=== PATIENT | male | born 1940 | race Caucasian/White ===

== ENCOUNTER 2017-12-18 08:06 | Inpatient (IN) | payer MEDICARE ==
[2017-12-18] VITALS (12 sets, daily range): BP systolic 114–156; BP diastolic 77–108
[~2017-12-18] VITALS: Ht 175.3 cm; Wt 80.1 kg
[~2017-12-18 08:06] MED LIST: ALBU17AE23 IH; ASPI-586 PO; CLOP75TA28 PO; HYDR-2890 PO; KETO75CA PO; LISI20TA PO; METH-53 PO; TR1C15 TD
--- OUTSIDE RECORDS SUMMARY | 2017-12-18 08:11 | XMS REPORT | Continuity of Care Document ---
Author Author [facility] Organization [facility] Address Unknown Phone Unavailable Allergies Active Description Code Type Severity Reaction Onset Reported/Identified Relationship to Patient Clinical Status Yes No Known Drug Allergies [id number] Drug Allergy Unknown N/A 08/20/2014 Medications There is no data. 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 Results There is no data. Encounters ACCT No. Visit Date/Time Discharge Status Pt. Type Provider Facility Loc./Unit Complaint [id number] 02/09/2016 21:30:00 02/10/2016 01:48:00 DIS Emergency ESDRAS RATLIFF DO [facility] ER [id number] 08/20/2014 22:34:00 08/21/2014 03:58:00 DIS Emergency ESDRAS RATLIFF DO [facility] ER
[2017-12-18] MEDS ORDERED: NITROGLYCERIN 0.4 MG SL TABS BTL 25'S SL ONE (08:18)
[2017-12-18] MEDS: NS IV 1000 ML 1,000 ML IV SCH ×4 (08:24→20:05)
[2017-12-18] MEDS ORDERED: NITROGLYCERIN 0.4 MG SL TABS BTL 25'S SL PRN ×2 (08:30→13:45)
[2017-12-18 08:33] LABS: BASOPHILS # (AUTO) 0.1 10^3/uL (0.0-0.1); BASOPHILS % (AUTO) 1 % (0-10); EOSINOPHILS # (AUTO) 0.6 10^3/uL (0.0-0.3); EOSINOPHILS % (AUTO) 3 % (0-10); HEMATOCRIT 42 % (40-54); HEMOGLOBIN 14.5 G/DL (13.3-17.7); LYMPHOCYTES # (AUTO) 3.6 X 10^3 (1.0-4.0); LYMPHOCYTES % (AUTO) 19 % (12-44); MEAN CORPUSCULAR HEMOGLOBIN 31 PG (25-34); MEAN CORPUSCULAR HGB CONC 34 G/DL (32-36); MEAN CORPUSCULAR VOLUME 89 FL (80-99); MEAN PLATELET VOLUME 9.7 FL (7.4-10.4); MONOCYTES # (AUTO) 1.1 X 10^3 (0.0-1.0); MONOCYTES % (AUTO) 6 % (0-12); NEUTROPHILS # (AUTO) 13.3 X 10^3 (1.8-7.8); NEUTROPHILS % (AUTO) 72 % (42-75); PLATELET COUNT 310 10^3/uL (130-400); RED BLOOD COUNT 4.75 10^6/uL (4.35-5.85); RED CELL DISTRIBUTION WIDTH 13.2 % (10.0-14.5); WHITE BLOOD COUNT 18.6 10^3/uL (4.3-11.0)
--- NOTE | 2017-12-18 08:35 | ED Chest Pain ---
General Chief Complaint: Chest Pain Stated Complaint: CHEST PAIN Source: patient, EMS Exam Limitations: no limitations History of Present Illness Date Seen by Provider: Dec 18, 2017 Time Seen by Provider: 08:27 Initial Comments This 77-year-old white male presents with a history of sudden chest pain and shortness of breath at 4 a.m. (4-1/2 hours prior to presentation to the emergency department). 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 The patient has had previous stents by his brim shaper in [place]. The patient has had thrombophlebitis but no pulmonary emboli. The patient describes his chest pain is somewhat diffuse throughout his chest and 8-9/10 in terms of severity at onset. On arrival the emergency department patient relate his chest pain was a 4 to a 5 /10. The patient has had diaphoresis. He denies vomiting. Allergies and Home Medications Allergies Coded Allergies: codeine (Verified Allergy, Unknown, 12/18/17) Home Medications Aspirin 81 Mg Tablet.dr, 81 MG PO DAILY, (Reported) Clopidogrel Bisulfate 75 Mg Tablet, 1 TAB PO DAILY, (Reported) Hydrocodone Bit/Acetaminophen 1 Each Tablet, 1 EACH PO PRN PRN for PAIN, ( Reported) Lisinopril 20 Mg Tablet, 20 MG PO DAILY, (Reported) Triamcinolone Acet 15 Gm Cr, 1 TD UD, (Reported) Patient Home Medication List Home Medication List Reviewed: Yes Review of Systems Constitutional: No chills, diaphoresis, No fever, weakness EENTM: No Double Vision Respiratory: Denies Cough, SOA at Rest Cardiovascular: See HPI, Chest Pain, Denies Irregular Heart Rate, Denies Palpitations Gastrointestinal: Denies Abdominal Pain, Denies Diarrhea, Denies Vomiting Genitourinary: Denies Burning, Denies Frequency Musculoskeletal: No back pain, No joint pain Skin: No rash Psychiatric/Neurological: No Symptoms Reported Endocrine: No Symptoms Reported Hematologic/Lymphatic: No Symptoms Reported Past Honxwcl-Tcirmy-Utcpjn Hx Immunizations Up To Date Date of Pneumonia Vaccine: Aug 01, 2013 Seasonal Allergies Seasonal Allergies: No Surgeries Surgeries: Neurological, Orthopedic, Tonsillectomy Respiratory Respiratory Disorders: COPD Cardiovascular Cardiac Disorders: Angina, Hypertension Reproductive System Hx Reproductive Disorders: No Musculoskeletal Musculoskeletal Disorders: Degenerate Disk Disease, Arthritis Blood Transfusions Adverse Reaction to a Blood Tr: No Reviewed Nursing Assessment Reviewed/Agree w Nursing PMH: Yes Physical Exam Vital Signs Vital Signs - First Documented 12/18/17 08:06 Temp 98.0 Pulse 122 Resp 18 B/P (MAP) 143/92 (109) Pulse Ox 99 O2 Delivery Nasal Cannula O2 Flow Rate 2.00 FiO2 99 Capillary Refill : General Appearance: Cachetic, Mild Distress HEENT: Normal ENT Inspection Neck: Normal Inspection Respiratory: Lungs Clear, Normal Breath Sounds, No Accessory Muscle Use Cardiovascular: Regular Rate, Rhythm, Tachycardia Gastrointestinal: Normal Bowel Sounds, Non Tender Extremity: Normal Capillary Refill, Normal Inspection, Normal Range of Motion Neurologic/Psychiatric: Alert, Oriented x3, No Motor/Sensory Deficits, Normal Mood/Affect Skin: Normal Color, Diaphoresis Critical Care Note Critical Care Total Time (minutes) 45 minutes with initial evaluation and interventions. Progress/Results/Core Measures Results/Orders Lab Results Laboratory Tests Test 12/18/17 08:20 Range/Units White Blood Count 18.6 H 4.3-11.0 10^3/uL Red Blood Count 4.75 4.35-5.85 10^6/uL Hemoglobin 14.5 13.3-17.7 G/DL Hematocrit 42 40-54 % Mean Corpuscular Volume 89 80-99 FL Mean Corpuscular Hemoglobin 31 25-34 PG Mean Corpuscular Hemoglobin Concent 34 32-36 G/DL Red Cell Distribution Width 13.2 10.0-14.5 % Platelet Count 310 130-400 10^3/uL Mean Platelet Volume 9.7 7.4-10.4 FL Neutrophils (%) (Auto) 72 42-75 % Lymphocytes (%) (Auto) 19 12-44 % Monocytes (%) (Auto) 6 0-12 % Eosinophils (%) (Auto) 3 0-10 % Basophils (%) (Auto) 1 0-10 % Neutrophils # (Auto) 13.3 H 1.8-7.8 X 10^3 Lymphocytes # (Auto) 3.6 1.0-4.0 X 10^3 Monocytes # (Auto) 1.1 H 0.0-1.0 X 10^3 Eosinophils # (Auto) 0.6 H 0.0-0.3 10^3/uL Basophils # (Auto) 0.1 0.0-0.1 10^3/uL Neutrophils % (Manual) 75 % Lymphocytes % (Manual) 21 % Monocytes % (Manual) 2 % Eosinophils % (Manual) 2 % Basophils % (Manual) 0 % Band Neutrophils 0 % Blood Morphology Comment NORMAL Prothrombin Time 13.6 12.2-14.7 SEC INR Comment 1.0 0.8-1.4 Activated Partial Thromboplast Time 28 24-35 SEC D-Dimer 2.09 H 0.00-0.49 UG/ML Sodium Level 137 135-145 MMOL/L Potassium Level 4.8 3.6-5.0 MMOL/L Chloride Level 105 98-107 MMOL/L Carbon Dioxide Level 19 L 21-32 MMOL/L Anion Gap 13 5-14 MMOL/L Blood Urea Nitrogen 45 H 7-18 MG/DL Creatinine 0.95 0.60-1.30 MG/DL Estimat Glomerular Filtration Rate > 60 BUN/Creatinine Ratio 47 Glucose Level 103 70-105 MG/DL Calcium Level 9.9 8.5-10.1 MG/DL Magnesium Level 2.4 1.8-2.4 MG/DL Total Bilirubin 0.4 0.1-1.0 MG/DL Aspartate Amino Transf (AST/SGOT) 18 5-34 U/L Alanine Aminotransferase (ALT/SGPT) 17 0-55 U/L Alkaline Phosphatase 76 40-136 U/L Myoglobin 51.9 10.0-92.0 NG/ML Troponin I < 0.30 <0.30 NG/ML B-Type Natriuretic Peptide 13.3 <100.0 PG/ML Total Protein 8.1 6.4-8.2 GM/DL Albumin 4.2 3.2-4.5 GM/DL My Orders Orders - RADHA, SOPHIA Albrecht MD Cbc With Automated Diff (12/18/17 08:19) Magnesium (12/18/17 08:19) Chest 1 View, Ap/Pa Only (12/18/17 08:19) Ekg Tracing (12/18/17 08:19) Cardiac Profile 1 (12/18/17 08:19) Comprehensive Metabolic Panel (12/18/17 08:19) Myoglobin Serum (12/18/17 08:19) Protime With Inr (12/18/17 08:19) Partial Thromboplastin Time (12/18/17 08:19) O2 (12/18/17 08:19) Monitor-Rhythm Ecg Trace Only (3/4/18 08:19) Lipid Panel (12/19/17 06:00) Nitroglycerin 0.4 Mg Btl 25's (Nitrostat (12/18/17 08:30) Saline Lock/Iv-Start (12/18/17 08:19) BNP (12/18/17 08:19) Fibrin Degradation Products (12/18/17 08:19) Nitroglycerin 0.4 Mg Btl 25's (Nitrostat (12/18/17 08:18) Manual Differential (12/18/17 08:20) Ns Iv 1000 Ml (Sodium Chloride 0.9%) (12/18/17 08:45) Enoxaparin Injection (Lovenox Injection) (12/18/17 08:45) Ct Angio Chest W (12/18/17 09:39) Iohexol Injection (Omnipaque 350 Mg/Ml 1 (12/18/17 10:00) Sodium Chloride Flush (Catheter Flush Sy (12/18/17 10:00) Ns (Ivpb) (Sodium Chloride 0.9%) (12/18/17 10:00) Pharmacy Communication (Pharmacy Communi (12/18/17 09:55) Metoprolol Succinate (Xl) Tab (Toprol Xl (12/18/17 11:45) Medications Given in ED Current Medications Medications Dose Ordered Sig/William Route Start Time Stop Time Status Last Admin Dose Admin Enoxaparin Sodium 80 mg ONCE ONCE SC 12/18/17 08:45 12/18/17 08:46 DC 12/18/17 08:45 80 MG Iohexol 150 ml ONCE ONCE IV 12/18/17 10:00 12/18/17 10:01 DC 12/18/17 10:49 100 ML Nitroglycerin 0.4 mg UD PRN SL 12/18/17 08:30 12/18/17 08:21 0.4 MG Sodium Chloride 10 ml NEEDED PRN IV 12/18/17 10:00 12/18/17 10:49 10 ML Sodium Chloride 250 ml ONCE ONCE IV 12/18/17 10:00 12/18/17 10:01 DC 12/18/17 10:49 80 ML Vital Signs/I&O Vital Sign - Last 12Hours 12/18/17 12/18/17 12/18/17 12/18/17 08:06 08:06 09:20 11:10 Temp 98.0 Pulse 122 118 120 Resp 18 18 18 B/P (MAP) 143/92 (109) 114/77 (89) 124/81 (95) Pulse Ox 99 100 99 O2 Delivery Nasal Cannula Nasal Cannula Room Air Room Air O2 Flow Rate 2.00 FiO2 99 Progress Note : Time: 08:54 Progress Note The patient's EKG demonstrated a left posterior fascicular block with a right bundle branch block. The patient's rhythm was a sinus tachycardia with rate of 120. With the patient's permission I contacted Dr. Johnson and shared the patient's EKG by telemedicine. We did not have a previous EKG here at [facility] for comparison. Dr. Johnson's recommendation was that we look closely with the patient for both cardiovascular disease and pulmonary embolus. We both felt it was reasonable to treat patient with 1 mg/kg subcutaneous of Lovenox while we are awaiting results of the studies. Dr. Johnson will present to emergency department to evaluate the patient. 1030 a.m. I established number 18 IV and right side of the patient's neck. The patient's d-dimer was elevated and I ordered a CTA for PE. The patient has been pain-free since he was given his first sublingual nitroglycerin. 11:[address] of the chest films reveal evidence of pulmonary embolus. I visited with Dr. Johnson who recommended that we initiate Toprol and admit the patient to contact stepdown. I visited with Dr. Artis who is kind enough to admit the patient. Departure Communication (Admissions) Time/Spoke to Admitting Phy: 11:[address] Artis. Time/Spoke to Consulting Phy: 09:00 Communication/Consulting Dr. Johnson. Impression Impression: Primary Impression: Chest pain Qualified Codes: R07.9 - Chest pain, unspecified Disposition: ADMITTED INPATIENT Condition: Improved Admissions Decision to Admit Reason: Admit from ER (General) Decision to Admit/Date: Dec 18, 2017 Time/Decision to Admit Time: 11:39 Departure-Patient Inst. Referrals: OSMIN GLASER MD (PCP/Family) Primary Care Physician SOPHIA GARCIA MD Dec 18, 2017 08:35
[2017-12-18 08:36] LABS: PROTHROMBIN TIME PATIENT 13.6 SEC (12.2-14.7)
[2017-12-18] MEDS ORDERED: ENOXAPARIN 80 MG/0.8 ML (LOVENOX) SYR SC ONE (08:45)
[2017-12-18 08:48] LABS: ALANINE AMINOTRANSFERASE 17 U/L (0-55); ALBUMIN 4.2 GM/DL (3.2-4.5); ALKALINE PHOSPHATASE 76 U/L (40-136); BILIRUBIN,TOTAL 0.4 MG/DL (0.1-1.0); BUN/CREATININE RATIO 47; CALCIUM 9.9 MG/DL (8.5-10.1); CARBON DIOXIDE 19 MMOL/L (21-32); CHLORIDE 105 MMOL/L (98-107); CREATININE SERUM 0.95 MG/DL (0.60-1.30); GFR ESTIMATED > 60; GLUCOSE 103 MG/DL (70-105); MAGNESIUM 2.4 MG/DL (1.8-2.4); POTASSIUM 4.8 MMOL/L (3.6-5.0); SODIUM 137 MMOL/L (135-145); TOTAL PROTEIN 8.1 GM/DL (6.4-8.2)
[2017-12-18 08:49] LABS: BAND NEUTROPHILS 0 %; BASOPHILS % (MANUAL) 0 %; EOSINOPHILS % (MANUAL) 2 %; LYMPHOCYTES % (MANUAL) 21 %; MONOCYTES % (MANUAL) 2 %; NEUTROPHILS % (MANUAL) 75 %; RBC MORPH NORMAL
[2017-12-18 08:54] LABS: MYOGLOBIN SERUM 51.9 NG/ML (10.0-92.0)
--- NOTE | 2017-12-18 09:22 | Diagnostic Imaging Report ---
EXAMINATION: Portable chest. INDICATION: Chest pain. FINDINGS: There are chronic interstitial changes present within the lungs. There appears to be more prominent interstitial prominence at the lung bases bilaterally. This suggests the possibility of superimposed interstitial edema or interstitial infiltrates. There is no alveolar consolidation or evidence of an effusion. There is no pneumothorax. Thoracic aorta appears tortuous. There is no evidence of pneumothorax. There are prior operative changes involving the cervical spine. IMPRESSION: 1. There are what appear to be chronic interstitial changes within the lungs but the prominence of basilar interstitial markings suggest the possibility of superimposed interstitial edema or mild interstitial pneumonia. Dictated by: Dictated on workstation # [id number]
[2017-12-18] MEDS ORDERED: IOHEXOL 350 MG/ML 150 ML (OMNIPAQUE 350) VIAL IV ONE (10:00)
[2017-12-18] MEDS ORDERED: CATHETER FLUSH 10 ML SYR IV PRN (10:00)
[2017-12-18] MEDS ORDERED: NS 250 ML (IVPB) BAG IV ONE (10:00)
--- NOTE | 2017-12-18 11:04 | Diagnostic Imaging Report ---
PROCEDURE: CT angiography of the chest with contrast. TECHNIQUE: Multiple contiguous axial images were obtained through the chest after uneventful bolus administration of intravenous contrast. Reconstructed CTA MIP acquisitions were also performed. INDICATION: Shortness of breath. History of bladder cancer. FINDINGS: There is good opacification of the aorta and pulmonary arteries. The aorta is atherosclerotic without evidence of aneurysm or dissection. The aortic root measures 4 cm. The pulmonary arteries are well opacified and show no filling defects to suggest pulmonary emboli. There is chronic lung disease with diffuse subpleural interstitial lung disease and mild honeycombing throughout the upper and lower lobes. This is more severe in the lower lobes bilaterally. No evidence of bronchiectasis. No consolidated infiltrate. No pleural effusions or pericardial effusions. No mediastinal or hilar adenopathy of pathologic size. There is pleural plaquing with calcification noted most prominently in the anterior portion of the right lower lung. IMPRESSION: 1. No evidence of pulmonary emboli. 2. 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 This is more prominent in the lower lobes. Dictated by: Dictated on workstation # [id number]
[2017-12-18] MEDS ORDERED: meTOproloL SUCCINATE 50 MG (TOPROL XL) TAB PO SCH (11:45)
[2017-12-18] MEDS ORDERED: ONDANSETRON 4 MG/2 ML (SDV) Z0FRAN ONE (11:52)
[2017-12-18] MEDS ORDERED: ONDANSETRON 4 MG/2 ML (SDV) Z0FRAN IVP ONE (12:00)
--- OUTSIDE RECORDS SUMMARY | 2017-12-18 12:10 | XMS REPORT | Continuity of Care Document ---
Author Author [facility] Organization [facility] Address Unknown Phone Unavailable Allergies Active Description Code Type Severity Reaction Onset Reported/Identified Relationship to Patient Clinical Status Yes No Known Drug Allergies [id number] Drug Allergy Unknown N/A 08/20/2014 Yes codeine [id number] Drug Allergy Unknown N/A 12/18/2017 Medications There is no data. 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 Results Test Result Range Complete blood count (CBC) with automated white blood cell (WBC) differential - 12/18/17 08:20 Blood leukocytes automated count (number/volume) 18.6 10*3/uL 4.3-11.0 Blood erythrocytes automated count (number/volume) 4.75 10*6/uL 4.35-5.85 Venous blood hemoglobin measurement (mass/volume) 14.5 g/dL 13.3-17.7 Blood hematocrit (volume fraction) 42 % 40-54 Automated erythrocyte mean corpuscular volume 89 [foz_us] 80-99 Automated erythrocyte mean corpuscular hemoglobin (mass per erythrocyte) 31 pg 25-34 Automated erythrocyte mean corpuscular hemoglobin concentration measurement ( mass/volume) 34 g/dL 32-36 Automated erythrocyte distribution width ratio 13.2 % 10.0-14.5 Automated blood platelet count (count/volume) 310 10*3/uL 130-400 Automated blood platelet mean volume measurement 9.7 [foz_us] 7.4-10.4 Automated blood neutrophils/100 leukocytes 72 % 42-75 Automated blood lymphocytes/100 leukocytes 19 % 12-44 Blood monocytes/100 leukocytes 6 % 0-12 Automated blood eosinophils/100 leukocytes 3 % 0-10 Automated blood basophils/100 leukocytes 1 % 0-10 Blood neutrophils automated count (number/volume) 13.3 10*3 1.8-7.8 Blood lymphocytes automated count (number/volume) 3.6 10*3 1.0-4.0 Blood monocytes automated count (number/volume) 1.1 10*3 0.0-1.0 Automated eosinophil count 0.6 10*3/uL 0.0-0.3 Automated blood basophil count (count/volume) 0.1 10*3/uL 0.0-0.1 PT panel in platelet poor plasma by coagulation assay - 12/18/17 08:20 Prothrombin time (PT) in platelet poor plasma by coagulation assay 13.6 s 12.2-14.7 INR in platelet poor plasma or blood by coagulation assay 1.0 0.8-1.4 Activated partial thromboplastin time (aPTT) in platelet poor plasma bycoagulation assay - 12/18/17 08:20 Activated partial thromboplastin time (aPTT) in platelet poor plasma bycoagulation assay 28 s 24-35 Fibrin D-dimer FEU measurement in platelet poor plasma (mass/volume) - 08:20 Fibrin D-dimer FEU measurement in platelet poor plasma (mass/volume) 2.09 ug/mL 0.00-0.49 Comprehensive metabolic panel - 12/18/17 08:20 Serum or plasma sodium measurement (moles/volume) 137 mmol/L 135-145 Serum or plasma potassium measurement (moles/volume) 4.8 mmol/L 3.6-5.0 Serum or plasma chloride measurement (moles/volume) 105 mmol/L 98-107 Carbon dioxide 19 mmol/L 21-32 Serum or plasma anion gap determination (moles/volume) 13 mmol/L 5-14 Serum or plasma urea nitrogen measurement (mass/volume) 45 mg/dL 7-18 Serum or plasma creatinine measurement (mass/volume) 0.95 mg/dL 0.60-1.30 Serum or plasma urea nitrogen/creatinine mass ratio 47 NRG Serum or plasma creatinine measurement with calculation of estimated glomerular filtration rate > NRG Serum or plasma glucose measurement (mass/volume) 103 mg/dL 70-105 Serum or plasma calcium measurement (mass/volume) 9.9 mg/dL 8.5-10.1 Serum or plasma total bilirubin measurement (mass/volume) 0.4 mg/dL 0.1-1.0 Serum or plasma alkaline phosphatase measurement (enzymatic activity/volume) 76 U/L 40-136 Serum or plasma aspartate aminotransferase measurement (enzymatic activity/ volume) 18 U/L 5-34 Serum or plasma alanine aminotransferase measurement (enzymatic activity/volume ) 17 U/L 0-55 Serum or plasma protein measurement (mass/volume) 8.1 g/dL 6.4-8.2 Serum or plasma albumin measurement (mass/volume) 4.2 g/dL 3.2-4.5 Magnesium - 12/18/17 08:20 Magnesium 2.4 mg/dL 1.8-2.4 Blood manual differential performed detection - 12/18/17 08:20 Blood monocytes/100 leukocytes 2 % NRG Manual blood segmented neutrophils/100 leukocytes 75 % NRG Blood band neutrophils/100 leukocytes 0 % NRG Manual blood lymphocytes/100 leukocytes 21 % NRG Manual eosinophils/100 leukocytes in nose 2 % NRG Manual blood basophils/100 leukocytes 0 % NRG Blood erythrocyte morphology finding identification NORMAL NRG Serum or plasma troponin i.cardiac measurement (mass/volume) - 12/18/17 08:20 Serum or plasma troponin i.cardiac measurement (mass/volume) < ng/ mL <0.30 Myoglobin, serum - 12/18/17 08:20 Myoglobin, serum 51.9 ng/mL 10.0-92.0 Serum or plasma lithium measurement (moles/volume) - 12/18/17 08:20 BNP level 13.3 pg/mL <100.0 Encounters ACCT No. Visit Date/Time Discharge Status Pt. Type Provider Facility Loc./Unit Complaint [id number] 02/09/2016 21:30:00 02/10/2016 01:48:00 DIS Emergency ESDRAS RATLIFF DO [facility] ER [id number] 08/20/2014 22:34:00 08/21/2014 03:58:00 DIS Emergency ESDRAS RATLIFF DO [facility] ER [id number] 12/18/2017 11:37:00 ACT Inpatient MAKENZIE DOMINGO DO [facility] ICU CHEST PAIN [id number] 12/18/2017 08:48:00 Document Registration
[2017-12-18] MEDS ORDERED: ONDANSETRON 4 MG/2 ML (SDV) Z0FRAN IVP PRN ×2 (14:24→21:15)
--- NOTE | 2017-12-18 14:37 | Consultation-Cardiology ---
HPI-Cardiology Cardiology Consultation: Date of Consultation 12/18/17 Time Seen by Provider: 13:40 Date of Admission Attending Physician Rafaela Artis DO Admitting Physician Anya Wills MD Consulting Physician TERRY LIVINGSTON MD, MA, FACP, FACC, FSCAI, CCDS HPI: Chief Complaint: Shortness of breath, chest discomfort 77 yo man with history of CAD and PAD (treated at [place], [place]) admitted with 2-3 days of gen malaise and intermittent epigastric and lower midsternal discomfort (lasting minutes to hours, mild to mod, sharp to dull, nonradiating, occurring more than once a day, different from previous angina that has led to coronary stentings) and increasing exertional shortness of breath and dizziness w/o hillary syncope. Denies palp or leg swelling. Has chronic joint and back discomfort Review of Systems-Cardiology Review of Systems Constitutional: malaise, tiredness, No weight loss, No weight gain Eyes: No vision change Ears/Nose/Throat: No ear discharge, No nasal drainage, No recent hearing loss Respiratory: As described under HPI Cardiovascular: As described under HPI Gastrointestinal: No constipation, No diarrhea, No nausea, No vomiting Genitourinary: No dysuria, No hematuria, No urine frequency changes Musculoskeletal: As describe under HPI Skin: No rash, No ulcerations Psychiatric/Neurological: No seizure, No focal weakness, No syncope Hematologic: No bleeding abnormalities ZRY-Wmxhxu-Jxmzdh Hx Patient Social History Alcohol Use: Occasionally Uses Recreational Drug Use: Yes Drug of Choice: MARIJUANA Smoking Status: Former Smoker Former smoker/When Quit: Sep 02, 1981 Recent Foreign Travel: No Recent Infectious Disease Expo: No Hospitalization with Isolation: Denies Physical Abuse Screen: No Sexual Abuse: No Immunizations Up To Date Date of Pneumonia Vaccine: Aug 01, 2013 Date of Influenza Vaccine: Nov 20, 2017 Past Medical History PMH As described under Assessment. Family Medical History Family Medical History: Does not report fam h/o of early CAD or SCD but is not aware of details, being an adopted child Allergies and Home Medications Allergies Coded Allergies: codeine (Verified Allergy, Unknown, 12/18/17) Home Medications Aspirin 81 Mg Tablet.dr, 81 MG PO DAILY, (Reported) Clopidogrel Bisulfate 75 Mg Tablet, 1 TAB PO DAILY, (Reported) Hydrocodone Bit/Acetaminophen 1 Each Tablet, 1 EACH PO PRN PRN for PAIN, ( Reported) Lisinopril 20 Mg Tablet, 20 MG PO DAILY, (Reported) Triamcinolone Acet 15 Gm Cr, 1 TD UD, (Reported) Patient Home Medication List Home Medication List Reviewed: Yes Physical Exam-Cardiology Physical Exam Vital Signs/I&O Vital Sign - Last 12Hours 12/18/17 12/18/17 12/18/17 12/18/17 08:06 08:06 09:20 11:10 Temp 98.0 Pulse 122 118 120 Resp 18 18 B/P (MAP) 143/92 (109) 114/77 (89) 124/81 (95) Pulse Ox 99 100 99 O2 Delivery Nasal Cannula Nasal Cannula Room Air Room Air O2 Flow Rate 2.00 FiO2 99 12/18/17 12/18/17 12/18/17 12:24 12:54 13:00 Pulse 107 95 95 Resp 18 20 B/P (MAP) 116/88 123/78 (93) Pulse Ox 98 100 O2 Delivery Room Air Nasal Cannula O2 Flow Rate 2.00 Capillary Refill : Less Than 3 Seconds Constitutional: AAO x 3, well-developed, well-nourished HEENT: PERRL, EOMI, hearing is well preserved, No xanthelasmas are seen Neck: No non-tender, carotid pulses are 2 + bilaterally, with good upstrokes Respiratory: No accessory muscle use, lungs clear to percussion, other (fair air entry; prolonged exp phase ) Cardiovascular: regular rate-rhythm, S1 and S2, systolic murmur (2-3/6 MSM) Gastrointestinal: No tender, soft, No guarding, No rebound, audible bowel sounds Extremities: No clubbing, No cyanosis, No significant edema Neurologic/Psychiatric: oriented x 3, grossly intact, power is 5/5 both on sides Skin: No rash on exposed areas, No ulcerations on exposed areas Data Review Labs Laboratory Tests 12/18/17 08:20: White Blood Count 18.6H, Red Blood Count 4.75, Hemoglobin 14.5, Hematocrit 42, Mean Corpuscular Volume 89, Mean Corpuscular Hemoglobin 31, Mean Corpuscular Hemoglobin Concent 34, Red Cell Distribution Width 13.2, Platelet Count 310, Mean Platelet Volume 9.7, Neutrophils (%) (Auto) 72, Lymphocytes (%) (Auto) 19, Monocytes (%) (Auto) 6, Eosinophils (%) (Auto) 3, Basophils (%) (Auto) 1, Neutrophils # (Auto) 13.3H, Lymphocytes # (Auto) 3.6, Monocytes # (Auto) 1.1H, Eosinophils # (Auto) 0.6H, Basophils # (Auto) 0.1, Neutrophils % (Manual) 75, Lymphocytes % (Manual) 21, Monocytes % (Manual) 2, Eosinophils % (Manual) 2, Basophils % (Manual) 0, Band Neutrophils 0, Blood Morphology Comment NORMAL, Prothrombin Time 13.6, INR Comment 1.0, Activated Partial Thromboplast Time 28, D-Dimer 2.09H, Sodium Level 137, Potassium Level 4.8, Chloride Level 105, Carbon Dioxide Level 19L, Anion Gap 13, Blood Urea Nitrogen 45H, Creatinine 0.95 , Estimat Glomerular Filtration Rate > 60, BUN/Creatinine Ratio 47, Glucose Level 103, Calcium Level 9.9, Magnesium Level 2.4, Total Bilirubin 0.4, Aspartate Amino Transf (AST/SGOT) 18, Alanine Aminotransferase (ALT/SGPT) 17, Alkaline Phosphatase 76, Myoglobin 51.9, Troponin I < 0.30, B-Type Natriuretic Peptide 13.3, Total Protein 8.1, Albumin 4.2 Laboratory Tests 12/18/17 08:20 A/P-Cardiology Assessment/Admission Diagnosis Chest discomfort and shortness of breath w/o evidence of OH (so far) CAD with h/o multiple cor stents at [place], [place]. Last reported to be over a year ago H/o multiple percutaneous and surgical interventions to the R leg at [place]. 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
[2017-12-18] MEDS ORDERED: ASPIRIN 81 MG CHEW (CHILDREN'S ASA) PO ONE (14:45)
[2017-12-18] MEDS ORDERED: ACETAMINOPHEN 325 MG TABLET/CAPLET (TYLENOL) PO PRN (14:45)
[2017-12-18] MEDS ORDERED: CLOPIDOGREL 75 MG (PLAVIX) TABLET PO ONE (14:45)
[2017-12-18] MEDS ORDERED: HYDR-3820 PO (15:28)
[2017-12-18] MEDS ORDERED: ATOR20TA66 PO (15:28)
[2017-12-18] MEDS ORDERED: ASPI-999 PO (15:28)
[2017-12-18] MEDS ORDERED: CHOL100048 PO (15:28)
[2017-12-18] MEDS ORDERED: LISI10TA2 PO (15:28)
[2017-12-18] MEDS ORDERED: AMIT25TA9 PO (15:28)
[2017-12-18] MEDS ORDERED: morphine INJ 4 MG/ML 1 ML (VIAL/SYRINGE) ONE (17:11)
[2017-12-18] MEDS ORDERED: morphine INJ 4 MG/ML 1 ML (VIAL/SYRINGE) IVP PRN (17:15)
[2017-12-18] MEDS ORDERED: MIDAZOLAM 5 MG/5 ML (VERSED) VIAL ONE (18:56)
[2017-12-18] MEDS ORDERED: diphenhydrAMINE 50 MG/ML INJ (BENADRYL) ONE (18:56)
[2017-12-18] MEDS ORDERED: fentaNYL INJECTION 100 MCG/2 ML AMP ONE (18:56)
[2017-12-18] MEDS ORDERED: RT-ALBUTEROL/IPRATROPIUM 3 ML (DUONEB) VIAL INH PRN (19:00)
[2017-12-18] MEDS ORDERED: LIDOCAINE 1% INJ 50 ML (XYLOCAINE) VIAL ONE (19:23)
[2017-12-18] MEDS ORDERED: HEParin (CATH LAB) 2,000 ML IV ONE (19:23)
[2017-12-18] MEDS ORDERED: NS IV 1000 ML 1,000 ML ONE (19:23)
--- NOTE | 2017-12-18 19:31 | Cardiac Procedure Note-CS/ASA ---
Pre-Procedure Note Pre-Op Procedure Note H&P Reviewed The H&P was reviewed, patient examined and no changes noted. Date H&P Reviewed: Dec 18, 2017 Time H&P Reviewed: 19:31 Conscious Sedation Pre-Proced Time Reviewed: 19:31 ASA Class: 3 Airway Mallampati Classification: ([place] appropriate class) I. II. III, IV Lungs Heart ASA score ASA 1: a normal healthy patient ASA 2: a patient with a mild systemic disease (mid diabetes, controlled hypertension, obesity ASA 3: a patient with a severe systemic disease that limits activity (angina , COPD, prior Myocardial infarction) ASA 4: a patient with an incapacitating disease that is a constant threat to life (CHF, renal failure) ASA 5: a moribund patient not expected to survive 24 hrs. (ruptured aneurysm) ASA 6: a declared brain patient whose organs are being harvested. For emergent operations, add the letter E after the classification Grade 2 Sedation Plan: Analgesia, Amnesia, Plan communicated to team members, Discussed options with patient/fam, Discussed risks with patient/fam Note The patient is an appropriate candidate to undergo the planned procedure, sedation, and anesthesia. The patient immediately re-assessed prior to indication. TERRY LIVINGSTON MD FACP FAC CCDS Dec 18, 2017 19:31
[2017-12-18] MEDS ORDERED: ENOXAPARIN 80 MG/0.8 ML (LOVENOX) SYR SC SCH (20:00)
[2017-12-18] MEDS ORDERED: meTOprolol 5 MG/5 ML (LOPRESSOR) VIAL ONE (20:19)
[2017-12-18] MEDS ORDERED: HEParin 1000 UNIT/ML (10ML VIAL) FOR BOLUS ONE (20:25)
[2017-12-18] MEDS ORDERED: NITRO DRIP 25000 MCG/D5W 250 ML IV ONE (20:25)
[2017-12-18] MEDS ORDERED: EPTIFIBATIDE BOLUS 20 ML IV ONE (20:29)
[2017-12-18] MEDS ORDERED: ASPIRIN 81 MG CHEW (CHILDREN'S ASA) ONE (20:51)
[2017-12-18] MEDS ORDERED: CLOPIDOGREL 300 MG (PLAVIX) TABLET PO ONE (20:51)
[2017-12-18] MEDS ORDERED: CLOPIDOGREL 75 MG (PLAVIX) TABLET ONE (20:51)
[2017-12-18] MEDS ORDERED: ATORVASTATIN 40 MG (LIPITOR) TABLET PO SCH (21:00)
[2017-12-18] MEDS ORDERED: NS IV 1000 ML 1,000 ML IV SCH (21:14)
[2017-12-18] MEDS ORDERED: PATIENT MAY USE OWN MEDS, ALL PO SCH (21:15)
[2017-12-18] MEDS: RT-ALBUTEROL/IPRATROPIUM 3 ML (DUONEB) VIAL INH SCH (22:05)
--- NOTE | 2017-12-18 22:05 | CARDIAC CATHETERIZATION ---
DATE OF SERVICE: 12/18/2017 CARDIAC CATHETERIZATION AND CORONARY INTERVENTION REPORT HISTORY: The patient is a 77-year-old man with known history of heart disease who has had coronary stenting in [place], [place]. He presents with symptoms of unstable angina. Cardiac catheterization was carried out after having obtained informed consent for cardiac catheterization and possible ad hoc coronary intervention. PROCEDURE: He was brought to the cardiac catheterization laboratory. Left groin was prepared and draped in usual sterile fashion. A 1% lidocaine was used for local anesthesia. Modified Seldinger technique was used to advance a 6-Armenian sheath in right femoral artery. A 6-Armenian JR4 catheter was used for right coronary angiography. A 6-Armenian JL4 catheter was used for left coronary angiography. A 6-Armenian pigtail catheter was used for left heart catheterization and left ventricular angiography. Angiography of the right femoral artery was carried out through the sheath. All catheter exchanges were made over an exchange length wire. PERCUTANEOUS INTERVENTION TO THE RIGHT CORONARY ARTERY: The right coronary artery had 80% midvessel and 90% distal vessel stenoses. We used a 6-Armenian JR4 guide catheter with side holes. We advanced a BMW wire across the lesion and the tip was placed in the distal posterolateral branch. We advanced Alpine Xience 2.5 x 12 mm stent to the mid right coronary artery lesion. This was deployed at 14 atmospheres. The balloon was removed. We advanced another Alpine Xience 2.5 x 12 mm stent to the distal right coronary artery lesion. This lesion is immediately following a previously placed stent which is patent. The stent was placed at the 90% stenosis and deployed at 14 atmospheres. The stent balloon was then used to balloon the areas of stent overlap using pressures of up to 18 atmospheres. The stent balloon was removed. The patient received a total of 400 mcg of intracoronary nitroglycerin in divided doses. The final result is good. No significant residual stenosis seen at the site of stent deployment. The right coronary artery overall has diffuse moderate disease. HEMODYNAMICS: Left ventricular end-diastolic pressure following coronary angiography was 17 mmHg. There is no significant pressure gradient pullback across the aortic valve. Ascending aortic pressure was 204/101 with a mean 117 mmHg. LEFT VENTRICULAR ANGIOGRAPHY: Left ventricular angiography was carried out in the right anterior oblique projection. Global left ventricular systolic function normal. No regional wall motion abnormality is seen. Left ventricular ejection fraction is approximately 60%. There does not appear to be significant mitral regurgitation. CORONARY ANGIOGRAPHY: Left main coronary artery is free of significant disease. Left anterior descending and left circumflex arteries have diffuse moderate disease. Diffuse coronary calcification is seen. There is a patent stent in the mid to distal left anterior descending artery without significant in-stent restenosis. The right coronary artery is dominant. It had an 80% mid vessel stenosis which successful stenting was carried out with Alpine Xience 2.5 x 12 mm stent. The right coronary artery had a distal lesion. This following the previously placed stent. The previously placed stent was patent. The 90% stenosis was stented with Alpine Xience 2.5 x 12 mm stent with the reduction of stenosis to 0% residual. The right coronary artery has diffuse moderate disease. CONCLUSIONS: 1. An 80% mid vessel stenosis of the right coronary artery stented with Alpine Xience 2.5 x 12 mm stent and a distal 90% stenosis stented with Alpine Xience 2.5 x 12 mm stent. A previously placed right coronary artery stent that extends across the posterior descending branch is patent and does not exhibit significant in-stent restenosis. The posterior descending branch is patent. 2. Diffuse moderate coronary artery disease. 3. Patent stent in the mid to distal left anterior descending artery. 4. Moderate elevation of left ventricular end-diastolic pressure. 5. No significant mitral regurgitation seen on this study. 6. Normal global left ventricular systolic function with ejection fraction approximately 60%. DISCUSSION AND RECOMMENDATIONS: Treatment with dual antiplatelet therapy, statins, and beta blockers. Job ID: [id number] DocumentID: [id number] Dictated Date: 12/18/2017 21:07:08 Traffic Control Specialist Date: 12/18/2017 22:05:29 Dictated By: TERRY LIVINGSTON MD, MA, FACP, FACC, MTDD
[2017-12-19] VITALS (11 sets, daily range): BP systolic 89–143; BP diastolic 53–87
[2017-12-19] MEDS: RT-ALBUTEROL/IPRATROPIUM 3 ML (DUONEB) VIAL INH SCH (03:41)
--- NOTE | 2017-12-19 07:46 | Diagnostic Imaging Report ---
INDICATION: Chest pain. COMPARISON: 12/18/2017. FINDINGS: Low lung volumes. Reticular opacities in the lung bases are stable. Micronodular opacity in the right midlung zone also unchanged. No pleural effusion or pneumothorax. Stable cardiomediastinal silhouette and tortuous aorta. IMPRESSION: No change in basilar reticular nodular opacities which may be chronic in nature. Superimposed infectious/inflammatory process could be present. Dictated by: Dictated on workstation # [id number]
--- NOTE | 2017-12-19 07:46 | Short Stay Summary-Hospitalist ---
HPI History of Present Illness: Source: patient Date Seen 12/19/17 Attending Physician Rafaela Artis DO PCP Anya Wills MD Referring Physician Date of Admission Dec 18, 2017 at 11:37 Home Medications & Allergies Home Medications Reviewed patient Home Medication Reconciliation Form Allergies Allergies Coded Allergies codeine (Verified Allergy, Unknown, 12/18/17) Past Kuwexwh-Wxyoli-Kknybv Hx Patient Social History Alcohol Use: Occasionally Uses Recreational Drug Use: Yes Drug of Choice: MARIJUANA Smoking Status: Former Smoker Physical Abuse Screen: No Sexual Abuse: No Recent Foreign Travel: No Contact w/other who traveled: No Recent Hopitalizations: No Recent Infectious Disease Expo: No Immunizations Up To Date Date of Pneumonia Vaccine: Aug 01, 2013 Date of Influenza Vaccine: Nov 20, 2017 Seasonal Allergies Seasonal Allergies: No Surgeries Yes (r hand, neck, l wrist, hernia repair,) Neurological, Orthopedic, Tonsillectomy Respiratory Yes Cardiovascular Yes (heart cath) Angina, Hypertension Neurological No Reproductive System Hx Reproductive Disorders: No Genitourinary Yes (HX BLADDER CA) Gastrointestinal No Musculoskeletal Yes Degenerate Disk Disease, Arthritis Endocrine History of Endocrine Disorders: No HEENT History of HEENT Disorders: No Cancer Yes Bladder Psychosocial History of Psychiatric Problem: No Integumentary History of Skin or Integumenta: No Blood Transfusions History of Blood Disorders: No Adverse Reaction to a Blood Tr: No Reviewed Nursing Assessment Reviewed/Agree w Nursing PMH: Yes Physical Exam Physical Exam Vital Signs Vital Signs - First Documented 12/18/17 08:06 Temp 98.0 Pulse 122 Resp 18 B/P (MAP) 143/92 (109) Pulse Ox 99 O2 Delivery Nasal Cannula O2 Flow Rate 2.00 FiO2 99 Capillary Refill : Less Than 3 Seconds Results Results/Procedures Lab Laboratory Tests 12/18/17 08:20 Short Stay Diagnosis Discharge Diagnosis-Short Stay Final Discharge Diagnosis CAD Conclusion Plan Seen at 723 Clinical Quality Measures AMI/AHF: ASA po Prior to arrival: Yes (BY EMS) DVT/VTE Risk/Contraindication: Risk Factor Score Per Nursin RFS Level Per Nursing on Admit: 3=High QUIQUE ATWOOD MD Dec 19, 2017 07:46
[2017-12-19] MEDS ORDERED: ATOR80TA76 PO (08:39)
[2017-12-19] MEDS ORDERED: METO-370 PO (08:39)
[2017-12-19 09:00] LABS: BASOPHILS # (AUTO) 0.1 10^3/uL (0.0-0.1); BASOPHILS % (AUTO) 1 % (0-10); EOSINOPHILS # (AUTO) 0.4 10^3/uL (0.0-0.3); EOSINOPHILS % (AUTO) 3 % (0-10); HEMATOCRIT 26 % (40-54); HEMOGLOBIN 8.7 G/DL (13.3-17.7); LYMPHOCYTES # (AUTO) 3.3 X 10^3 (1.0-4.0); LYMPHOCYTES % (AUTO) 25 % (12-44); MEAN CORPUSCULAR HEMOGLOBIN 31 PG (25-34); MEAN CORPUSCULAR HGB CONC 34 G/DL (32-36); MEAN CORPUSCULAR VOLUME 92 FL (80-99); MEAN PLATELET VOLUME 9.4 FL (7.4-10.4); MONOCYTES # (AUTO) 0.8 X 10^3 (0.0-1.0); MONOCYTES % (AUTO) 6 % (0-12); NEUTROPHILS # (AUTO) 8.7 X 10^3 (1.8-7.8); NEUTROPHILS % (AUTO) 66 % (42-75); PLATELET COUNT 227 10^3/uL (130-400); RED BLOOD COUNT 2.81 10^6/uL (4.35-5.85); RED CELL DISTRIBUTION WIDTH 13.2 % (10.0-14.5); WHITE BLOOD COUNT 13.2 10^3/uL (4.3-11.0)
[2017-12-19] MEDS ORDERED: CLOPIDOGREL 75 MG (PLAVIX) TABLET PO SCH (09:00)
[2017-12-19] MEDS ORDERED: ASPIRIN 81 MG CHEW (CHILDREN'S ASA) PO SCH (09:00)
[2017-12-19] MEDS ORDERED: meTOproloL SUCCINATE 50 MG (TOPROL XL) TAB PO SCH (09:00)
--- NOTE | 2017-12-19 09:00 | Discharge Inst-Simple/Standard ---
Discharge Inst-Standard Discharge Medications New, Converted or Re-Newed RX: Call to Patients Pharmacy Patient Instructions/Follow Up Plan of Care/Instructions/FU: Please take your medications as written and keep your follow up appointments with Dr Johnson and Dr. Wills. If your symptoms return or worsen please seek evaluation. Activity as Tolerated: Yes Discharge Diet: Cardiac Diet Return to The Hospital For: Chest pain, SOB, worsening symptoms. QUIQUE ATWOOD MD Dec 19, 2017 9:00 am
--- NOTE | 2017-12-19 09:03 | Progress Note-Cardiology ---
Cardiology SOAP Progress Note Subjective: No cp post cor stent of 12/18/17. No palp or syncope or dyspnea or ankle swelling or groin discomfort Objective: I&O/Vital Signs Vital Sign - Last 12Hours 12/18/17 12/18/17 12/18/17 12/18/17 21:10 21:15 21:15 21:30 Pulse 75 75 73 Resp 10 26 B/P (MAP) 137/90 (106) 129/84 (99) Pulse Ox 99 97 97 O2 Delivery Nasal Cannula Nasal Cannula Nasal Cannula O2 Flow Rate 2.00 2.00 2.00 FiO2 99 12/18/17 12/18/17 12/18/17 12/18/17 21:45 22:00 22:30 23:00 Pulse 75 79 79 77 Resp 18 23 18 21 B/P (MAP) 134/85 (101) 140/87 (104) 156/99 (118) 142/86 (104) Pulse Ox 96 94 97 97 O2 Delivery Nasal Cannula Nasal Cannula Room Air Room Air O2 Flow Rate 2.00 2.00 12/18/17 12/19/17 12/19/17 12/19/17 23:30 00:00 00:00 01:00 Temp 97.0 Pulse 81 77 75 Resp 13 16 B/P (MAP) 147/86 (106) 131/85 (100) Pulse Ox 97 98 O2 Delivery Room Air Room Air Room Air O2 Flow Rate 12/19/17 12/19/17 12/19/17 12/19/17 01:00 02:00 03:00 03:42 Pulse 75 81 78 Resp 28 15 13 B/P (MAP) 122/83 (96) 96/53 (67) 130/70 (90) Pulse Ox 99 94 99 100 O2 Delivery Room Air Room Air Room Air Room Air 12/19/17 12/19/17 12/19/17 12/19/17 04:00 04:00 05:00 06:00 Pulse 85 89 79 Resp 17 B/P (MAP) 112/63 (79) 129/79 (96) () Pulse Ox 96 97 96 O2 Delivery Room Air Room Air Room Air Room Air 12/19/17 12/19/17 07:00 08:00 Pulse 80 87 Resp 17 B/P (MAP) 143/87 (105) Pulse Ox 99 O2 Delivery Room Air Intake and Output 12/19/17 00:00 Intake Total 2570 ml Output Total 700 ml Balance 1870 ml Weight (Pounds): 176 Weight (Ounces): 9.0 Weight (Calculated Kilograms): [id number] Groin site without hematoma: Yes Bruising: mild bruising Constitutional: AAO x 3, well-developed, well-nourished Respiratory: No accessory muscle use, lungs clear to percussion, other (fair air entry; prolonged exp phase ) Cardiovascular: regular rate-rhythm, S1 and S2, systolic murmur (2-3/6 MSM) Gastrointestional: No tender, soft, No guarding, No rebound, audible bowel sounds Extremities: No clubbing, No cyanosis, No significant edema Neurologic/Psychiatric: oriented x 3, grossly intact, power is 5/5 both on sides Skin: No rash on exposed areas, No ulcerations on exposed areas Results/Procedures: Labs Laboratory Tests 12/18/17 16:04: Troponin I < 0.30 12/18/17 18:28: Troponin I < 0.30 Laboratory Tests 12/18/17 08:20 A/P: Assessment: Unstable angina treated with stenting of mid and distal RCA on 12/18/17 CAD with h/o multiple cor stents at [place], [place]. Last card cath and PCI on 12/18/17: 80% mid vessel stenosis of the RCA stented with Alpine Xience 2.5 x 12 mm stent and a distal 90% stenosis stented with Alpine Xience 2.5 x 12 mm stent. A previously placed RCA stent that extends across the posterior descending branch is patent. The posterior descending branch is patent.Diffuse moderate coronary artery disease.Patent stent in the mid to distal left anterior descending artery. LV diastolic dysfunction: moderate elevation of left ventricular end-diastolic pressure on card cath of 12/18/17. No significant mitral regurgitation seen on that study. Normal global left ventricular systolic function with ejection fraction approximately 60% on card cath of 12/18/17 H/o multiple percutaneous and surgical interventions to the R leg at [place], [place]. 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 Clinical Quality Measures AMI/AHF: ASA po Prior to arrival: Yes (BY EMS) TERRY LIVINGSTON MD FACP FACC CCDS Dec 19, 2017 09:03
--- NOTE | 2017-12-19 09:07 | Short Stay Summary-Hospitalist ---
HPI History of Present Illness: HPI/Chief Complaint Pt is a 77yoCM with a PMH of CAD and LA 1 year ago, PAD, and HTN who presented to the Er with CC of dull chest pain that awoke him from sleep yesterday at 4am. He complained of SOB, nausea, and diaphoresis with the chest pain and felt it was similar pain to his previous heartache. He denied any alleviating or aggravating factors. He had been sick the past few days with nausea and vomiting. He states that his pain has completely resolved today and he feels much better. He would like to DC home if able. Source: patient Exam Limitations: no limitations Date Seen 12/19/17 Time Seen by Provider: 07:23 Attending Physician Rafaela Artis Wen-Chou MD Referring Physician Date of Admission Dec 18, 2017 at 11:37 Home Medications & Allergies Home Medications Reviewed patient Home Medication Reconciliation Form Allergies Allergies Coded Allergies codeine (Verified Allergy, Unknown, 12/18/17) Past Hheoebq-Rehneq-Ugdier Hx Patient Social History Alcohol Use: Occasionally Uses Recreational Drug Use: Yes Drug of Choice: MARIJUANA-daily Smoking Status: Former Smoker Physical Abuse Screen: No Sexual Abuse: No Recent Foreign Travel: No Contact w/other who traveled: No Recent Hopitalizations: No Recent Infectious Disease Expo: No Immunizations Up To Date Date of Pneumonia Vaccine: Aug 01, 2013 Date of Influenza Vaccine: Nov 20, 2017 Seasonal Allergies Seasonal Allergies: No Surgeries Yes (r hand, neck, l wrist, hernia repair,) Coronary Stent, Neurological, Orthopedic, Tonsillectomy Respiratory No Cardiovascular Yes (heart cath) Angina, Coronary Artery Disease, Hypertension Neurological Yes Neuropathy Reproductive System Hx Reproductive Disorders: No Genitourinary Yes (HX BLADDER CA) Gastrointestinal No Musculoskeletal Yes Amputee (digit of right hand), Degenerate Disk Disease, Arthritis Endocrine History of Endocrine Disorders: No HEENT History of HEENT Disorders: No Cancer Yes Bladder Psychosocial History of Psychiatric Problem: No Integumentary History of Skin or Integumenta: No Blood Transfusions History of Blood Disorders: No Adverse Reaction to a Blood Tr: No Reviewed Nursing Assessment Reviewed/Agree w Nursing PMH: Yes Family Medical History Significant Family History: Other Conditions/Hx Other Significan Family Hx: Patient is adopted so history is limited- father alcoholic, mother at 92yo of "natural causes" Review of Systems Constitutional: diaphoresis, weakness EENTM: No blurred vision, No double vision, No nose congestion, No throat pain Respiratory: No cough, No dyspnea on exertion, short of breath Cardiovascular: chest pain, No edema, Hx of Intervention, palpitations, No syncope Gastrointestinal: abdominal pain, No constipation, No diarrhea, nausea, vomiting Genitourinary: No dysuria, No frequency Musculoskeletal: No joint pain, No muscle pain Skin: No lesions, No rash Psychiatric/Neurological: Denies Emotional Problems, Denies Headache Physical Exam Physical Exam Vital Signs Vital Signs - First Documented 12/18/17 08:06 Temp 98.0 Pulse 122 Resp 18 B/P (MAP) 143/92 (109) Pulse Ox 99 O2 Delivery Nasal Cannula O2 Flow Rate 2.00 FiO2 99 Capillary Refill : Less Than 3 Seconds General Appearance: No Apparent Distress, WD/WN HEENT: PERRL/EOMI, Moist Mucous Membranes Neck: No JVD, No Thyromegaly Respiratory: Lungs Clear, No Respiratory Distress Cardiovascular: Regular Rate, Rhythm, No Murmur Gastrointestinal: Normal Bowel Sounds, Non Tender, Soft Extremity: Normal Capillary Refill, No Calf Tenderness, No Pedal Edema, Other ( right hand index finger amuptation) Neurologic/Psychiatric: Alert, Oriented x3, Normal Mood/Affect Skin: Normal Color, Warm/Dry Lymphatic: No Adenopathy Results Results/Procedures Lab Laboratory Tests 12/18/17 08:20 Short Stay Diagnosis Discharge Diagnosis-Short Stay Admission Diagnosis Chest Pain Final Discharge Diagnosis CAD Conclusion Plan Seen at [id number] Clinical Quality Measures AMI/AHF: ASA po Prior to arrival: Yes (BY EMS) DVT/VTE Risk/Contraindication: Risk Factor Score Per Nursin RFS Level Per Nursing on Admit: 3=High QUIQUE ATWOOD MD Dec 19, 2017 09:06
[2017-12-19 09:30] LABS: ALANINE AMINOTRANSFERASE 10 U/L (0-55); ALBUMIN 3.2 GM/DL (3.2-4.5); ALKALINE PHOSPHATASE 47 U/L (40-136); BILIRUBIN,TOTAL 0.4 MG/DL (0.1-1.0); BUN/CREATININE RATIO 44; CALCIUM 7.8 MG/DL (8.5-10.1); CARBON DIOXIDE 18 MMOL/L (21-32); CHLORIDE 112 MMOL/L (98-107); CHOLESTEROL 91 MG/DL (< 200); CREATININE SERUM 0.78 MG/DL (0.60-1.30); GFR ESTIMATED > 60; GLUCOSE 103 MG/DL (70-105); HDL CHOLESTEROL 17 MG/DL (40-60); MAGNESIUM 1.8 MG/DL (1.8-2.4); POTASSIUM 4.1 MMOL/L (3.6-5.0); SODIUM 136 MMOL/L (135-145); TOTAL PROTEIN 5.5 GM/DL (6.4-8.2); TRIGLYCERIDES 171 MG/DL (<150); VLDL CHOLESTEROL 34 MG/DL (5-40)
[2017-12-19] MEDS ORDERED: ATORVASTATIN 80 MG (LIPITOR) TABLET PO SCH (21:00)
== END 2017-12-19 10:55 | disposition home or self-care (01) | DRG 247 ==
LOC: EDUNIT# 08:06 → ER 08:08 → ICU 11:37
PROVIDERS: ADMIT Internal Medicine; ATTEND Internal Medicine
PROC: 027035Z Dilation of Coronary Artery, One Artery with Two Drug-eluting Intraluminal Devices, Percutaneous Approach (ICD-10-PCS; principal; 2017-12-18)
PROC: 4A023N7 Measurement of Cardiac Sampling and Pressure, Left Heart, Percutaneous Approach (ICD-10-PCS; 2017-12-18)
PROC: B2151ZZ Fluoroscopy of Left Heart using Low Osmolar Contrast (ICD-10-PCS; 2017-12-18)
PROC: B2111ZZ Fluoroscopy of Multiple Coronary Arteries using Low Osmolar Contrast (ICD-10-PCS; 2017-12-18)
DX: I25.110 Atherosclerotic heart disease of native coronary artery with unstable angina pectoris (principal); I10 Essential (primary) hypertension; J84.9 Interstitial pulmonary disease, unspecified; I73.9 Peripheral vascular disease, unspecified; I45.10 Unspecified right bundle-branch block; J44.9 Chronic obstructive pulmonary disease, unspecified; F12.90 Cannabis use, unspecified, uncomplicated; I25.2 Old myocardial infarction; Z87.891 Personal history of nicotine dependence; Z95.5 Presence of coronary angioplasty implant and graft; Z85.51 Personal history of malignant neoplasm of bladder
CPT/HCPCS: 36415; 71045; 71275; 80053; 80061; 83735; 83874; 83880; 84443; 84484; 85007; 85025; 85027; 85379; 85610; 85730; 93041; 93306; 93458; 94640

== ENCOUNTER → 2019-02-19 | Outpatient (CLI) | payer MEDICARE, OTHER ==
[~2019-02-19] MED LIST changes: +AMIT25TA9 PO; +ASPI-999 PO; +ATOR20TA66 PO; +ATOR80TA76 PO; +CHOL100048 PO; +HYDR-3820 PO; +LISI10TA2 PO; +METO-370 PO
== END ==
LOC: CARD 11:52
PROVIDERS: ATTEND Nurse Practitioner Family
DX: R55 Syncope and collapse (principal); I25.10 Atherosclerotic heart disease of native coronary artery without angina pectoris
CPT/HCPCS: 93225; 93226

== ENCOUNTER → 2019-02-20 | Outpatient (CLI) | payer MEDICARE, OTHER ==
[~2019-02-20] VITALS: Ht 175.3 cm; Wt 77.6 kg
[~2019-02-20] MED LIST changes: +CATHETER FLUSH 10 ML SYR IV PRN; +ONDANSETRON 4 MG/2 ML (SDV) Z0FRAN IVP ONE; +ONDANSETRON 4 MG/2 ML (SDV) Z0FRAN ONE; +REGADENOSON 0.4 MG/5 ML SYR (LEXISCAN) IV ONE
--- NOTE | 2019-02-20 18:09 | STRESS TEST ---
DATE OF SERVICE: 02/20/2019 RESTING AND POST REGADENOSON TECHNETIUM-99M TETROFOSMIN SPECT CT IMAGING ORDERING PHYSICIAN: LOGAN Dutton PRIMARY CARE PHYSICIAN: Dr. Wills. CLINICAL DIAGNOSES: Syncope and coronary artery disease. Baseline images were carried out after injection of 10.26 mCi technetium-99m Tetrofosmin. This was followed by 0.4 mg of regadenoson and 30.3 mCi technetium-99m Tetrofosmin for stress imaging. The electrocardiogram showed sinus rhythm at baseline. There was right bundle branch block at baseline. The electrocardiogram did not change significantly with the regadenoson infusion. The patient tolerated the procedure well. Review of images at rest and following stress indicates a small localized inferoapical perfusion defect. Gated images show normal global left ventricular systolic function with normal regional wall motion. Left ventricular ejection fraction is calculated to be 72%. Left ventricular end diastolic volume is 53 mL. TID is absent (1.01). CONCLUSIONS: 1. This study is indicative of a small amount of inferoapical ischemia. 2. Normal regional wall motion. 3. Normal global left ventricular systolic function with a calculated ejection fraction of 72%. Job ID: [id number] DocumentID: [id number] Dictated Date: 02/20/2019 14:37:57 Model Builder Date: 02/20/2019 18:08:04 Dictated By: TERRY LIVINGSTON MD, MA, FACP, FACC,
== END ==
LOC: CARD 11:56
PROVIDERS: ATTEND Nurse Practitioner Family
DX: R55 Syncope and collapse (principal); I25.10 Atherosclerotic heart disease of native coronary artery without angina pectoris
CPT/HCPCS: 78452; 93017

== ENCOUNTER 2020-08-07 10:11 | Outpatient (RCR) | payer MEDICARE ==
[~2020-08-07 10:11] MED LIST changes: +ACHYD1T PO; -CATHETER FLUSH 10 ML SYR IV PRN; -HYDR-3820 PO; -METO-370 PO; +METO50TA7 PO; -ONDANSETRON 4 MG/2 ML (SDV) Z0FRAN IVP ONE; -ONDANSETRON 4 MG/2 ML (SDV) Z0FRAN ONE; -REGADENOSON 0.4 MG/5 ML SYR (LEXISCAN) IV ONE
[2020-08-07 11:05] LABS: BASOPHILS # (AUTO) 0.1 10^3/uL (0.0-0.1); BASOPHILS % (AUTO) 0 % (0-10); EOSINOPHILS # (AUTO) 0.8 10^3/uL (0.0-0.3); EOSINOPHILS % (AUTO) 2 % (0-10); HEMATOCRIT 48 % (40-54); HEMOGLOBIN 15.6 g/dL (13.3-17.7); LYMPHOCYTES # (AUTO) 1.5 10^3/uL (1.0-4.0); LYMPHOCYTES % (AUTO) 4 % (12-44); MEAN CORPUSCULAR HEMOGLOBIN 28 pg (25-34); MEAN CORPUSCULAR HGB CONC 32 g/dL (32-36); MEAN CORPUSCULAR VOLUME 88 fL (80-99); MEAN PLATELET VOLUME 9.7 fL (9.0-12.2); MONOCYTES % (AUTO) 5 % (0-12); NEUTROPHILS # (AUTO) 34.1 10^3/uL (1.8-7.8); NEUTROPHILS % (AUTO) 87 % (42-75); PLATELET COUNT 395 10^3/uL (130-400)
[2020-08-07 11:06] LABS: WHITE BLOOD COUNT 39.4 10^3/uL (4.3-11.0)
[2020-08-07 11:37] LABS: ALANINE AMINOTRANSFERASE 15 U/L (0-55); ALBUMIN 3.4 GM/DL (3.2-4.5); ALKALINE PHOSPHATASE 111 U/L (40-136); BILIRUBIN,TOTAL 0.3 MG/DL (0.1-1.0); BUN/CREATININE RATIO 27; CALCIUM 9.7 MG/DL (8.5-10.1); CARBON DIOXIDE 25 MMOL/L (21-32); CHLORIDE 99 MMOL/L (98-107); CREATININE SERUM 0.75 MG/DL (0.60-1.30); GFR ESTIMATED > 60; GLUCOSE 110 MG/DL (70-105); POTASSIUM 4.7 MMOL/L (3.6-5.0); SODIUM 134 MMOL/L (135-145); TOTAL PROTEIN 6.8 GM/DL (6.4-8.2)
[2020-08-13] MEDS ORDERED: LISI-556 PO (14:11)
[2020-08-13] MEDS ORDERED: ACHD5005 PO (14:14)
[2020-08-21] MEDS ORDERED: HYDR-3817 PO (14:23)
[2020-09-01] MEDS ORDERED: MORP45CP4 PO (09:16)
== END 2020-11-05 | disposition home or self-care (01) ==
LOC: ONC 10:11
PROVIDERS: ATTEND Internal Medicine Hematology & Oncology
DX: C79.51 Secondary malignant neoplasm of bone (principal); M54.5 Low back pain; R53.1 Weakness; Z90.89 Acquired absence of other organs
CPT/HCPCS: 80053; 84153; 85025; G0463; 99214

== ENCOUNTER → 2020-08-08 | Outpatient (CLI) | payer MEDICARE ==
[~2020-08-08] MED LIST changes: +CATHETER FLUSH 10 ML SYR IV PRN; +HOLD METFORMIN - RECEIVED CONTRAST 20 ML VIAL IV SCH; +IOHEXOL 350 MG/ML 100 ML (OMNIPAQUE 350) VIAL IV ONE; +NS 100 ML (IVPB) BAG IV ONE
--- NOTE | 2020-08-08 13:37 | Diagnostic Imaging Report ---
PROCEDURE: CT chest with contrast, CT abdomen and pelvis with and without contrast. TECHNIQUE: Pre and post intravenous contrast axial imaging of the abdomen and pelvis and post contrast axial imaging of the chest were performed. Auto Exposure Controls were utilized during the CT exam to meet ALARA standards for radiation dose reduction. INDICATION: Abnormal MRI demonstrating a bone lesion. Patient also complains of low back pain. COMPARISON: Correlation is made with prior CT chest from 12/18/2017. No prior CT abdomen or pelvis studies available for comparison. FINDINGS: CT CHEST: No axillary lymphadenopathy is identified. Soft tissue fullness in the supraclavicular regions bilaterally is also noted, suggestive of supraclavicular lymphadenopathy. There is a partially necrotic right paratracheal lymph node measuring 2.9 x 1.7 cm. Additional smaller mediastinal lymph nodes are present as well. There is soft tissue fullness in the subcarinal region. Right hilum is unremarkable. There is a low-density mass in the left infrahilar location partially encircling the descending thoracic aorta. Mass-like density measures approximately 6.9 x 7.4 cm. No pericardial or pleural fluid is identified. Subpleural nodule in the left upper lobe posteriorly measures 5 mm. Tiny nodule in the right upper lobe, image 36, measures 3 mm. Left upper lobe nodule adjacent to the major fissure, image 67, measures 8 mm. A soft tissue nodule more anteriorly within the left upper lobe measures 18 mm, image 69. A nodule adjacent to the right major fissure inferiorly measures 7 mm. There are calcified pleural plaques bilaterally. CT ABDOMEN AND PELVIS: No discrete liver mass is identified. Gallbladder is unremarkable. No biliary ductal dilatation is seen. Pancreas and spleen are unremarkable. There are bilateral adrenal masses. Mass on the right is 2.1 cm and mass on the left is 2.3 cm. These were not present on prior CT chest study from 12/18/2017. Left kidney is unremarkable. There is somewhat ill-defined low-density mass in the anterior right kidney measuring 2.1 cm. This is indeterminate. Aorta is heavily calcified and ectatic but no aneurysm is seen. No definite central retroperitoneal or mesenteric lymphadenopathy is seen. Small and large bowel loops are normal in caliber. There is diverticulosis of the sigmoid but no evidence of acute diverticulitis. The bladder is unremarkable. Prostate is enlarged. No pelvic lymphadenopathy is seen. There is an expansile lytic and destructive lesion involving the left acetabulum. This involves the posterior column as well as the medial wall. There appears to be a pathologic fracture involving the left acetabulum. Additional lucencies within the left iliac bone are noted as well. There are several small lucencies in the right iliac bone. Features are consistent with osseous metastatic disease. IMPRESSION: 1. Irregular necrotic-appearing mass involving the left lower lobe, concerning for primary lung neoplasm. There are enlarged masses within the mediastinum, suggestive of metastatic disease. The mass is contiguous with the left hilum. There are also numerous pulmonary nodules bilaterally, suspicious for pulmonary metastatic disease. 2. Bilateral adrenal masses, suggestive of metastases. 3. Ill-defined low-density lesion in the right kidney, indeterminate. Complex renal mass cannot be entirely excluded and correlation with either MRI or ultrasound would be useful for better characterization. 4. Expansile lytic lesion involving the left acetabulum and left iliac bone with associated pathologic fracture, consistent with metastatic disease. Dictated by: Dictated on workstation # [id number]
--- NOTE | 2020-08-08 16:38 | Diagnostic Imaging Report ---
INDICATION: Low back pain. EXAMINATION: Patient was administered 24.2 mCi technetium 99m MDP intravenously and whole-body imaging was performed after a 3 hour delay. COMPARISON: No prior study is available for comparison. FINDINGS: There is normal uptake of activity by the axial and appendicular skeleton. There is uptake by both kidneys with excretion into the urinary bladder. There is abnormal uptake involving the left hemipelvis in the region of left iliac bone and acetabulum. This corresponds to the lytic lesion noted on CT of the same day. There is some horizontal oriented activity in upper lumbar lower thoracic spine that may represent acute compression fracture. This may correspond to the slight central compression of L1 on the CT study. There is also some uptake in the left aspect of the calvarium best seen on the posterior views. Lesion within the calvarium cannot be excluded. IMPRESSION: Abnormal uptake in left hemipelvis corresponding to metastatic lesion noted on CT. There is also a possible acute or subacute compression fracture deformity involving proximally L1 vertebral body. There is abnormal uptake in the left calvarium and a metastatic lesion at this location cannot be excluded. Dictated by: Dictated on workstation # [id number]
== END ==
LOC: CARD 12:00
PROVIDERS: ATTEND Internal Medicine Hematology & Oncology
DX: M89.9 Disorder of bone, unspecified (principal); R91.8 Other nonspecific abnormal finding of lung field
CPT/HCPCS: 71260; 74178; 78306; A9503

== ENCOUNTER 2020-08-13 12:02 | Outpatient (CLI) | payer MEDICARE ==
[2020-08-13] VITALS (9 sets, daily range): BP systolic 100–139; BP diastolic 77–94
[~2020-08-13] VITALS: Ht 175.3 cm; Wt 72.7 kg
[~2020-08-13 12:02] MED LIST changes: -CATHETER FLUSH 10 ML SYR IV PRN; -HOLD METFORMIN - RECEIVED CONTRAST 20 ML VIAL IV SCH; -IOHEXOL 350 MG/ML 100 ML (OMNIPAQUE 350) VIAL IV ONE; -NS 100 ML (IVPB) BAG IV ONE
[2020-08-13] MEDS ORDERED: NS IV 1000 ML 1,000 ML IV STA (12:31)
[2020-08-13] MEDS ORDERED: fentaNYL INJECTION 100 MCG/2 ML AMP IVP ONE (12:45)
[2020-08-13] MEDS ORDERED: LIDOCAINE 1% INJ 20 ML 20 ML VIAL INJ ONE (12:45)
[2020-08-13] MEDS ORDERED: MIDAZOLAM 2 MG/2 ML (VERSED) VIAL IVP ONE (12:45)
[2020-08-13] MEDS ORDERED: CATHETER FLUSH 10 ML SYR IV PRN (12:45)
[2020-08-13 13:08] LABS: HEMOGLOBIN 16.5 g/dL (13.3-17.7); MEAN PLATELET VOLUME 10.4 fL (9.0-12.2)
[2020-08-13 13:12] LABS: WHITE BLOOD COUNT 40.5 10^3/uL (4.3-11.0)
[2020-08-13] MEDS ORDERED: MIDAZOLAM 2 MG/2 ML (VERSED) VIAL ONE (13:19)
[2020-08-13] MEDS ORDERED: LIDOCAINE 1% INJ 20 ML 20 ML VIAL ONE (13:19)
[2020-08-13] MEDS ORDERED: fentaNYL INJECTION 100 MCG/2 ML AMP ONE (13:19)
[2020-08-13] MEDS ORDERED: NS IV 1000 ML 1,000 ML ONE (13:20)
[2020-08-13 13:23] LABS: INR 1.2 (0.8-1.4); PROTHROMBIN TIME PATIENT 15.2 SEC (12.2-14.7)
[2020-08-13] MEDS ORDERED: LISI-556 PO (14:11)
[2020-08-13] MEDS ORDERED: ACHD5005 PO (14:14)
--- NOTE | 2020-08-13 14:20 | NUR ---
TO AMB SURG FROM RADIOLOGY PER CART. ALERT, C/O CHRONIC LEFT HIP/LEG PAIN RATED 5. GAUZE/OPSITE DRESSING D/I TO LOW BACK PROCEDURE SITE LEFT OF SPINE. PO FLUIDS PROVIDED.
--- NOTE | 2020-08-13 14:45 | NUR ---
NO CHANGE IN PAIN OR SITE ASSESSMENTS. TAKING PO FLUIDS WITHOUT PROBLEM. LUNCH TRAY PROVIDED.
--- NOTE | 2020-08-13 15:12 | Pre-Op Note & Conscious Sedat ---
Pre-Operative Progress Note H&P Reviewed The H&P was reviewed, patient examined and no changes noted. Date H&P Reviewed: Aug 13, 2020 Time H&P Reviewed: 12:00 Pre-Op Diagnosis: Bone lesion Conscious Sedation Pre-Proced Time 12:00 ASA Score 2 For ASA 3 and 4: Consider anesthesia and medical clearance. Also, for patients with a history of failed moderate sedation consider anesthesia. Airway Lungs Heart ASA score ASA 1: a normal healthy patient ASA 2: a patient with a mild systemic disease (mid diabetes, controlled hypertension, obesity ASA 3: a patient with a severe systemic disease that limits activity (angina, COPD, prior Myocardial infarction) ASA 4: a patient with an incapacitating disease that is a constant threat to life (CHF, renal failure) ASA 5: a moribund patient not expected to survive 24 hrs. (ruptured aneurysm) ASA 6: a declared brain- patient whose organs are being harvested. For emergent operations, add the letter E after the classification Mallampati Classification Grade 2 Sedation Plan Analgesia, Amnesia, Plan communicated to team members, Discussed options with patient/fam, Discussed risks with patient/fam The patient is an appropriate candidate to undergo the planned procedure, sedation, and anesthesia. The patient immediately re-assessed prior to indication. EJRROD BROTHERS MD Aug 13, 2020 15:12
--- NOTE | 2020-08-13 15:29 | Diagnostic Imaging Report ---
INDICATION: Acetabulum biopsy. TECHNIQUE: All CT scans use one or more of the following dose optimizing techniques: automated exposure control, MA and/or KvP adjustment based on patient size and exam type or iterative reconstruction. DETAILS OF THE PROCEDURE: The patient was brought to the CT suite and placed on the table in the prone position. Axial imaging through the pelvis was performed to evaluate for an appropriate entry site. The procedure was performed utilizing conscious sedation with Radiology nursing and constant patient monitoring. The patient was given a total of 100 mcg of fentanyl intravenously and 1 mg of Versed intravenously. The total procedure time was 6 minutes. The low back was prepped and draped in the usual sterile fashion. A small amount of 1% lidocaine was utilized for local anesthesia. A bone biopsy needle was advanced and placed with its tip in the destructive lytic lesion in the left acetabulum. The tip was placed along the fractured posterior cortex. A core biopsy was obtained. The needle was then repositioned and a second core biopsy was obtained. A bone marrow drill was utilized. The needle was withdrawn and hemostasis was obtained using manual compression. The patient tolerated the procedure well and left the Department in stable condition. IMPRESSION: Successful CT-guided core biopsy of the lytic destructive lesion involving the left acetabulum utilizing conscious sedation. Pathology results are currently pending. Dictated by: Dictated on workstation # [id number]
--- NOTE | 2020-08-13 15:45 | NUR ---
NO CHANGE IN PAIN OR SITE ASSESSMENTS. ASSISTED TO DRESS FOR HOME, DISCHARGE INSTRUCTIONS PROVIDED, SL LOCK DC'D FROM LEFT UPPER ARM.
== END 2020-08-13 16:00 | disposition home or self-care (01) ==
LOC: SDC 12:02
PROVIDERS: ATTEND Internal Medicine Hematology & Oncology
DX: M89.9 Disorder of bone, unspecified (principal); R79.1 Abnormal coagulation profile
CPT/HCPCS: 36415; 77012; 85027; 85610; 85730; 99156

== ENCOUNTER 2020-08-19 12:32 | Inpatient (IN) | payer MEDICARE ==
[~2020-08-19] VITALS: Ht 172 cm; Wt 65.2 kg
[~2020-08-19 12:32] MED LIST changes: +ACHD5005 PO; +LISI-556 PO
--- NOTE | 2020-08-19 12:51 | ED GU-Female ---
General Chief Complaint: - Urinary Stated Complaint: HEMATURIA Nursing Triage Note: Pt sent to ED from home health w/ complaints of hematuria. Family member reports clots in urine as well. Pt has hx bladder cancer. Nursing Sepsis Screen: Possible Severe Sepsis Risk Source: patient Exam Limitations: no limitations History of Present Illness Date Seen by Provider: Aug 19, 2020 Time Seen by Provider: 12:50 Initial Comments To ER by family with reports of hematuria onset this morning. Patient recently underwent bone biopsy for suspected metastatic lesions which pathology reports is adenocarcinoma consistent with lung primary. Patient reports pain in both hips and would like some pain medication. Timing/Duration: constant Severity/Quality: moderate Location: other Radiation: none Activities at Onset: none Prior Genitourinary Problems: none Associated Symptoms: other (Hematuria) Allergies and Home Medications Allergies Coded Allergies: codeine (Verified Allergy, Unknown, 12/18/17) gabapentin (Verified Allergy, Unknown, 08/13/20) AGGITATION Home Medications Aspirin 81 Mg Tab.chew, 81 MG PO DAILY, (Reported) Clopidogrel Bisulfate 75 Mg Tablet, 1 TAB PO DAILY, (Reported) Hydrocodone/Acetaminophen 1 Each Tablet, 1 EACH PO TID PRN for PAIN-MODERATE (5- 7), (Reported) Lisinopril 5 Mg Tablet, 5 MG PO DAILY, (Reported) Patient Home Medication List Home Medication List Reviewed: Yes Review of Systems Review of Systems Constitutional: see HPI EENTM: see HPI Respiratory: no symptoms reported Cardiovascular: no symptoms reported Genitourinary: no symptoms reported Musculoskeletal: see HPI, back pain Skin: no symptoms reported Psychiatric/Neurological: No Symptoms Reported Endocrine: No Symptoms Reported Past Mgpumur-Ngtkit-[place] Hx Patient Social History Alcohol Use: Denies Use Recreational Drug Use: Yes Drug of Choice: MARIJUANA-daily Smoking Status: Former Smoker Recent Foreign Travel: No Contact w/Someone Who Travel: No Recent Infectious Disease Expo: No Recent Hopitalizations: No Immunizations Up To Date Tetanus Booster (TDap): Unknown Date of Pneumonia Vaccine: Aug 01, 2013 Date of Influenza Vaccine: Nov 20, 2017 Seasonal Allergies Seasonal Allergies: No Past Medical History Surgeries: Yes (r hand, neck, l wrist, hernia repair,) Coronary Stent, Neurological, Orthopedic, Tonsillectomy Respiratory: No COPD Cardiac: Yes (heart cath) Angina, Coronary Artery Disease, Hypertension Neurological: Yes Neuropathy Reproductive Disorders: No Genitourinary: Yes (HX BLADDER CA) Gastrointestinal: No Musculoskeletal: Yes Amputee, Degenerate Disk Disease, Arthritis Endocrine: No HEENT: No Cancer: Yes Bladder Psychosocial: No Integumentary: No Blood Disorders: No Adverse Reaction/Blood Tranf: No Family Medical History Other Conditions/Hx Patient is adopted so history is limited- father alcoholic, mother at 92yo of "natural causes" Physical Exam Vital Signs Vital Signs - First Documented 08/19/20 12:36 Temp 36.0 Pulse 101 Resp 24 B/P (MAP) 126/108 (114) Pulse Ox 98 O2 Delivery Room Air Capillary Refill : Less Than 3 Seconds Height, Weight, BMI Height: 5'9.00" Weight: 171lbs. 0.0oz. 77.121281vi; 22.00 BMI Method:Stated General Appearance: WD/WN, no apparent distress Neck: non-tender, full range of motion Respiratory: no respiratory distress, no accessory muscle use Gastrointestinal: normal bowel sounds, non tender Neurologic/Psychiatric: alert, normal mood/affect, oriented x 3 Skin: normal color, warm/dry Progress/Results/Core Measures Suspected Sepsis Recent Fever Within 48 Hours: No Infection Criteria Present: Suspected New Infection New/Unexplained Altered Menta: No Sepsis Screen: Possible Severe Sepsis Risk SIRS Temperature: Pulse: 101 Respiratory Rate: 24 Laboratory Tests 08/19/20 13:25: White Blood Count 41.5*H Blood Pressure 126 /108 Mean: 114 Laboratory Tests 08/19/20 13:25: Creatinine 1.14, Platelet Count 237, Total Bilirubin 1.2H 08/19/20 13:39: INR Comment 1.3 Results/Orders Lab Results Laboratory Tests Test 08/19/20 13:25 08/19/20 13:39 08/19/20 15:00 Range/Units White Blood Count 41.5 *H 4.3-11.0 10^3/uL Red Blood Count 5.26 4.30-5.52 10^6/uL Hemoglobin 15.0 13.3-17.7 g/dL Hematocrit 46 40-54 % Mean Corpuscular Volume 87 80-99 fL Mean Corpuscular Hemoglobin 29 25-34 pg Mean Corpuscular Hemoglobin Concent 33 32-36 g/dL Red Cell Distribution Width 15.8 H 10.0-14.5 % Platelet Count 237 130-400 10^3/uL Mean Platelet Volume 11.0 9.0-12.2 fL Immature Granulocyte % (Auto) 3 % Neutrophils (%) (Auto) 84 H 42-75 % Lymphocytes (%) (Auto) 5 L 12-44 % Monocytes (%) (Auto) 5 0-12 % Eosinophils (%) (Auto) 3 0-10 % Basophils (%) (Auto) 0 0-10 % Neutrophils # (Auto) 35.0 H 1.8-7.8 10^3/uL Lymphocytes # (Auto) 1.9 1.0-4.0 10^3/uL Monocytes # (Auto) 2.1 H 0.0-1.0 10^3/uL Eosinophils # (Auto) 1.3 H 0.0-0.3 10^3/uL Basophils # (Auto) 0.1 0.0-0.1 10^3/uL Immature Granulocyte # (Auto) 1.2 H 0.0-0.1 10^3/uL Neutrophils % (Manual) 73 % Lymphocytes % (Manual) 6 % Monocytes % (Manual) 1 % Eosinophils % (Manual) 2 % Basophils % (Manual) 0 % Band Neutrophils 18 % Basophilic Stippling Anisocytosis SLIGHT Sodium Level 134 L 135-145 MMOL/L Potassium Level 4.7 3.6-5.0 MMOL/L Chloride Level 96 L 98-107 MMOL/L Carbon Dioxide Level 25 21-32 MMOL/L Anion Gap 13 5-14 MMOL/L Blood Urea Nitrogen 81 H 7-18 MG/DL Creatinine 1.14 0.60-1.30 MG/DL Estimat Glomerular Filtration Rate > 60 BUN/Creatinine Ratio 71 Glucose Level 122 H 70-105 MG/DL Calcium Level 10.4 H 8.5-10.1 MG/DL Corrected Calcium 11.2 H 8.5-10.1 MG/DL Total Bilirubin 1.2 H 0.1-1.0 MG/DL Aspartate Amino Transf (AST/SGOT) 35 H 5-34 U/L Alanine Aminotransferase (ALT/SGPT) 28 0-55 U/L Alkaline Phosphatase 113 40-136 U/L Total Protein 5.9 L 6.4-8.2 GM/DL Albumin 3.0 L 3.2-4.5 GM/DL Prothrombin Time 16.5 H 12.2-14.7 SEC INR Comment 1.3 0.8-1.4 Activated Partial Thromboplast Time 30 24-35 SEC My Orders Orders - VISHAL FUNG APRN Chest 1 View, Ap/Pa Only (08/19/20 12:57) Piperacillin Sodium/Tazobactam (Zosyn Vi (08/19/20 15:30) Blood Culture (08/19/20 15:21) Psa Screen (08/19/20 15:29) Medications Given in ED Current Medications Medications Dose Ordered Sig/William Route Start Time Stop Time Status Last Admin Dose Admin Piperacillin Sod/ Tazobactam Sod 4.5 gm/Sodium Chloride 100 ml @ 200 mls/hr ONCE ONCE IV 08/19/20 15:30 08/19/20 15:59 08/19/20 15:53 200 MLS/HR Vital Signs/I&O 08/19/20 12:36 Temp 36.0 Pulse 101 Resp 24 B/P (MAP) 126/108 (114) Pulse Ox 98 O2 Delivery Room Air Capillary Refill : Less Than 3 Seconds Blood Pressure Mean: 114 Departure Communication (Admissions) Time/Spoke to Admitting Phy: 15:[address] Handy, we'll admit to her consult Dr. Tamanna Mayberry. Davies catheter has been inserted draining bloody urine without clots. No lower abdominal pain to suggest urinary obstruction or retention 1358- Impression Primary Impression: Leukocytosis Additional Impressions: Lung cancer metastatic to bone Hematuria Disposition: ADMITTED INPATIENT Condition: Stable Admissions Decision to Admit Reason: Admit from ER (General) Decision to Admit/Date: Aug 19, 2020 Time/Decision to Admit Time: 15:42 Departure-Patient Inst. Referrals: KAYODE KENNEDY (PCP/Family) Primary Care Physician VISHAL FUNG APRN Aug 19, 2020 12:50
[2020-08-19 13:33] LABS: BASOPHILS # (AUTO) 0.1 10^3/uL (0.0-0.1); BASOPHILS % (AUTO) 0 % (0-10); EOSINOPHILS # (AUTO) 1.3 10^3/uL (0.0-0.3); EOSINOPHILS % (AUTO) 3 % (0-10); HEMATOCRIT 46 % (40-54); LYMPHOCYTES # (AUTO) 1.9 10^3/uL (1.0-4.0); LYMPHOCYTES % (AUTO) 5 % (12-44); MEAN CORPUSCULAR HEMOGLOBIN 29 pg (25-34); MEAN CORPUSCULAR HGB CONC 33 g/dL (32-36); MEAN CORPUSCULAR VOLUME 87 fL (80-99); MONOCYTES # (AUTO) 2.1 10^3/uL (0.0-1.0); MONOCYTES % (AUTO) 5 % (0-12); NEUTROPHILS % (AUTO) 84 % (42-75); PLATELET COUNT 237 10^3/uL (130-400)
[2020-08-19 13:43] LABS: WHITE BLOOD COUNT 41.5 10^3/uL (4.3-11.0)
[2020-08-19 13:45] LABS: CHLORIDE 96 MMOL/L (98-107); POTASSIUM 4.7 MMOL/L (3.6-5.0); SODIUM 134 MMOL/L (135-145)
--- NOTE | 2020-08-19 13:45 | Diagnostic Imaging Report ---
INDICATION: History of bladder cancer and lung cancer, with hematuria. EXAMINATION: Frontal chest obtained at 01:24 p.m. and compared to 12/19/2017. FINDINGS: Heart is mildly prominent. Aorta is tortuous. There is a new left infrahilar density which may represent mass or infiltrate, this was not seen on the previous chest x-ray but was present on chest CT of 08/08/2020. There is some minimal infiltrate or atelectasis in the left lateral base. There is no pneumothorax or gross pleural fluid. IMPRESSION: Left infrahilar density is present which may represent combination of mass and/or infiltrate. There is some minimal infiltrate in the left lung base laterally. There is no pneumothorax or pleural fluid. Dictated by: Dictated on workstation # [id number]
[2020-08-19 13:46] LABS: CALCIUM 10.4 MG/DL (8.5-10.1)
[2020-08-19 13:47] LABS: GLUCOSE 122 MG/DL (70-105)
[2020-08-19 13:48] LABS: TOTAL PROTEIN 5.9 GM/DL (6.4-8.2)
[2020-08-19 13:49] LABS: CARBON DIOXIDE 25 MMOL/L (21-32)
[2020-08-19 13:50] LABS: BILIRUBIN,TOTAL 1.2 MG/DL (0.1-1.0)
[2020-08-19 13:51] LABS: ALKALINE PHOSPHATASE 113 U/L (40-136); CREATININE SERUM 1.14 MG/DL (0.60-1.30); GFR ESTIMATED > 60
[2020-08-19 13:52] LABS: BUN/CREATININE RATIO 71
[2020-08-19 13:54] LABS: ALANINE AMINOTRANSFERASE 28 U/L (0-55)
[2020-08-19 14:00] LABS: ANISOCYTOSIS SLIGHT; BAND NEUTROPHILS 18 %; BASOPHILS % (MANUAL) 0 %; EOSINOPHILS % (MANUAL) 2 %; LYMPHOCYTES % (MANUAL) 6 %; MONOCYTES % (MANUAL) 1 %; NEUTROPHILS % (MANUAL) 73 %
[2020-08-19 14:01] LABS: INR 1.3 (0.8-1.4); PROTHROMBIN TIME PATIENT 16.5 SEC (12.2-14.7)
[2020-08-19] MEDS ORDERED: PIPERACILLIN SODIUM/TAZOBACTAM 4.5 GM in NS (IVPB) 100 ML IV ONE (15:30)
[2020-08-19 15:58] LABS: CLARITY,URINE BLOODY; COLOR,URINE RED; RBC,URINE TNTC /HPF
[2020-08-19 15:59] LABS: BACTERIA,URINE MODERATE /HPF; WBC,URINE 25-50 /HPF
--- NOTE | 2020-08-19 16:13 | NUR ---
Called son Genaro to inform him of the need to be admitted, I left a message.
[2020-08-19] MEDS ORDERED: fentaNYL INJECTION 100 MCG/2 ML AMP IVP PRN (16:15)
--- NOTE | 2020-08-19 16:45 | NUR ---
MARY SOUZA admitted to room 409-1, with an admitting diagnosis of hematuria/leukocytosis, on 08/19/20 from ED, accompanied by staff.MARY SOUZA introduced to surroundings, call light, bed controls, phone, TV, temperature control, lights, meal times, smoking policy, visitor policy, side rail policy, bathrooms and showers. Patient Rights given to patient in the handbook. MARY SOUZA verbalizes understanding that [facility] is not responsible for the loss or damage to any personal effects or valuables that are kept in the patients posession during their hospitalization. MARY SOUZA verbalizes understanding of Interdisciplinary Patient Education. Patient and/or family were informed about the Rapid Response Team and its purpose.
[2020-08-19 16:53] VITALS: BP 114/77
[2020-08-19] MEDS ORDERED: CATHETER FLUSH 10 ML SYR IV PRN (17:00)
[2020-08-19] MEDS: LACTATED RINGERS 1,000 ML IV SCH (17:14)
[2020-08-19 19:18] VITALS: BP 128/72
[2020-08-19 21:11] VITALS: BP 126/108
--- NOTE | 2020-08-19 21:23 | NUR ---
DR. PENNINGTON NOTIFIED OF PATIENT RATING PAIN 05/26. NEW ORDER RECEIVED FOR FENTANYL 25 MCG Q4 IV PRN. WILL CONTINUE TO MONITOR.
--- NOTE | 2020-08-19 21:23 | NUR ---
LESLI BID AND PRN. IS AND AEROBIKKA TID. INITIATE 02 2-4L TO KEEP SATS GREATER THAN 90%. RT TO REASSESS OR REEVALUATE IN 72 HOURS OR NEEDED. Addendum: 08/19/20 at 2124 by LIZ HOPKINS RT Amended: Links added.
[2020-08-19] MEDS ORDERED: RT-ALBUTEROL/IPRATROPIUM 3 ML (DUONEB) VIAL INH PRN (21:30)
[2020-08-19] MEDS: fentaNYL INJECTION 100 MCG/2 ML AMP IVP PRN (21:58)
[2020-08-19] MEDS: PIPERACILLIN/TAZO 4.5 GM/NS 100 ML IV SCH ×2 (21:58)
[2020-08-19 23:31] VITALS: BP 110/71
[2020-08-20] MEDS: fentaNYL INJECTION 100 MCG/2 ML AMP IVP PRN ×2 (02:18→08:34)
[2020-08-20 04:40] VITALS: BP 101/70
[2020-08-20 05:16] LABS: BASOPHILS % (AUTO) 0 % (0-10); EOSINOPHILS # (AUTO) 0.5 10^3/uL (0.0-0.3); EOSINOPHILS % (AUTO) 1 % (0-10); HEMATOCRIT 44 % (40-54); HEMOGLOBIN 14.4 g/dL (13.3-17.7); LYMPHOCYTES # (AUTO) 1.5 10^3/uL (1.0-4.0); LYMPHOCYTES % (AUTO) 4 % (12-44); MEAN CORPUSCULAR HEMOGLOBIN 29 pg (25-34); MEAN CORPUSCULAR HGB CONC 33 g/dL (32-36); MEAN CORPUSCULAR VOLUME 87 fL (80-99); MEAN PLATELET VOLUME 11.2 fL (9.0-12.2); MONOCYTES # (AUTO) 2.1 10^3/uL (0.0-1.0); MONOCYTES % (AUTO) 5 % (0-12); NEUTROPHILS # (AUTO) 35.6 10^3/uL (1.8-7.8); NEUTROPHILS % (AUTO) 87 % (42-75); PLATELET COUNT 211 10^3/uL (130-400)
[2020-08-20 05:21] LABS: WHITE BLOOD COUNT 41.1 10^3/uL (4.3-11.0)
--- NOTE | 2020-08-20 05:22 | Pulmonary Consultation ---
History of Present Illness History of Present Illness Date Seen by Provider: Aug 20, 2020 Time Seen by Provider: 05:17 Date of Admission History of Present Illness 80yo male with hx of metastatic pulmonary adenocarinoma s/p bone bx presented to ED secondary to hematuria. He was found to have a leukocytosis of 41. CXR shows left hilar infiltrate vs mass. He was started on Zosyn and admitted to 4th floor. Allergies and Home Medications Allergies Coded Allergies: codeine (Verified Allergy, Unknown, 12/18/17) gabapentin (Verified Allergy, Unknown, 08/13/20) AGGITATION Home Medications Aspirin 81 Mg Tab.chew, 81 MG PO DAILY, (Reported) Clopidogrel Bisulfate 75 Mg Tablet, 1 TAB PO DAILY, (Reported) Hydrocodone/Acetaminophen 1 Each Tablet, 1 EACH PO TID PRN for PAIN-MODERATE (5- 7), (Reported) Lisinopril 5 Mg Tablet, 5 MG PO DAILY, (Reported) Past Izrbvlr-Codnva-Xswecc Hx Patient Social History Alcohol Use: Denies Use Recreational Drug Use: Yes Drug of Choice: MARIJUANA-daily Smoking Status: Former Smoker Recent Foreign Travel: No Contact w/Someone Who Travel: No Recent Infectious Disease Expo: No Recent Hopitalizations: No Immunizations Up To Date Tetanus Booster (TDap): Unknown Date of Pneumonia Vaccine: Aug 01, 2013 Date of Influenza Vaccine: Nov 20, 2017 Seasonal Allergies Seasonal Allergies: No Past Medical History Surgeries: Yes (r hand, neck, l wrist, hernia repair,) Coronary Stent, Neurological, Orthopedic, Tonsillectomy Respiratory: No COPD Cardiac: Yes (heart cath) Angina, Coronary Artery Disease, Hypertension Neurological: Yes Neuropathy Reproductive Disorders: No Genitourinary: Yes (HX BLADDER CA) Gastrointestinal: No Musculoskeletal: Yes Amputee, Degenerate Disk Disease, Arthritis Endocrine: No HEENT: No Cancer: Yes Bladder Psychosocial: No Integumentary: No Blood Disorders: No Adverse Reaction/Blood Tranf: No Family Medical History Other Conditions/Hx Patient is adopted so history is limited- father alcoholic, mother at 92yo of "natural causes" Sepsis Event Evaluation Height, Weight, BMI Height: 5'9.00" Weight: 171lbs. 0.0oz. 77.806679xw; 22.03 BMI Method:Stated Exam Exam Vital Signs Date Time Temp Pulse Resp B/P (MAP) Pulse Ox O2 Delivery O2 Flow Rate FiO2 11/4/20 04:40 36.5 98 18 101/70 (80) 95 Room Air 08/19/20 23:31 36.6 104 18 110/71 (84) 97 Room Air 08/19/20 21:11 36.0 101 98 08/19/20 20:00 Room Air 08/19/20 19:18 36.6 84 18 128/72 (90) 95 Room Air 08/19/20 17:51 96 Room Air 08/19/20 16:53 36.3 110 22 114/77 96 Room Air 08/19/20 16:21 36.0 08/19/20 16:20 36.1 110 20 128/88 (114) 96 Room Air 08/19/20 12:36 36.0 101 24 126/108 (114) 98 Room Air I & O 08/20/20 07:00 Intake Total 420 ml Output Total 525 ml Balance -105 ml Height & Weight Height: 5'9.00" Weight: 171lbs. 0.0oz. 77.745300wj; 22.03 BMI Method:Stated Capillary Refill: Less Than 3 Seconds Gastrointestinal: normal bowel sounds, non tender Results Lab Laboratory Tests 08/19/20 13:25 Assessment/Plan Assessment/Plan Pneumonia with sepsis -Labs this AM pending -Zosyn -Vasquez cultures Metabolic lactic acidosis- improved Metastatic pulmonary adenocarcinoma s/p bone bx -Oncology consulted Hematuria with elevated PSA -Dr. Mayberry consulted AVE HOPKINS DO Aug 20, 2020 05:22
[2020-08-20] MEDS: PIPERACILLIN/TAZO 4.5 GM/NS 100 ML IV SCH ×6 (05:23→21:00)
[2020-08-20 05:37] LABS: ALBUMIN 2.7 GM/DL (3.2-4.5); POTASSIUM 4.2 MMOL/L (3.6-5.0)
[2020-08-20 05:38] LABS: CALCIUM 9.7 MG/DL (8.5-10.1)
[2020-08-20 05:39] LABS: TOTAL PROTEIN 5.5 GM/DL (6.4-8.2)
[2020-08-20 05:41] LABS: BILIRUBIN,TOTAL 1.5 MG/DL (0.1-1.0)
[2020-08-20 05:43] LABS: CREATININE SERUM 1.17 MG/DL (0.60-1.30)
--- NOTE | 2020-08-20 05:59 | NUR ---
DR. PENNINGTON NOTIFIED OF CRITICAL LAB VALUE WBC 41.1.
[2020-08-20] MEDS: RT-ALBUTEROL/IPRATROPIUM 3 ML (DUONEB) VIAL INH SCH ×2 (06:26→20:21)
[2020-08-20 08:35] VITALS: BP 96/65
[2020-08-20] MEDS ORDERED: HYDROcodone/APAP 5 MG/325 MG (LORTAB) TAB ONE (08:55)
--- NOTE | 2020-08-20 08:55 | NUR ---
Dr. Verduzco in room with patient and palliative care nurse. Dr. Verduzco requested a 5/325 hydro at this time for the patients pain. Order placed and verified with Medication administered at this time.
[2020-08-20] MEDS: HYDROcodone/APAP 5 MG/325 MG (LORTAB) TAB PO PRN ×3 (09:02→19:41)
--- NOTE | 2020-08-20 09:07 | NUR ---
Messaged Dr. Verduzco asking what to do about IV site that is continuously occluding with movement. Dr. Verduzco requested to DC fluids at this time. IV fluids DCd. Zosyn pumping at this time.
[2020-08-20] MEDS: LACTATED RINGERS 1,000 ML IV SCH ×2 (09:09→09:10)
--- NOTE | 2020-08-20 09:23 | History & Physical-Hospitalist ---
History of Present Illness HPI/Chief Complaint patient is a 80-year-old male with recently diagnosed metastatic lung cancer who presented to the emergency department due to hematuria. This started yesterday. He was recently diagnosed with metastatic adenocarcinoma. His only complaint at this time is that he has back and hip pain. Fentanyl has not helped it and he is request hydrocodone. His son called the PCPs office who called here and stated that his dad's primary goal is to at home and they are looking in to [facility]. Source: patient Date Seen 08/20/20 Time Seen by a Provider: 09:20 Attending Physician Quique Verduzco MD PCP Olive Valenzuela Referring Physician Date of Admission Aug 19, 2020 at 16:24 Home Medications & Allergies Home Medications Reviewed patient Home Medication Reconciliation performed by pharmacy medication reconciliations certified veterinary technician and/or nursing. Patients Allergies have been reviewed. Allergies Allergies Coded Allergies codeine (Verified Allergy, Unknown, pt has received Lortab & Morphine w/o issue, 08/20/20) gabapentin (Verified Allergy, Unknown, 08/13/20) AGGITATION Past Malzold-Nopdut-Qlhyrg Hx Past Med/Social Hx: Reviewed Nursing Past Med/Soc Hx Patient Social History Alcohol Use: Denies Use Recreational Drug Use: Yes Drug of Choice: MARIJUANA-daily Smoking Status: Former Smoker Recent Foreign Travel: No Contact w/other who traveled: No Recent Hopitalizations: No Recent Infectious Disease Expo: No Immunizations Up To Date Tetanus Booster (TDap): Unknown Date of Pneumonia Vaccine: Aug 01, 2013 Date of Influenza Vaccine: Nov 20, 2017 Seasonal Allergies Seasonal Allergies: No Past Medical History Surgeries: Coronary Stent, Neurological, Orthopedic, Tonsillectomy Cardiac: Angina, Coronary Artery Disease, Hypertension Neurological: Neuropathy Reproductive: No Musculoskeletal: Amputee, Degenerate Disk Disease, Arthritis Cancer: Bladder History of Blood Disorders: No Adverse Reaction to Blood Champagne: No Family History Reviewed Nursing Family Hx Other Conditions/Hx Patient is adopted so history is limited- father alcoholic, mother at 92yo of "natural causes" Review of Systems Constitutional: No chills, No fever EENTM: no symptoms reported Respiratory: no symptoms reported Cardiovascular: no symptoms reported Gastrointestinal: loss of appetite; No nausea Genitourinary: No dysuria; hematuria Musculoskeletal: back pain, joint pain Skin: no symptoms reported Psychiatric/Neurological: No Symptoms Reported Physical Exam Physical Exam Vital Signs Vital Signs - First Documented 08/19/20 12:36 Temp 36.0 Pulse 101 Resp 24 B/P (MAP) 126/108 (114) Pulse Ox 98 O2 Delivery Room Air Capillary Refill : Less Than 3 Seconds Height, Weight, BMI Height: 5'9.00" Weight: 171lbs. 0.0oz. 77.797867lx; 22.03 BMI Method:Stated General Appearance: No Apparent Distress, Chronically ill, Thin HEENT: PERRL/EOMI, Moist Mucous Membranes Neck: Normal Inspection, Supple Respiratory: Lungs Clear, No Accessory Muscle Use, No Respiratory Distress Cardiovascular: Regular Rate, Rhythm, Normal Peripheral Pulses, Systolic Murmur Gastrointestinal: Normal Bowel Sounds, Non Tender, Soft Extremity: Normal Capillary Refill, No Calf Tenderness, No Pedal Edema Neurologic/Psychiatric: Alert, Oriented x3, Normal Mood/Affect Results Results/Procedures Labs Laboratory Tests 08/19/20 13:25 08/20/20 04:50 Patient resulted labs reviewed. Imaging: Reviewed Imaging Report Imaging [facility], [place] NAME: MARY SOUZA [facility] REC#: [id number] PT STATUS: REG ER : 1940 PHYSICIAN: VISHAL FUNG APRN ADMIT DATE: 08/19/20/ER Signed Date of Exam:08/19/20 CHEST 1 VIEW, AP/PA ONLY INDICATION: History of bladder cancer and lung cancer, with hematuria. EXAMINATION: Frontal chest obtained at 01:24 p.m. and compared to 12/19/2017. FINDINGS: Heart is mildly prominent. Aorta is tortuous. There is a new left infrahilar density which may represent mass or infiltrate, this was not seen on the previous chest x-ray but was present on chest CT of 08/08/2020. There is some minimal infiltrate or atelectasis in the left lateral base. There is no pneumothorax or gross pleural fluid. IMPRESSION: Left infrahilar density is present which may represent combination of mass and/or infiltrate. There is some minimal infiltrate in the left lung base laterally. There is no pneumothorax or pleural fluid. Dictated by: Dictated on workstation # [id number] Dict: 08/19/20 1341 Trans: 08/19/[address] [facility] [id number] Interpreted by: YANDY MARLEY MD Electronically signed by: YANDY MARLEY MD 08/19/20 1452 Assessment/Plan Admission Diagnosis Metatstatic adenocarcinoma Admission Status: Inpatient Order (span 2 midnights) Reason for Inpatient Admission: see below Assessment and Plan Metatstatic adenocarcinoma, lung primary with bony mets Dr Gil consulted, appreciate recs Continue pain regimen Discussed son's goals with Dr Gil Plan is to attempt palliative radiation Severe Sepsis from CAP- present on admission Profound leukocytosis ?sepsis from pneumonia Continue zosyn Pulm consulted, appreciate recs Hematuria Catheter in place Dr Mayberry consulted, appreciate recs Hold plavix for now Hypercalcemia Likely due to cancer Improved this AM Trend DVT ppx: SCDs Clinical Quality Measures DVT/VTE Risk/Contraindication: Risk Factor Score Per Nursin RFS Level Per Nursing on Admit: 2=Moderate QUIQUE VERDUZCO MD Aug 20, 2020 09:23
[2020-08-20] MEDS ORDERED: morphine INJ 10 MG/ML 1ML (SYR OR VIAL) IVP PRN (09:45)
--- NOTE | 2020-08-20 10:13 | NUR ---
Staff took patient down for radiation treatment at this time.
--- NOTE | 2020-08-20 11:46 | CONSULTATION REPORT ---
DATE OF SERVICE: 08/20/2020 ATTENDING PHYSICIAN: Dr. Karen Verduzco. 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 The patient also had a biopsy of his prostate in the past that was negative. He never came back for followup despite calling him. He has a history of BPH, hypogonadism, erectile dysfunction, high blood pressure, coronary artery disease, peripheral vascular disease, osteoarthritis. Surgery casas, the above-mentioned TURBT, right fem-pop, coronary stent, tonsillectomy, adenoidectomy, hand surgery, right knee surgery. His last cystoscopy was negative on 07/13/2016. Now, he is being admitted with gross hematuria. He has metastatic lung cancer to the bone confirmed by biopsy. He is allergic to CODEINE and GABAPENTIN. His medicines were reviewed. I told the ER to hold the aspirin and the Plavix and was started on Zosyn. Catheter was inserted by the ER staff not a 3-way, but it is draining and no clots. FAMILY HISTORY: Noncontributory, being adopted. PHYSICAL EXAMINATION: VITAL SIGNS: Per chart. GENERAL: Cachectic and chronically ill. HEAD: Normocephalic. NECK: Supple. CHEST: Clear. HEART: Regular rate and rhythm. ABDOMEN: Soft. NEUROLOGIC: Grossly intact. Oriented x3. EXTERNAL GENITALIA: Adequate male configuration. Chest x-ray showed some infiltrate in the left lung and the left mass in the lung . Today, his urine is still bloody, but the catheter is draining well and no clots. IMPRESSION: 1. Gross hematuria with history of CA of the bladder. 2. 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 3. Sepsis, question pneumonia. PLAN: Taking into consideration the general condition and advanced metastatic cancer of the lung, we will wait until the urine clears up, so we can perform flexible cystoscopy at bedside under local and then we will discuss the management at that time. I also at the emergency room ordered a PSA and see what it shows. I did not do a rectal exam; the patient was having his meal. Thank you for letting me participate in the care of this patient. We will follow with you. Job ID: [id number] DocumentID: [id number] Dictated Date: 08/20/2020 10:22:59 Director Clinical Operations Date: 08/20/2020 11:46:17 Dictated By: CHUCHO SANTANA MD
--- NOTE | 2020-08-20 11:49 | NUR ---
Dietary requested to put the patient on a Dys II diet per [facility] request
[2020-08-20 12:00] VITALS: BP 97/64
--- NOTE | 2020-08-20 13:14 | NUR ---
"RD ASSESSMENT PMHx: CA(bladder, metastatic lung); CAD; HTN PT INTERACTION: Pt was awake and pleasant during nutrition assessment. Pt states current appetite is not good, and has been this way for the last 2-3w. Note avg PO intake 0% x2meal, per chart review. Note pt has supplement order for Ensure Plus with meals TID, per chart review. Pt states following a regular diet at home, and has no issues with chewing/swallowing food. Note pt has no teeth, per visual assessment. Pt states no recent issues with nausea, vomiting, constipation, or diarrhea. Note last BM was 08/19, and pt not currently on bowel regimen per chart review. Pt states recent 20# wt loss, but is unsure of timeframe. Note unable to determine recent wt hx, per chart review. ABNORMAL NUTRITION-RELATED LAB VALUES LOW: Pro 5.5; alb 2.7; HIGH: BUN 74; glu 115; bili 1.5 Est. kcal needs: 1027-3808 kcal | 25-30 kcal/kg Est. Pro needs: 65-78 g Pro | 1.0-1.2 g Pro/kg PES STATEMENT: Inadequate oral intake (NI-2.1) related to loss of appetite as evidenced by pt interview and avg PO intake 0% x2meal. INTERVENTION: Recommend changing diet order from Regular to DYS2 Mechanically Altered diet, as pt has no teeth. This should improve PO intake. Switch current supplementation order from Ensure Plus with meals TID to Ensure Enlive (vary) with meals TID. Enlive provides 350 kcal and 20 g Pro per serving. Encouraged pt to eat when able. Will continue to follow and reassess as pt needs, intake, and status change. Talon Ozuna, MS RD LD"
--- NOTE | 2020-08-20 14:49 | Progress Note ---
Progress Note Assessment/Plan Date Seen by Provider: Aug 20, 2020 Time Seen by Provider: 11:15 Events since last exam N/A Assessment/Plan 1)80 y/o white male with metastatic lung cancer pathologically diagnosed on left acetabulum bone biopsy 08/13/20 (metastatic poorly differentiated adenocarcinoma consistent with lung primary).- 2)Established care with med onc Yosi Gil M.D. on 08/07/20. 3)Prescribed Fentanyl patch ( dose?) every 72 hrs topcial and Hamel/APAP 7.5/325 mg QID prn for pain 4)08/19/20 Presented to [facility] ED with hematuria along with back and hip pain. 5)A rad onc consult was requested for evaluation and consideration of palliative xrt; thus, my visit with the patient today. -radiographic studies reviewed *Bone scan notes abnormal uptake in the left hemipelvis (involvement of left ischium) -patient visited with; reporting pain left anterior hip/pelvis with no radicular component -pain corresponds to radiographic findings Plan: -offered 30 Gy / 10 fxs utilizing 3D conformal planning to the left pelvis for palliation of his pain -acute toxicities, fpc complications, hoped for benefits and logistics explained to the patient -a treatment planning ct simulation to be performed today -we will initiate his palliative xrt in the near future Vitals Last set of Vitals Signs Vital Signs Date Time Temp Pulse Resp B/P (MAP) Pulse Ox O2 Delivery O2 Flow Rate FiO2 08/20/20 12:00 36.0 90 20 97/64 (75) 96 Room Air I&O I&O Intake and Output 08/20/20 00:00 Intake Total 300 ml Output Total 525 ml Balance -225 ml Intake Oral 300 ml Output Urine Total 525 ml # Bowel Movements 1 Daily Weight Change Unsure No Labs Laboratory Tests 08/19/20 15:00: Urine Color REDH, Urine Clarity BLOODYH, Urine pH N/A, Urine Specific [facility] N/ A, Urine Protein NA, Urine Glucose (UA) NA, Urine Ketones NA, Urine Nitrite NA, Urine Bilirubin NA, Urine Urobilinogen NA, Urine Leukocyte Esterase NA, Urine RBC (Auto) NA, Urine RBC TNTCH, Urine WBC 25-50H, Urine Crystals NONE, Urine Bacteria MODERATEH, Urine Casts NONE, Urine Mucus NEGATIVE, Urine Culture Indicated YES 08/19/20 15:45: Lactic Acid Level 2.34*H 08/19/20 17:50: Lactic Acid Level 1.97 08/20/20 04:50: White Blood Count 41.1*H, Red Blood Count 5.05, Hemoglobin 14.4, Hematocrit 44, Mean Corpuscular Volume 87, Mean Corpuscular Hemoglobin 29, Mean Corpuscular Hemoglobin Concent 33, Red Cell Distribution Width 15.9H, Platelet Count 211, Mean Platelet Volume 11.2, Immature Granulocyte % (Auto) 3, Neutrophils (%) (Auto) 87H, Lymphocytes (%) (Auto) 4L, Monocytes (%) (Auto) 5, Eosinophils (%) (Auto) 1, Basophils (%) (Auto) 0, Neutrophils # (Auto) 35.6H, Lymphocytes # (Auto) 1.5, Monocytes # (Auto) 2.1H, Eosinophils # (Auto) 0.5H, Basophils # (Auto) 0.0, Immature Granulocyte # (Auto) 1.3H, Sodium Level 135, Potassium Level 4.2, Chloride Level 98, Carbon Dioxide Level 23, Anion Gap 14, Blood Urea Nitrogen 74H, Creatinine 1.17, Estimat Glomerular Filtration Rate 60, BUN/Creatinine Ratio 63, Glucose Level 115H, Calcium Level 9.7, Corrected Calcium 10.7H, Total Bilirubin 1.5H, Aspartate Amino Transf (AST/SGOT) 33, Alanine Aminotransferase (ALT/SGPT) 26, Alkaline Phosphatase 112, Total Protein 5.5L, Albumin 2.7L Microbiology 08/19/20 Urine Culture - Final, Complete NO GROWTH Focused Exam Lactate Level 08/19/20 15:45: Lactic Acid Level 2.34*H 08/19/20 17:50: Lactic Acid Level 1.97 Respiratory: No Respiratory Distress Skin: warm/dry Clinical Quality Measures DVT/VTE Risk/Contraindication: Risk Factor Score Per Nursin RFS Level Per Nursing on Admit: 2=Moderate NETTA WHEELER MD Aug 20, 2020 14:49
--- NOTE | 2020-08-20 14:53 | NUR ---
CM/SS: Telephone call from Angelita Carrasquillo, LAKSHMI - [phone] - from the physicians office (LOGAN Atkins) letting this worker know that pt was here and that son Genaro Varela wants pt to be able to come home to . They prefer that pt does not in the hospital. If they need hospice they would like [facility] or [facility]. This worker will pass along the information.
--- NOTE | 2020-08-20 15:04 | NUR ---
CM/SS: Returned call to physicians office. Provided an update on pt and that he was having radiation today for pain control. LAKSHMI Goldstein from physicians office report that son lives in [place], however he is working in [place] this week and will be back on Tuesday. Pt currently lives alone in [place] in an apartment. This worker will follow up with Vanessa Mold Construction Supervisor from the Cancer [facility] so she is aware of information related to son.
--- NOTE | 2020-08-20 15:14 | NUR ---
Called and requested midline placement. Nurse was gone for the day but her student was able to come down and placed a peripheral IV in patients right FA x2 attempt. Starting Zosyn at this time
[2020-08-20 16:04] VITALS: BP 101/58
--- NOTE | 2020-08-20 16:55 | NUR ---
patient DNR per patient request and Dr. Pang orders. Bracelet placed on patient, door status updated.
[2020-08-20 19:45] VITALS: BP 100/65
[2020-08-20 23:21] VITALS: BP 98/63
[2020-08-21] MEDS: HYDROcodone/APAP 5 MG/325 MG (LORTAB) TAB PO PRN ×2 (01:11→05:12)
[2020-08-21 04:06] VITALS: BP 96/63
[2020-08-21 05:13] LABS: HEMOGLOBIN 13.7 g/dL (13.3-17.7); MEAN PLATELET VOLUME 11.3 fL (9.0-12.2)
[2020-08-21] MEDS: PIPERACILLIN/TAZO 4.5 GM/NS 100 ML IV SCH ×6 (05:13→21:32)
[2020-08-21 05:21] LABS: WHITE BLOOD COUNT 34.4 10^3/uL (4.3-11.0)
[2020-08-21 05:25] LABS: CHLORIDE 100 MMOL/L (98-107); POTASSIUM 3.8 MMOL/L (3.6-5.0); SODIUM 136 MMOL/L (135-145)
[2020-08-21 05:26] LABS: CALCIUM 9.3 MG/DL (8.5-10.1)
[2020-08-21 05:27] LABS: GLUCOSE 101 MG/DL (70-105)
[2020-08-21 05:28] LABS: CARBON DIOXIDE 23 MMOL/L (21-32)
[2020-08-21 05:31] LABS: BUN/CREATININE RATIO 58; CREATININE SERUM 1.16 MG/DL (0.60-1.30); GFR ESTIMATED > 60
--- NOTE | 2020-08-21 05:56 | NUR ---
DR. FELDMAN NOTIFIED OF CRITICAL LAB VALUE OF WBC 34.4.
--- NOTE | 2020-08-21 07:21 | Pulmonary Progress Note ---
Subjective Time Seen by a Provider: 07:18 Subjective/Events-last exam Sp02 96% on RA Sepsis Event Evaluation Height, Weight, BMI Height: 5'9.00" Weight: 171lbs. 0.0oz. 77.654152ye; 22.03 BMI Method:Stated Focused Exam Lactate Level 08/19/20 15:45: Lactic Acid Level 2.34*H 08/19/20 17:50: Lactic Acid Level 1.97 Exam Exam Vital Signs Date Time Temp Pulse Resp B/P (MAP) Pulse Ox O2 Delivery O2 Flow Rate FiO2 08/21/20 04:06 36.1 95 16 96/63 (74) 96 Room Air 08/20/20 23:21 36.0 93 16 98/63 (75) 96 Room Air 08/20/20 20:21 97 Room Air 08/20/20 19:45 36.0 88 16 100/65 (77) 98 Room Air 08/20/20 19:30 Room Air 08/20/20 16:04 36.1 90 17 101/58 (72) 99 Room Air 08/20/20 12:00 36.0 90 20 97/64 (75) 96 Room Air 08/20/20 08:35 36.1 107 20 96/65 (75) 97 Room Air 08/20/20 08:00 97 Room Air I & O 08/21/20 07:00 Intake Total 1847 ml Output Total 1050 ml Balance 797 ml Height & Weight Height: 5'9.00" Weight: 171lbs. 0.0oz. 77.321721bw; 22.03 BMI Method:Stated General Appearance: No Apparent Distress, Chronically ill, Thin HEENT: PERRL/EOMI, Moist Mucous Membranes Neck: Normal Inspection, Supple Respiratory: Lungs Clear, No Accessory Muscle Use, No Respiratory Distress Cardiovascular: Regular Rate, Rhythm, Normal Peripheral Pulses, Systolic Murmur Capillary Refill: Less Than 3 Seconds Gastrointestinal: normal bowel sounds, non tender Extremity: Normal Capillary Refill, No Calf Tenderness, No Pedal Edema Neurologic/Psychiatric: Alert, Oriented x3, Normal Mood/Affect Results Lab Laboratory Tests 08/19/20 13:25 08/20/20 04:50 08/21/20 04:30 Assessment/Plan Assessment/Plan Pneumonia with sepsis -Labs this AM pending -Zosyn -[facility] cultures Metabolic lactic acidosis- improved Metastatic pulmonary adenocarcinoma s/p bone bx -Oncology consulted Hematuria with elevated PSA -Dr. Mayberry consulted AVE HOPKINS DO Aug 21, 2020 07:21
[2020-08-21] MEDS: RT-ALBUTEROL/IPRATROPIUM 3 ML (DUONEB) VIAL INH SCH (07:54)
[2020-08-21 08:00] VITALS: BP 106/69
--- NOTE | 2020-08-21 09:00 | NUR ---
Patient taken down to radiation treatment at this time. IV flushed and locked.
--- NOTE | 2020-08-21 09:15 | NUR ---
ICU contacted this RN to see if the patient still needed a midline if the patient was being put on palliative care. Informed staff the patient currently had a peripheral IV that was working well at this time. If needing one later in the day will contact.
--- NOTE | 2020-08-21 09:59 | NUR ---
Spoke with Dr. Mayberry he stated that the patients urine looks great. Stated he will follow up with patient in one week and perform a bedside cystoscopy at bedside.
--- NOTE | 2020-08-21 10:03 | Progress Note - Urology ---
Progress Note-Urology Progress Notes/Assess & Plan Progress/Assessment & Plan URINE CLEARING. ONCE HOLLI CLEAR WE WILL PLAN FLEXIBLE CYSTO UNDER LOCAL, AT BED SIDE OR OFFICE IF DISMISSED. KEEP OFF ANTICOAGULANTS Final Diagnosis GROSS HEMATURIA CHUCHO SANTANA MD Aug 21, 2020 10:03
--- NOTE | 2020-08-21 10:21 | NUR ---
Dr. Mayberry stated if patient urine is still clear tomorrow we can remove the folley and discharge patient
--- NOTE | 2020-08-21 10:30 | Progress Note - Hospitalist ---
Subjective HPI/CC On Admission Date Seen by Provider: Aug 21, 2020 Time Seen by Provider: 10:24 patient is a 80-year-old male with recently diagnosed metastatic lung cancer who presented to the emergency department due to hematuria. This started yesterday. He was recently diagnosed with metastatic adenocarcinoma. His only complaint at this time is that he has back and hip pain. Fentanyl has not helped it and he is request hydrocodone. His son called the PCPs office who called here and stated that his dad's primary goal is to at home and they are looking in to [facility] hospice. Subjective/Events-last exam Pt reports persistent pain. Went for radiation this morning. Focused Exam Lactate Level 08/19/20 15:45: Lactic Acid Level 2.34*H 08/19/20 17:50: Lactic Acid Level 1.97 Objective Exam Vital Signs Vital Signs Date Time Temp Pulse Resp B/P (MAP) Pulse Ox O2 Delivery O2 Flow Rate FiO2 08/21/20 08:00 35.4 103 16 106/69 (81) 93 Room Air Capillary Refill : Less Than 3 Seconds General Appearance: No Apparent Distress, Chronically ill Respiratory: Lungs Clear, No Accessory Muscle Use, No Respiratory Distress Cardiovascular: Regular Rate, Rhythm, No Murmur Gastrointestinal: Normal Bowel Sounds, Non Tender, Soft Neurologic/Psychiatric: Alert, Oriented x3 Results/Procedures Lab Laboratory Tests 08/21/20 04:30 Patient resulted labs reviewed. Imaging: Reviewed Imaging Report Assessment/Plan Assessment and Plan Assess & Plan/Chief Complaint Metatstatic adenocarcinoma, lung primary with bony mets Dr Gil consulted, appreciate recs Continue pain regimen Discussed son's goals with Dr Gil Increase pain regimen Palliative radiation done today, discused with radiation RN and plan is for 10 doses Severe Sepsis from CAP- present on admission Profound leukocytosis ?sepsis from pneumonia Continue zosyn Pulm consulted, appreciate recs Hematuria Catheter in place Dr Mayberry consulted, appreciate recs Hold plavix for now Discussed with Dr Mayberry, will need flex cystoscopy Hypercalcemia- resolved Likely due to cancer DVT ppx: SCDs Clinical Quality Measures DVT/VTE Risk/Contraindication: Risk Factor Score Per Nursin RFS Level Per Nursing on Admit: 2=Moderate QUIQUE ATWOOD MD Aug 21, 2020 10:30
--- NOTE | 2020-08-21 11:43 | NUR ---
Notified Anali the professor of social work that the patients family member wants her to contact him at [phone].
[2020-08-21] MEDS: HYDROcodone/APAP 10 MG/325 MG (LORTAB) TAB PO PRN ×2 (11:54→18:48)
[2020-08-21 12:00] VITALS: BP 93/55
--- NOTE | 2020-08-21 13:39 | NUR ---
Returned call to pt's brother Jaren Kay who was expressing concern about pt. He has been transporting pt to and from therapy at [facility] and is willing to assist pt but states pt was having much difficulty transferring from his vehicle. Advised brother that continued care plans remain pending will follow.
[2020-08-21] MEDS ORDERED: HYDR-3817 PO (14:23)
--- NOTE | 2020-08-21 14:30 | NUR ---
WENT TO SPEAK WITH THE PT- UNFORTUNATELY HE COULD NOT TELL ME ANYTHING ABOUT HIS MEDICATIONS. I CALLED HIS SON (JACQUELINE) WITH NO ANSWER. PT LET ME KNOW THE [facility]ER CENTER SHOULD HAVE AN UP TO DATE LIST. I CALLED AND SPOKE WITH WARREN MARTINS IN THE [facility]ER C[facility] WHO LET ME KNOW THAT THE PT HAS ONLY BEEN THERE ONCE AND THE MED LIST WAS GIVEN TO HER BY THE PT SON. ACCORDING TO WARREN THE ONLY MEDICATIONS THEY HAD ON FILE WAS ASPIRIN 81MG, PLAVIX 75, HYDROCODONE AND LISINOPRIL 5MG
--- NOTE | 2020-08-21 15:16 | Occupational Therapy Eval ---
OT Evaluation-General/PLF Medical Diagnosis Admission Date Aug 19, 2020 at 16:24 Medical Diagnosis: Metastic lung CA, bony mets Onset Date: Aug 19, 2020 Therapy Diagnosis Therapy Diagnosis: Weakness Height/Weight Height (Feet): 5 Height (Inches): 9.00 Weight (Pounds): 171 Weight (Ounces): 0.0 Precautions Precautions/Isolations: Standard Precautions Referral Physician: Dr. Verduzco Referral Reason: Evaluation/Treatment Medical History Additional Medical History Coronary stent, DDD, Amputee Current History Pt. currently receiving palliative radiation for metastatic lung CA. ADL-Prior Level of Function SCALE: Activities may be completed with or without assistive devices. 0-Knnwixwmrx-nqqjtrv completes the activity by him/herself with no assistance from a helper. 5-Set-up or Clean-up Assistance-helper sets up or cleans up; patient completes activity. [place] assists only prior to or following the activity. 4-Supervision or Touching Assistance-helper provides verbal cues and/or touching/steadying and/or contact guard assistance as patient completes activity. Assistance may be provided throughout the activity or intermittently. 3-Partial/Moderate Assistance-helper does LESS THAN HALF the effort. [place] lifts, holds or supports trunk or limbs, but provides less than half the effort. 2-Substantial/Maximal Assistance-helper does MORE THAN HALF the effort. [place] lifts or holds trunk or limbs and provides more than half the effort. 3-Ksdjyzfwj-nvuqcm does ALL the effort. Patient does none of the effort to complete the activity. Or, the assistance of 2 or more helpers is required for the patient to complete the activity. If activity was not attempted, code reason: 7-Patient Refused. 9-Not Applicable-not attempted and the patient did not perform the activity before the current illness, exacerbation or injury. 10-Not Attempted due to Environmental Limitations-(lack of equipment, weather restraints, etc.). 88-Not Attempted due to Medical Conditions or Safety Concerns. Self Care: Unknown Functional Cognition: Independent OT Current Status Subjective Pt. does not report pain level, but does report significant pain with any movement. Nursing aware. Appearance Pt. in bed. Pt. unable to tolerate movement or transfers at this time. Mental Status/Objective Patient Orientation: Person, Place, Time, Situation Other Treatments OT order received, chart reviewed. Assessed pt. to determine any skilled therapy needs. OT/PT assessed pt. Pt. required max x 2 to roll, so therapy could determine if pt. soiled bed, as pt. not aware. Pt. did not soil bed, but would benefit from rear lucia care. PT held pt. onto side while OT cleansed lucia area. Pt. yells out that he is hurting. Pt. transferred back to comfortable position and bed mobility performed for continued comfort. Nursing notified that pt. unable to tolerate physical treatment at this time, due to pain levels and medical status. Education OT Patient Education: Correct positioning, Reviewed precautions, Rehab process Teaching Recipient: Patient Teaching Methods: Discussion Response to Teaching: Verbalize Understanding, Unable to Return Demonstration OT Senior Living Goals Senior Living Goals Time Frame: Aug 21, 2020 1=Demonstrate adherence to instructed precautions during ADL tasks. 2=Patient will verbalize/demonstrate understanding of assistive devices/modifications for ADL. 3=Patient will improve strength/tolerance for activity to enable patient to perform ADL's. No OT treatment at this time due to pain level and fragile state of medical issues. OT Education/Plan Problem List/Assessment Assessment: No Skilled OT Needs ID'd Discharge Recommendations Plan/Recommendations: Discontinue OT Therapy Discharge Recommendati: 24 Hour Supervision Treatment Plan/Plan of Care Plan of Care: OTHER Comment Discharge pt. at this time. Treatment Duration: Aug 21, 2020 Frequency: 1 time per week Time/GCodes Start Time: 14:10 Stop Time: 14:20 Total Time Billed (hr/min): 10 Billed Treatment Time 1, EVH x 10minutes Discharge OT services at this time. MARVIN MAGUIRE OT Aug 21, 2020 15:16
--- NOTE | 2020-08-21 15:19 | Physical Therapy Evaluation ---
PT Evaluation-General Medical Diagnosis Admission Date Aug 19, 2020 at 16:24 Medical Diagnosis: hematuria/metastatic lung cancer to bone Onset Date: Aug 19, 2020 Therapy Diagnosis Therapy Diagnosis: generalized weakness/debility/uncontrolled pain Height/Weight Height (Feet): 5 Height (Inches): 9.00 Weight (Pounds): 171 Weight (Ounces): 0.0 Precautions Precautions/Isolations: Standard Precautions Referral Physician: Luba Reason for Referral: Evaluation/Treatment Medical History Pertinent Medical History: CAD, COPD, HTN, Neuropathy Additional Medical History metastatic lung cancer to bone Current History ER secondary to clots in urine (Hx of bladder cancer) Reviewed History: Yes Prior Prior Level of Function SCALE: Activities may be completed with or without assistive devices. 7-Znvxncmbai-krcattp completes the activity by him/herself with no assistance from a helper. 5-Set-up or Clean-up Assistance-helper sets up or cleans up; patient completes activity. [place] assists only prior to or following the activity. 4-Supervision or Touching Assistance-helper provides verbal cues and/or touching/steadying and/or contact guard assistance as patient completes activity. Assistance may be provided throughout the activity or intermittently. 3-Partial/Moderate Assistance-helper does LESS THAN HALF the effort. [place] l ifts, holds or supports trunk or limbs, but provides less than half the effort. 2-Substantial/Maximal Assistance-helper does MORE THAN HALF the effort. [place] lifts or holds trunk or limbs and provides more than half the effort. 7-Vxkjiojci-zlxjcx does ALL the effort. Patient does none of the effort to complete the activity. Or, the assistance of 2 or more helpers is required for t he patient to complete the activity. If activity was not attempted, code reason: 7-Patient Refused. 9-Not Applicable-not attempted and the patient did not perform the activity before the current illness, exacerbation or injury. 10-Not Attempted due to Environmental Limitations-(lack of equipment, weather restraints, etc.). 88-Not Attempted due to Medical Conditions or Safety Concerns. Bed Mobility: 2 Transfers (B,C,W/C): 2 Gait: 9 Stairs: 9 Indoor Mobility (Ambulation): Not [place] Stairs: Not [place]be PT Evaluation-Current Subjective Patient reports he hasn't been able to do much at home due to uncontrolled pain in his hips and back. Pain Numeric Pain Scale: 10-Worst Possible Pain Location: Right, Left Location Body Site: Hip Pain Description: Pressure Objective Patient Orientation: Normal For Age Attachments: Davies Catheter ROM/Strength ROM Lower Extremities NT due to pain Strength Lower Extremities NT due to pain Integumentary/Posture Integumentary refer to nursing notes Bladder Incontinence: Davies Cath Neuromuscular (Tone, Coordination, Reflexes) diminished due to weakness from medical condition Sensory Vision: Functional Transfers Roll Left to Right (QC): 1 (x 2) Sit to Lying (QC): 7 Lying to Sitting/Side of Bed(Q: 7 Sit to Stand (QC): 7 Chair/Syc-ne-Fclte Xfer(QC): 7 turning patient to cleanse due to incontinence Gait Does the Patient Walk?: No and Walking Goal NOT indicated Assessment/Needs 80 y.o. male, with metastatic cancer, is currently unable to tolerate therapy due to uncontrolled pain of bilateral LE and back. Patient declined OOB activity, exercise and does not want therapy at this time. Physician notified. PT/OT cotreat due to patient status. Rehab Potential: Poor PT Plan Treatment/Plan Treatment Plan: Discontinue PT Treatment Duration: Aug 21, 2020 Frequency: 1 time per week Estimated Hrs Per Day: .25 hour per day Time/GCodes Time In: 1406 Time Out: 1420 Total Billed Treatment Time: 14 Total Billed Treatment 1 visit [facility] 14 min WENDY GOEL PT Aug 21, 2020 15:19
--- NOTE | 2020-08-21 15:42 | NUR ---
Palliative Care RN in to see patient. He did awaken to my voice. When asked if the Morphine helped better than the Fentanyl he hesitated and then said "maybe a little bit", then he drifted off I think but his eyes were left open. I started watching his respirations and noted Parminder-Tian type...with about 3-4 rapid respirations, slowing until ceased for approximately [address] Verduzco notified. Will continue to follow and offer support as able.
[2020-08-21] MEDS ORDERED: morphine INJ 4 MG/ML 1 ML (VIAL/SYRINGE) IV PRN (16:00)
[2020-08-21] MEDS ORDERED: morphine INJ 10 MG/ML 1ML (SYR OR VIAL) IVP PRN (16:00)
[2020-08-21 16:31] VITALS: BP 99/65
[2020-08-21 20:16] VITALS: BP 96/66
--- NOTE | 2020-08-21 21:50 | CONSULTATION REPORT ---
DATE OF SERVICE: 08/21/2020 The patient is admitted to room 409. PHYSICIAN REQUESTING CONSULTATION: Karen Verduzco MD IMPRESSION: 1. A 80-year-old male admitted to the hospital with hematuria and worsening left hip pain. 2. 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 3. 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 Mayberry. 4. Probable urinary tract infection. RECOMMENDATIONS: 1. Continue pain control as you are doing and titrate dose to keep the patient comfortable. 2. Consult radiation oncology for palliative radiation therapy to the left hemipelvis for pain control. 3. Agree with the urology evaluation and cystoscopy because of hillary hematuria. 4. Next gen sequencing is pending from the biopsy and I will await these results before discussing systemic treatment options. 5. The patient's family had questions regarding hospice care. I discussed this with his son over the phone. I informed them that if the patient is not planning on taking any systemic treatment, I would recommend hospice for best supportive care. If he is planning on any treatment, I would recommend delaying the decision regarding hospice. 6. Continue antibiotics for possible urinary tract infection as you are doing. BRIEF HISTORY: The patient is a 80-year-old male with increasing back and left hip pain and underwent an orthopedic evaluation on an outpatient basis. MRI showed multiple bony lesions concerning for metastatic disease and he was referred for further evaluation. He underwent staging studies as well as a CT-guided biopsy of the left pelvic bone lesion, which turned out to be metastatic poorly differentiated carcinoma consistent with adenocarcinoma of lung origin. He came to the emergency room with hillary hematuria and worsening left hip pain and was admitted to the hospital. Medical oncology consultation was requested for concurrent care and to discuss further options. PAST MEDICAL HISTORY: Significant for hypertension for several years. He has coronary artery disease and an GA several years ago requiring three stent placement. Also has history of depression. PAST SURGICAL HISTORY: Include left leg surgery at 20 years of age. Right hand surgery following an injury approximately 40 years ago. He has had a TURBT with BCG treatment for a superficial bladder cancer several years ago. OTHER SURGERIES: Include tonsillectomy. FAMILY HISTORY: The patient was adopted and does not know his biological parents or family history. No history of malignancies or major medical problems in his children. His son has anxiety/depression. SOCIAL HISTORY: The patient is and lives in [place], [place]. He has six sons and 2 daughters, most of whom live far. One son lives close by and is the primary caregiver for him. 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 He has smoked cigarettes daily for several years, quitting in the late 1980s. He has also smoked marijuana daily for most of his life. He denied any other recreational drug use. No significant alcohol use. PHYSICAL EXAMINATION: GENERAL: Showed an elderly male, awake and answering questions appropriately, weak appearing, in mild distress due to pain. VITAL SIGNS: Temperature was 36.1 degrees centigrade, pulse rate of 97, respirations 15, blood pressure 99/65 with oxygen saturation of 96% on room air. HEENT: Normocephalic, extraocular muscles intact, conjunctivae pink, oral mucosa moist. NECK: Supple, with no JVD. No cervical, supraclavicular or axillary lymphadenopathy palpable. CHEST: Symmetrical. LUNGS: With diminished breath sounds bilaterally without wheezes or rales. CARDIOVASCULAR: Regular in rate and rhythm. No murmurs or gallops heard. ABDOMEN: Soft, nontender with no hepatosplenomegaly or other masses palpable. EXTREMITIES: Showed no edema. NEUROLOGIC: Showed motor strength of 4/5 in the left lower extremity. The patient is restricting movement because of severe left-sided hip pain. LABORATORY DATA: CBC done today showed WBC 34.4, hemoglobin 13.7, platelet count 176,000. Automated differential count done yesterday showed a neutrophil count 35.6 with a total white count of 41.1, lymphocyte count 1.5, monocyte count 2.1 and eosinophil count 0.5. Comprehensive metabolic panel done yesterday showed normal electrolytes. BUN was 74 and creatinine 1.17 with GFR 60 mL per minute. Nonfasting glucose was 115. Corrected calcium was 10.7. Total bilirubin was 1.5 and albumin 2.7 with rest of the liver function studies within normal limits. Urinalysis showed bloody urine with red cells too numerous to count, and WBC 25 to 50 per high power field. Moderate amount of bacteria noted. Culture is pending. Job ID: [id number] DocumentID: [id number] Dictated Date: 08/21/2020 17:51:33 Gemologist Date: 08/21/2020 21:49:44 Dictated By: LISBETH PALMER MD MTDD
[2020-08-22] MEDS: RT-ALBUTEROL/IPRATROPIUM 3 ML (DUONEB) VIAL INH SCH ×2 (00:01→07:05)
[2020-08-22 00:20] VITALS: BP 81/53
[2020-08-22] MEDS: HYDROcodone/APAP 10 MG/325 MG (LORTAB) TAB PO PRN ×3 (01:19→10:43)
[2020-08-22 03:53] VITALS: BP 82/56
[2020-08-22] MEDS: PIPERACILLIN/TAZO 4.5 GM/NS 100 ML IV SCH ×2 (05:27)
[2020-08-22 08:00] VITALS: BP 91/59
[2020-08-22] MEDS ORDERED: dexAMETHasone 6 MG TAB (DECADRON) PO SCH (08:00)
--- NOTE | 2020-08-22 08:58 | NUR ---
PALLIATIVE CARE RN in to see patient. He is alert and oriented. His respirations are regular currently. He does have moments of "drifting off" during visit but does come right back. Patient reports that his pain currently is 8 or 9 and says it never really gets better than that. He is not eating or drinking much except for his ensures. Patient reports living alone but having a daughter and son who care for him. He would like to retur to home once all this radiation is over. I did encourage him to move around so that when he is done with radiation he will no have an extended recovery time. Will continue to follow and offer assist as able.
--- NOTE | 2020-08-22 09:49 | Progress Note - Urology ---
Progress Note-Urology Progress Notes/Assess & Plan Progress/Assessment & Plan URINE CLEAR AND YELLOW Final Diagnosis GROSS HEMATURIA CHUCHO SANTANA MD Aug 22, 2020 09:49
--- NOTE | 2020-08-22 10:10 | NUR ---
Swing Bed Note: Authorization received from [facility] for patent to be admitted to swing bed today 08/22/20. Auth number is [id number]. Next review date will be needed on 08/26/20. Clinical information will need to be faxed to [phone]. Patient is approved for swing bed for continued need of IV abx (Pneumonia). I also spoke with the clinical reviewer about the patient's chief complaint of uncontrolled pain (MET CA to bone) and that he is receiving daily radiation treatments along with IV and oral pain medication to help manage that pain. Our goal is to complete 10 radiation treatments while adjusting IV and oral pain medications for control. The patient is unable to transfer back and forth to hospital for radiation treatments d/t inability to get out of bed or transfer without max assistance and severe pain. He needs to continue here at the hospital to receive those daily treatments.
--- NOTE | 2020-08-22 10:46 | Discharge Summary ---
Diagnosis/Chief Complaint Date of Admission Aug 19, 2020 at 16:24 Date of Discharge Admission Diagnosis Metatstatic adenocarcinoma [facility] Discharge Summary Procedures/Consulations Dr Gil, oncology Dr Nolen, Pulm Dr Mayberry- Urology Discharge Physical Exam Allergies: Coded Allergies: codeine (Verified Allergy, Unknown, pt has received Lortab & Morphine w/o issue, 08/20/20) gabapentin (Verified Allergy, Unknown, 08/13/20) AGGITATION Vitals & I&Os Vital Signs Date Time Temp Pulse Resp B/P (MAP) Pulse Ox O2 Delivery O2 Flow Rate FiO2 08/22/20 08:00 36.0 90 22 91/59 (70) 100 Room Air General Appearance: No Apparent Distress, Chronically ill, Cachetic Respiratory: Lungs Clear, No Respiratory Distress Cardiovascular: Regular Rate, Rhythm, No Murmur Hospital Course Pt was admitted due to hematuria and uncontrolled pain from bony mets from lung cancer. This was recently diagnosed and pathology results just revealed that this was adenocarcinoma with a lung primary. Dr Mayberry was consulted and recommended a cystoscopy at some point, likely next week. Dr Gil recommended palliative radiation for bony mets for pain control. He was discharged to swing bed status for continue pain control and IV antibiotics. He will continue on radiation as well. I did discuss the patient's prognosis with his son who states the patient's goals are to at home but is ok with palliative radiation to assist with pain control. Labs (last 24 hrs) Microbiology 08/19/20 Blood Culture - Preliminary, Resulted No growth 08/19/20 Urine Culture - Final, Complete NO GROWTH Patient resulted labs reviewed. Imaging: Reviewed Imaging Report Discussion & Recommendations Discharge Planning: >30 minutes discharge planning Discharge Home Medications: Active Scripts Active Reported Hydrocodone-Acetamin 7.5-325 (Hydrocodone/Acetaminophen) 1 Each Tablet 1 Ea PO DAILY PRN Lisinopril 5 Mg Tablet 5 Mg PO DAILY Aspirin 81 Mg Tab.chew 81 Mg PO DAILY Clopidogrel (Clopidogrel Bisulfate) 75 Mg Tablet 75 Tab PO DAILY Instructions to patient/family Please see electronic discharge instructions given to patient. Clinical Quality Measures DVT/VTE Risk/Contraindication: Risk Factor Score Per Nursin RFS Level Per Nursing on Admit: 2=Moderate Copy Copies To 1: QUIQUE White MD Aug 22, 2020 10:46
[2020-08-22 11:08] LABS: HEMOGLOBIN 12.4 g/dL (13.3-17.7); MEAN PLATELET VOLUME 10.9 fL (9.0-12.2); WHITE BLOOD COUNT 26.4 10^3/uL (4.3-11.0)
[2020-08-22 11:20] LABS: BUN/CREATININE RATIO 50; CALCIUM 8.8 MG/DL (8.5-10.1); CARBON DIOXIDE 24 MMOL/L (21-32); CHLORIDE 99 MMOL/L (98-107); CREATININE SERUM 1.11 MG/DL (0.60-1.30); GFR ESTIMATED > 60; GLUCOSE 109 MG/DL (70-105); POTASSIUM 3.7 MMOL/L (3.6-5.0); SODIUM 134 MMOL/L (135-145)
== END 2020-08-22 10:49 | disposition swing bed (61) | DRG 871 ==
LOC: EDUNIT# 12:32 → ER 12:34 → 4TH 16:24
PROVIDERS: ADMIT Family Medicine; ATTEND Family Medicine
DX: A41.9 Sepsis, unspecified organism (principal); J18.9 Pneumonia, unspecified organism; C34.92 Malignant neoplasm of unspecified part of left bronchus or lung; C79.51 Secondary malignant neoplasm of bone; E87.2 Acidosis; J44.0 Chronic obstructive pulmonary disease with (acute) lower respiratory infection; R65.20 Severe sepsis without septic shock; C67.9 Malignant neoplasm of bladder, unspecified; I25.119 Atherosclerotic heart disease of native coronary artery with unspecified angina pectoris; R31.0 Gross hematuria; I10 Essential (primary) hypertension; G62.9 Polyneuropathy, unspecified; E83.52 Hypercalcemia; M19.91 Primary osteoarthritis, unspecified site; Z95.5 Presence of coronary angioplasty implant and graft; Z87.891 Personal history of nicotine dependence
CPT/HCPCS: 36415; 51702; 71045; 77290; 77295; 77300; 77334; 77417; 80048; 80053; 81000; 83605; 84153; 85007; 85025; 85027; 85610; 85730; 87040; 87088; 94640; 94760

== ENCOUNTER 2020-08-22 10:54 | Inpatient (IN) | payer MEDICARE ==
[~2020-08-22] VITALS: Ht 172 cm; Wt 65.2 kg
--- NOTE | 2020-08-22 10:40 | NUR ---
Swing Bed Note: Authorization received from [facility] for patent to be admitted to swing bed today 08/22/20. Auth number is [id number]. Next review date will be needed on 08/26/20. Clinical information will need to be faxed to [phone]. Patient is approved for swing bed for continued need of IV abx (Pneumonia). I also spoke with the clinical reviewer about the patient's chief complaint of uncontrolled pain (MET CA to bone) and that he is receiving daily radiation treatments along with IV and oral pain medication to help manage that pain. Our goal is to complete 10 radiation treatments while adjusting IV and oral pain medications for control. The patient is unable to transfer back and forth to hospital for radiation treatments d/t inability to get out of bed or transfer without max assistance and severe pain. He needs to continue here at the hospital to receive those daily treatments.
--- NOTE | 2020-08-22 10:52 | NUR ---
Admission Drug Regimen Review: Date: 08/22/20 Time: 1053 Review Completed, No Issues found
[~2020-08-22 10:54] MED LIST changes: +HYDR-3817 PO
--- NOTE | 2020-08-22 10:56 | NUR ---
MARY SOUZA admitted to swing bed status to room 409 , with an admitting diagnosis of SWB , on 08/22/20 from acute inpatient status. Therapy to evaluate patient for activity needs. MARY SOUZA and/or family introduced to surroundings, call light, bed controls, phone, TV, temperature control, lights, meal times, smoking policy, visitor policy, side rail policy, bathrooms, and showers. Patient rights given to patient in the handbook.. MARY SOUZA and/or family member verbalized understanding that [facility] is not responsible for the loss or damage to any personal effects or valuables that are kept in the patients possession during their hospitalization. MARY SOUZA and/or family verbalizes understanding of the Interdisciplinary Patient Education. Patient and/or family were informed about the Rapid Response Team and its purpose. Call light with in reach and patient demonstrates understanding of how to use. MARY SOUZA reports no further needs at this time.
[2020-08-22] MEDS ORDERED: PIPERACILLIN/TAZOBACTAM (BULK) 4.5 GM in NS (IVPB) 100 ML IV SCH (11:00)
[2020-08-22] MEDS: fentaNYL INJECTION 100 MCG/2 ML AMP IVP PRN (12:21)
[2020-08-22] MEDS: PIPERACILLIN/TAZOBACTAM (BULK) 4.5 GM in NS (IVPB) 100 ML IV SCH ×2 (13:52→21:58)
--- NOTE | 2020-08-22 16:03 | NUR ---
Mr. Williamson is and lives alone in [place]. He has a son who is employed and lives close who is his primary caregiver. His brother Jaren Kay has also been assisting him recently with transportation. Met with pt who reported improvement in his pain this afternoon as states hip and back pain has been nearly unbearable. He thinks his son is out of town but due to return home sometime next week. Acknowledges feeling somewhat foggy and that he could hardly do anything but cope with his pain. He plans to resume radiation treatments on Tuesday.
[2020-08-22 17:56] VITALS: BP 103/67
[2020-08-22] MEDS: HYDROcodone/APAP 10 MG/325 MG (LORTAB) TAB PO PRN (18:24)
[2020-08-22] MEDS: RT-ALBUTEROL/IPRATROPIUM 3 ML (DUONEB) VIAL INH SCH (19:02)
[2020-08-23] MEDS: HYDROcodone/APAP 10 MG/325 MG (LORTAB) TAB PO PRN ×5 (03:37→23:51)
[2020-08-23] MEDS: PIPERACILLIN/TAZOBACTAM (BULK) 4.5 GM in NS (IVPB) 100 ML IV SCH ×3 (05:56→21:59)
[2020-08-23 06:02] VITALS: BP 118/63
[2020-08-23] MEDS: RT-ALBUTEROL/IPRATROPIUM 3 ML (DUONEB) VIAL INH SCH ×2 (08:49→18:16)
--- NOTE | 2020-08-23 09:37 | Progress Note - Urology ---
Progress Note-Urology Progress Notes/Assess & Plan Progress/Assessment & Plan URINE REMAINS CLEAR. WE WILL DISCUSS ON TUESDAY CYSTOSCOPY Final Diagnosis GROSS HEMATURIA CHUCHO SANTANA MD Aug 23, 2020 09:37
[2020-08-23] MEDS: CATHETER FLUSH 10 ML SYR IV PRN (13:58)
[2020-08-23] MEDS: morphine INJ 4 MG/ML 1 ML (VIAL/SYRINGE) IV PRN ×2 (15:24→22:00)
[2020-08-23 17:00] VITALS: BP 115/58
[2020-08-23] MEDS: fentaNYL INJECTION 100 MCG/2 ML AMP IVP PRN (17:32)
--- NOTE | 2020-08-23 17:33 | NUR ---
PATIENT NOTED TO HAVE INCREASE PAIN THIS AFTERNOON. NON PHARM METHODS INEFFECTIVE IN MANAGING PAIN TO COMFORTABLE OR TOLERABLE LEVEL. WARM BLANKET OT BACK WHICH IS WHERER PATIENT C/O THE CONSTANT ACHE IS WORSENING. FENTANYL GIVEN PER ORDER AT THIS TIME. PATIENT ENCOURAGED TO EAT. PATIENT WITH POOR APPETITE TODAY. HAS CONSUMED ENSURES X 3 WITH MUCH ENCOURAGEMENT. PATIENT REPORTS IMMEDIATE RELIEF OF PAIN AT THIS TIME. STATES, "MUCH BETTER, HUN." CONT TO MONITOR. Addendum: 08/27/20 at 1502 by ERIKA FLOWER RN PAIN MANAGEMENT WITH IV FENTANYL, IVMORPHINE AND HYDROCODONE
--- NOTE | 2020-08-23 19:00 | NUR ---
SPOKE WITH PATIENT'S BROTHER, LOVE AND DAUGHTER, CECILY TODAY. UPDATED THESE FAMILY MEMBERS AND SPOKE IN DEPTH. (LOVE FOR 14MIN 49SEC) . ENCOURAGED FAMILY TO CALL ANYTIME.
[2020-08-24 05:41] VITALS: BP 123/71
[2020-08-24] MEDS: PIPERACILLIN/TAZOBACTAM (BULK) 4.5 GM in NS (IVPB) 100 ML IV SCH ×3 (05:43→22:06)
[2020-08-24] MEDS: HYDROcodone/APAP 10 MG/325 MG (LORTAB) TAB PO PRN ×3 (05:44→18:22)
[2020-08-24] MEDS: CATHETER FLUSH 10 ML SYR IV PRN ×2 (07:59→17:49)
[2020-08-24] MEDS: morphine INJ 4 MG/ML 1 ML (VIAL/SYRINGE) IV PRN ×3 (08:00→22:05)
--- NOTE | 2020-08-24 15:00 | NUR ---
PATIENT STATES HIS FAMILY HAS BEEN TRYING TO CALL ALL DAY BUT HE JUST WANTS TO WATCH THE GAME. PATIENT NTOED TO BE WATCHING FOOTBALL
--- NOTE | 2020-08-24 16:00 | NUR ---
PATIENT VERBALIZES TO THIS RN HE WOULD LIKE TO SPEAK WITH HIS CHILDREN. PATIENT APPEARS DEPRESSED THIS AFTERNOON. THIS NURSE PROVIDED BEDSIDE PRESENCE FREQUENTLY THOUGHOUT THE DAY AND ENCOURAGED EXPRESSION OF FEELINGS. PATIENT STATES THEY CALLED TODAY BUT HE WANTED TO WAIT UNTIL AFTER THE GAME TO SPEAK TO THEM. PATIENT IS UNAWARE OF TELEPHONE NUMBERS. THIS RN LOOKED UP CONTACT NUMBERS AND REACHED OUT TO PATIENT'S SON, INDIGO SOUZA. THSI RN LEFT A MESSAGE REQUESTING CALL BACK. THIS RN LEFT NUMBER AWAITING CALL BACK. NEXT CONTACT, SHYANNE FRASER, PATIENT STATES IS NOT HIS SON BUT MAYBE HE HAS HIS DAUGHTER'S CONTACT NUMBER AND HE WOULD SPEAK WITH JACQUELINE. PATIENT STATES HE JUST FEELS TERRIBLE HE DID NOT SPEAK WITH THE FAMILY WHEN THEY CALLED AND REPORTS HE CHOSE NOT TO ANSWER HIS PHONE AND HE IS FEELING BAD ABOUT NOT ANSWERING HIS PHONE. THIS RN REACHED OUT TO JACQUELINE MEHTA AT 1545 AND LEFT MESSAGE I WAS CALLING ON BEHALF OF THE PATIENT AND IDENTIFIED MYSELF. ([id number]) JACQUELINE RETURNED THIS RN CALL ([id number]) RN UPDATE AND RELAYED MESSAGE PATIENT IS DOWN AND WANTING TO TALK TO FAMILY. JACQUELINE SAID HE CAN'T CALL RIGHT NOW , HE IS DOWN IN THE HODGE, CUTTING WOOD. ALSO STATED "WE TRIED TO CALL BUT HE DID NOT WANT TO TALK UNITL AFTER THE GAME" SOUNDING IRRITATED. THIS RN ASKED KINDLY IF I COULD OBTAIN CECILY, THE PATIENT'S DAUGHTER'S NUMBER. HE TOLD THIS RN HE WAS BUSY AND IF HE CAN GET AROUND TO IT HE WILL GET IT TO ME. HE WAS AGREEABLE TO TEXT IT TO THIS RN. RN AWAITING TEXT
[2020-08-24 17:16] VITALS: BP 127/67
[2020-08-24] MEDS: RT-ALBUTEROL/IPRATROPIUM 3 ML (DUONEB) VIAL INH SCH (18:34)
--- NOTE | 2020-08-24 18:50 | NUR ---
THE PATIENT HAS INTERMITTENTLY REFUSED POSITIONING CHANGES TODAY DESPITE EDUCATION ON SKIN BREAKDOWN AND IMPORTANCE. PATIENT AGREEABLE THIS EVENING TO SHIFT TO RIGHT SIDE. PATIENT NOTED TO SHIFT SELF BACK TO SUPINE ALMOST IMMEDIATELY. PATIENT STATES, 'I AM FINE, I DO NOT NEED IT (POSITION CHANGE)'. CONT TO ENCOURAGE INTERVENTIONS FOR SKIN INTEGRITY PROMOTION. PATIENT RATING PAIN 7/10 AT THIS TIME, DULL ACHE IN BACK. STATES HE FEELS 'COMFORTABLE' AND REFUSES ANY FURTHER MEDICATION FOR PAIN AND NON PHARM INTERVENTIONS. CONT TO MONITOR.
[2020-08-25] MEDS: HYDROcodone/APAP 10 MG/325 MG (LORTAB) TAB PO PRN ×5 (01:21→23:56)
[2020-08-25] MEDS: morphine INJ 4 MG/ML 1 ML (VIAL/SYRINGE) IV PRN ×2 (03:12→08:14)
[2020-08-25 05:34] VITALS: BP 110/70
[2020-08-25] MEDS: PIPERACILLIN/TAZOBACTAM (BULK) 4.5 GM in NS (IVPB) 100 ML IV SCH ×2 (05:35→13:48)
[2020-08-25] MEDS: RT-ALBUTEROL/IPRATROPIUM 3 ML (DUONEB) VIAL INH SCH (07:14)
--- NOTE | 2020-08-25 11:21 | NUR ---
DR. FISHER ON FLOOR ASSESSING PATIENT. THIS RN INFORMED PATIENT WOULD BENEFIT FROM ANXIETY MEDICATION. RECEIVED VERBAL ORDER ONE TIME XANAX 0.25MG PO. THIS RN INFORMED DR. FISHER THAT IV WAS LOST AND THIS RN AND LAKSHMI BATISTA ATTEMPTED X3 EACH WITH NO SUCCESS AND THAT PATIENT IS ON ZOSYN. TO ASSESS AND SPEAK WITH PATIENT ABOUT CONTINUED CARE AND WISHES.
[2020-08-25] MEDS ORDERED: ALPRAZolam 0.25 MG (XANAX) TAB PO NR (11:30)
--- NOTE | 2020-08-25 11:31 | NUR ---
DR. FISHER GAVE VERBAL ORDER FOR 15MG MS CONTIN BID PO TO GIVE NOW THEN BID
--- NOTE | 2020-08-25 11:35 | NUR ---
DR. FISHER GAVE VERBAL ORDER FOR VENOUS ACCESS PICC
[2020-08-25] MEDS: morphine ER 15 MG (MS CONTIN) TAB PO SCH ×2 (11:42→20:44)
--- NOTE | 2020-08-25 13:40 | NUR ---
Palliative Care RN in to see patient. He is sitting up in bed watching TV. On first observation patient does appear to be more perky and in less pain. He denies this however, saying that it is not better at all and that it will never get better because the cancer has gone everywhere. He reports that he will no longer be getting the radiation treatments either and that he is just "waiting to croak". He doesn't know if it will take 1 day or 1 year. He reports that he does not want to go home "to croak" as he doesn't have a home because he was renting. When asked about Hospice he indicated that he does not want hospice and that he needed to speak with his family first.
--- NOTE | 2020-08-25 14:04 | NUR ---
"RD ASSESSMENT PMHx: CA(metastatic lung, bladder); CAD; HTN PT INTERACTION: Pt was awake and pleasant during nutrition follow-up. Pt states he has been eating okay since last assessment. Note pt has not been eating very much of his meals, per chart review. Pt states no issues with nausea, vomiting, constipation, or diarrhea since last assessment. Note last BM was 08/25, and pt not currently on bowel regimen per chart review. ABNORMAL NUTRITION-RELATED LAB VALUES No labs drawn Est. kcal needs: 6362-0148 kcal | 25-30 kcal/kg Est. Pro needs: 65-78 g Pro | 1.0-1.2 g Pro/kg PES STATEMENT: Inadequate oral intake (NI-2.1) related to loss of appetite as evidenced by pt interview and chart review. INTERVENTION: Continue with current diet order of DYS2 Mechanically Altered diet. Continue with current supplementation order of Ensure Enlive with meals TID, for increased kcal intake. Provides 350 kcal and 20 g Pro per serving. Encouraged pt to eat when able. Will continue to follow and reassess as pt needs, intake, and status change. Talon Ozuna, MS RD LD"
--- NOTE | 2020-08-25 16:13 | Progress Note - Hospitalist ---
Subjective HPI/CC On Admission Date Seen by Provider: Aug 25, 2020 Time Seen by Provider: 11:20 Subjective/Events-last exam He is still having pain. He is having issues with moving around. He has been eating and drinking. He has no other complaints or concerns. Objective Exam Vital Signs Vital Signs Date Time Temp Pulse Resp B/P (MAP) Pulse Ox O2 Delivery O2 Flow Rate FiO2 08/25/20 14:41 95 Room Air 08/25/20 07:14 0.00 08/25/20 05:34 36.2 87 22 110/70 (83) Capillary Refill : Less Than 3 Seconds General Appearance: Chronically ill, Thin Respiratory: Lungs Clear, Normal Breath Sounds, No Respiratory Distress Cardiovascular: No Murmur, Tachycardia Gastrointestinal: Normal Bowel Sounds, Non Tender, Soft Extremity: Normal Inspection, Non Tender, No Pedal Edema Neurologic/Psychiatric: Alert, Oriented x3, No Motor/Sensory Deficits, Normal Mood/Affect Skin: Normal Color, Warm/Dry Results/Procedures Lab Patient resulted labs reviewed. Assessment/Plan Assessment and Plan Assess & Plan/Chief Complaint Metatstatic lung adenocarcinoma with bone metastases Pain of metastatic malignancy Dr Gil consulted, appreciate recs Add MS Contin Lortab and IV Morphine as needed Add bowel regimen Continue palliative radiation Palliative care consulted, appreciate assistance Pneumonia Continue zosyn Hematuria Catheter in place Dr Mayberry consulted, appreciate recs DVT ppx: SCDs Diagnosis/Problems Diagnosis/Problems (1) Pain due to malignant neoplasm metastatic to bone Status: Acute (2) Lung cancer metastatic to bone Status: Acute MALATHI FISHER MD Aug 25, 2020 16:13
[2020-08-25] MEDS ORDERED: ALPRAZolam 0.25 MG (XANAX) TAB PO PRN (16:15)
[2020-08-25] MEDS ORDERED: ONDANSETRON 4 MG/2 ML (SDV) Z0FRAN IV PRN (16:15)
[2020-08-25] MEDS ORDERED: ANTACID SUSP 30 ML UDC (MYLANTA) PO PRN (16:15)
[2020-08-25] MEDS ORDERED: diphenhydrAMINE 25 MG TAB (BENADRYL) PO PRN (16:15)
[2020-08-25] MEDS ORDERED: polyethylene glycoL POWDER 17 GM (MIRALAX) PACK PO PRN (16:15)
[2020-08-25] MEDS ORDERED: ONDANSETRON 4 MG (ZOFRAN) ORAL DISSOLVE TAB PO PRN (16:15)
[2020-08-25] MEDS ORDERED: BISACODYL 10 MG SUPP (DULCOLAX) PR PRN (16:15)
[2020-08-25 17:10] VITALS: BP 102/68
--- NOTE | 2020-08-25 17:24 | Progress Note ---
Standard Progress Note Progress Notes/Assess & Plan Date Seen by a Provider: Aug 25, 2020 Time Seen by a Provider: 17:19 Progress/Assessment & Plan 80-year-old male admitted to the hospital with worsening low back and hip pain. Patient was recently found to have a large left hemipelvis bony lesions during orthopedic evaluation. He completed staging studies as well as CT-guided biopsy of left hemipelvis which showed metastatic non-small cell lung cancer, adenocarcinoma subtype. Additional studies on the tumor specimen is pending. Patient started on palliative radiation therapy late last week. Increase in pain today as he did not have IV access through the day and did not receive any IV pain medications. He had a midline placed later this afternoon and also started on MS Contin 15 mg twice a day with oral pain medications as needed for breakthrough. Continues to have tendency for constipation. Did not receive radiation today as machine was down. He denied any hematuria today. Dr. Mayberry planning bedside cystoscopy soon. Continue current care. Once pain is under better control, started physical therapy for strengthening and ambulation. Once Next Gen Sequencing results are available, I will discuss about systemic treatment options. Will follow patient with you. LISBETH PALMER Aug 25, 2020 17:24
--- NOTE | 2020-08-25 17:29 | Progress Note - Urology ---
Progress Note-Urology Progress Notes/Assess & Plan Progress/Assessment & Plan URINE CLEAR HOLLI. PLAN CYSTOSCOPY TOMORROW (LOCAL BEDSIDE) FULLY EXPLAINED TO PATIENT Final Diagnosis GROSS HEMATURIA CHUCHO SANTANA MD Aug 25, 2020 17:29
[2020-08-25] MEDS: SENNOSIDES 8.6 MG (SENOKOT) TAB PO SCH (20:44)
[2020-08-25] MEDS: DOCUSATE SODIUM 100 MG (COLACE) CAP PO SCH (20:44)
[2020-08-26] MEDS: RT-ALBUTEROL/IPRATROPIUM 3 ML (DUONEB) VIAL INH SCH ×3 (04:04→23:30)
[2020-08-26 05:29] VITALS: BP 119/77
[2020-08-26] MEDS: HYDROcodone/APAP 10 MG/325 MG (LORTAB) TAB PO PRN ×2 (05:39→16:10)
--- NOTE | 2020-08-26 07:17 | Progress Note-Pre Operative ---
Pre-Operative Progress Note H&P Reviewed The H&P was reviewed, patient examined and no changes noted. Date Seen by Provider: Aug 26, 2020 Time Seen by Provider: 07:17 Date H&P Reviewed: Aug 26, 2020 Time H&P Reviewed: 07:17 Pre-Operative Diagnosis: GROSS HEMATURIA CHUCHO SANTANA MD Aug 26, 2020 07:17
--- NOTE | 2020-08-26 07:25 | Progress Note-Post Operative ---
Post-Operative Progess Note Surgeon (s)/Senior Core Java Developer (s) Surgeon CHUCHO SANTANA MD Senior Core Java Developer: NONE Pre-Operative Diagnosis GROSS HEMATURIA Post-Operative Diagnosis SAME Procedure & Operative Findings Date of Procedure 08/26/20 Procedure Performed/Findings CYSTOSCOPY Anesthesia Type LOCAL Estimated Blood Loss Estimated blood loss (mL): NONE Specimens/Packing Specimens Removed NONE Packing: NONE CHUCHO SANTANA MD Aug 26, 2020 07:25
[2020-08-26 08:00] VITALS: BP 105/58
[2020-08-26] MEDS: DOCUSATE SODIUM 100 MG (COLACE) CAP PO SCH ×2 (08:17→20:18)
[2020-08-26] MEDS: SENNOSIDES 8.6 MG (SENOKOT) TAB PO SCH ×2 (08:17→20:18)
[2020-08-26] MEDS: morphine ER 30 MG (MS CONTIN) TAB PO SCH ×2 (08:17→20:18)
--- NOTE | 2020-08-26 08:51 | NUR ---
Patient's son called this AM requesting to speak to the SHAKE TABLE OPERATOR regarding dropping off patient's phone. Family informed that they can leave belongings with staff at ED entrance and staff will bring it to the patient. Son stated " I'm going to be difficult, and I need the phone to go to the SHAKE TABLE OPERATOR not random staff, I've had problems with hospital communication and random staff calling me. I am a trump supporter so I will get what I want at the end of the day". Son informed once again that belongings for all patients are dropped off with ED staff CEOs don't get involved in that, son was asked who told him to contact a SHAKE TABLE OPERATOR. Son stated he did not remember who had called him but that he would try to figure it out and call again later.
[2020-08-26] MEDS ORDERED: LIDOCAINE UROJET 2% GEL 10 ML PKG ONE (09:18)
--- NOTE | 2020-08-26 09:30 | NUR ---
Patients cell phone and telesales advisor taken into the room after Genaro brought it to the hospital. This RN informed patient that Genaro said to tell him he loved him. This RN offered to setup a video chat with Genaro. Patient declined offer for video chat at this time. I called Genaro and informed him that the cell phone was delivered to the room and that the patient did not wish to video chat at this time.
--- NOTE | 2020-08-26 10:01 | NUR ---
PALLIATIVE CARE RN in to see patient. He is alert, oriented and very much insistent on no having the bedside cystoscopy....he says "I already know I have cancer everywhere why do I need to do this?" Patient does not appear to be in as much pain as previously and even reports this as so. He again denies wanting to do further treatment with chemotherapy and radiation and in wanting to talk to his family about that himself. He does not want this RN to call his son to discuss. Again...patient does not want to be treated aggressively, he wants to lay in bed "and croak". He reports getting very agitated with his NO not being accepted as NO.
--- NOTE | 2020-08-26 10:20 | NUR ---
CO2 monitor registering O2 at 70%-80% and heart rate 160bpm, patient not complaining of SOB or trouble breathing at this time. Social work at bedside asking this RN why patient's oxygen was turned off. SW was informed that patient has never on oxygen only CO2 monitoring. Stats were checked again at this time on a vital cart machine by this RN per vital cart machine patient is stating 93-95% O2 heart rate at 40bpm. new finger O2 monitor applied and CO2 machine now showing similar stats to vital cart. SW still at beside, patient stated he wants to be left alone at this time, will check back in soon.
--- NOTE | 2020-08-26 12:00 | NUR ---
Doctor Jeffery at bedside talked to patient regarding need for radiation. patient agreed to radiation and instructed this RN to give patient a dosage of IV morphine at this time and notify radiation Nurse so that patient can go to radiation. also instructed this RN to DC PRN Ativan as that order was supposed to only be a onetime order and patient does not need it at this time.
[2020-08-26] MEDS: morphine INJ 4 MG/ML 1 ML (VIAL/SYRINGE) IV PRN (12:11)
--- NOTE | 2020-08-26 12:23 | NUR ---
radiation nurse notified of want for radiation at this time per Dr collins and last dosage of pain medication given
--- NOTE | 2020-08-26 14:17 | NUR ---
Clinical updated faxed at this time to [facility] for continued authorization request of swing bed. Await their determination.
--- NOTE | 2020-08-26 14:42 | Progress Note - Hospitalist ---
Subjective HPI/CC On Admission Date Seen by Provider: Aug 26, 2020 Time Seen by Provider: 10:20 Subjective/Events-last exam He says that he does not want to do this anymore. He does not want to get chemotherapy. He doesn't want any treatment for his cancer. He just wants to be treated for his symptoms. He is still having pain but he feels it is better controlled. He is also feeling anxious. Objective Exam Vital Signs Vital Signs Date Time Temp Pulse Resp B/P (MAP) Pulse Ox O2 Delivery O2 Flow Rate FiO2 08/26/20 09:00 96 Room Air 08/26/20 08:00 36.0 117 12 105/58 (74) 08/26/20 07:40 0.00 Capillary Refill : Less Than 3 Seconds General Appearance: Anxious, Chronically ill Respiratory: Normal Breath Sounds, No Respiratory Distress Cardiovascular: Regular Rate, Rhythm, No Edema, No Murmur Gastrointestinal: Normal Bowel Sounds, Non Tender, Soft Extremity: Normal Inspection, Non Tender, No Pedal Edema Neurologic/Psychiatric: Alert, Oriented x3, No Motor/Sensory Deficits, Depressed Affect Skin: Normal Color, Warm/Dry Results/Procedures Lab Patient resulted labs reviewed. Imaging: Reviewed Imaging Report Assessment/Plan Assessment and Plan Assess & Plan/Chief Complaint Metatstatic lung adenocarcinoma with bone metastases Pain of metastatic malignancy Dr Gil consulted, appreciate recs Increasing MS Contin Lortab and IV Morphine as needed Bowel regimen Palliative radiation Palliative care consulted, appreciate assistance Patient planning to discuss options with family prior to making final decision regarding hospice Pneumonia Continue Zosyn Hematuria Catheter in place Dr Mayberry consulted, appreciate recs DVT ppx: SCDs Diagnosis/Problems Diagnosis/Problems (1) Pain due to malignant neoplasm metastatic to bone Status: Acute (2) Lung cancer metastatic to bone Status: Acute (3) PNA (pneumonia) Status: Acute MALATHI FISHER MD Aug 26, 2020 14:41
--- NOTE | 2020-08-26 15:54 | NUR ---
Pt returned from Radiation treatment and states he feels alright and plans to continue treatments.Providing pt supportive contacts.
--- NOTE | 2020-08-26 18:48 | Progress Note ---
Standard Progress Note Progress Notes/Assess & Plan Date Seen by a Provider: Aug 26, 2020 Time Seen by a Provider: 18:43 Progress/Assessment & Plan 80-year-old male admitted to the hospital with worsening low back and hip pain. Patient was recently found to have a large left hemipelvis bony lesions during orthopedic evaluation. He completed staging studies as well as CT-guided biopsy of left hemipelvis which showed metastatic non-small cell lung cancer, adenocarcinoma subtype. Additional studies on the tumor specimen is pending. Patient started on palliative radiation therapy last but refused treatment on Tuesday. The machine was down on Tuesday and he did not receive radiation. I had extensive discussion with the patient in the presence of his nurse today and informed him that radiation therapy is palliative and for pain control. He was agreeable to continue radiation therapy. Advise a nurse to use parenteral morphine 15 minutes prior to transport for radiation therapy. He tolerated radiation therapy today and pain is under better control. Continues to have tendency for constipation. Once pain is under better control, start physical therapy for strengthening and ambulation. Once Next Gen Sequencing results are available, I will discuss about systemic treatment options. Will fo llow patient with you. LISBETH PALMER Aug 26, 2020 18:47
[2020-08-26 19:41] VITALS: BP 116/64
[2020-08-27] MEDS: morphine INJ 4 MG/ML 1 ML (VIAL/SYRINGE) IV PRN ×4 (02:54→15:14)
[2020-08-27] MEDS: HYDROcodone/APAP 10 MG/325 MG (LORTAB) TAB PO PRN ×3 (06:17→15:59)
[2020-08-27 08:00] VITALS: BP 111/76
[2020-08-27] MEDS: DOCUSATE SODIUM 100 MG (COLACE) CAP PO SCH ×2 (08:01→20:15)
[2020-08-27] MEDS: morphine ER 30 MG (MS CONTIN) TAB PO SCH ×2 (08:01→20:15)
[2020-08-27] MEDS: SENNOSIDES 8.6 MG (SENOKOT) TAB PO SCH ×2 (08:01→20:15)
[2020-08-27] MEDS: RT-ALBUTEROL/IPRATROPIUM 3 ML (DUONEB) VIAL INH SCH ×2 (10:30→19:01)
--- NOTE | 2020-08-27 13:11 | Progress Note - Hospitalist ---
Subjective HPI/CC On Admission Date Seen by Provider: Aug 27, 2020 Time Seen by Provider: 10:45 Subjective/Events-last exam He says his pain is better controlled. He is still having pain. He had his radiation. He denies any trouble breathing. He denies any other complaints or concerns. Objective Exam Vital Signs Vital Signs Date Time Temp Pulse Resp B/P (MAP) Pulse Ox O2 Delivery O2 Flow Rate FiO2 08/27/20 10:30 96 Room Air 08/27/20 08:00 36.2 102 23 111/76 (88) 08/26/20 07:40 0.00 Capillary Refill : Less Than 3 Seconds General Appearance: No Apparent Distress, Chronically ill Respiratory: Lungs Clear, Normal Breath Sounds, No Respiratory Distress Cardiovascular: Regular Rate, Rhythm, No Edema, No Murmur Gastrointestinal: Normal Bowel Sounds, Non Tender, Soft Extremity: Normal Inspection, Non Tender, No Pedal Edema Neurologic/Psychiatric: Alert, Oriented x3, No Motor/Sensory Deficits, Normal Mood/Affect Skin: Normal Color, Warm/Dry Results/Procedures Lab Patient resulted labs reviewed. Imaging: Reviewed Imaging Report Assessment/Plan Assessment and Plan Assess & Plan/Chief Complaint Metatstatic lung adenocarcinoma with bone metastases Pain of metastatic malignancy Dr Gil consulted, appreciate recs Continue MS Contin Lortab and IV Morphine as needed Bowel regimen Palliative radiation Palliative care consulted, appreciate assistance Hematuria Catheter in place Dr Mayberry consulted, appreciate recs DVT ppx: SCDs Pneumonia, resolved Diagnosis/Problems Diagnosis/Problems (1) Pain due to malignant neoplasm metastatic to bone Status: Acute (2) Lung cancer metastatic to bone Status: Acute (3) PNA (pneumonia) Status: Resolved Resolution Date/Time: 08/27/20 @ 13:11 MALATHI FISHER MD Aug 27, 2020 13:11
--- NOTE | 2020-08-27 14:10 | Physical Therapy Progress Note ---
Therapy Progress Note Patient is now SWB. Order for PT evaluation received. Patient refuses to participate at this time. Patient states he is willing to do PT but not today, he says he will participate in the morning. Patient has no complaints of pain. He says he has been getting out of bed for testing and chemo mostly and is able to transfer to a with a little assistance, nursing confirms this. Will check back with patient in the morning. LEILA TONEY PT Aug 27, 2020 14:10
--- NOTE | 2020-08-27 14:18 | Occ Therapy Progress Note ---
Therapy Progress Note OT order received. Chart reviewed. Attempted treatment with pt. Pt. asleep in bed, and is difficult to wake. He does wake up though, and declines all attempts at movement and evaluation. OT/PT educate pt. on purpose of new eval, to gain strength, and pt. states that he might work with therapy in a.m. Attempted treatment last week, with poor involvement and ability of pt. Pt. discharged at that time from therapy services. Spoke with SWB coordinator and pt. is feeling better, receiving radiation treatment, and would like to discharge home. Will attempt treatment again in a.m. Spoke with nursing who does confirm pt. is transferring, one person assist, to chair and commode. Educated pt. that therapy would like to continue encouraging his ability to transfer independently so that he can go home when medically ready, as per his wish. Pt. verbalizes understanding, but still would like to attempt in a.m. 1, visit [id number] MARVIN MAGUIRE OT Aug 27, 2020 14:18
--- NOTE | 2020-08-27 18:30 | NUR ---
Patients son Genaro Varela called maintenance supervisor 2nd shift at this time and was very angry and aggressive. He is demanding to speak with "[employer] administration, SHRUTHI CHAMBERS OR KACI SALAZAR by 10 am or I will be up there at 10:10am and it's not going to be pretty." He is upset because he has not been "communicated with like I should and I haven't been able to facetime my father and YOU SAID YOU WOULD SET THAT UP AND YOU HAVE FAILED AND NOW IM PISSED." I offered to help him by giving him information on his fathers condition or assisting his father with facetime at this time and he declined saying he's too pissed off to talk. I informed Genaro that I could not guarantee a phone call or time from administration tomorrow, but that I would pass the information to Diane Grande and to the linux system administrator extension worker. He states that he plans to call the police on himself if he has to come here so they can be here and keep him "in check." Rashaad Caruso, admin extension worker and Diane Grande notified.
--- NOTE | 2020-08-27 18:57 | NUR ---
This RN to room to ask patient if he would like to facetime son at this time. He stated he was too tired and didn't want to facetime this evening and maybe would try in the morning.
[2020-08-27 19:37] VITALS: BP 127/70
[2020-08-27] MEDS: MELATONIN 3 MG TABLET PO PRN (20:15)
[2020-08-28] MEDS: HYDROcodone/APAP 10 MG/325 MG (LORTAB) TAB PO PRN ×5 (00:32→19:43)
[2020-08-28] MEDS: SENNOSIDES 8.6 MG (SENOKOT) TAB PO SCH ×2 (07:50→21:04)
[2020-08-28] MEDS: DOCUSATE SODIUM 100 MG (COLACE) CAP PO SCH ×2 (07:50→21:04)
[2020-08-28] MEDS: RT-ALBUTEROL/IPRATROPIUM 3 ML (DUONEB) VIAL INH SCH ×2 (07:50→21:41)
[2020-08-28 08:00] VITALS: BP 97/58
[2020-08-28] MEDS: morphine ER 30 MG (MS CONTIN) TAB PO SCH ×2 (08:02→21:04)
[2020-08-28] MEDS: morphine ER 15 MG (MS CONTIN) TAB PO SCH ×2 (08:04→21:04)
--- NOTE | 2020-08-28 08:31 | NUR ---
Contacted pt's son who apparently very upset about not being able to get through our switchboard and locate pt or his nurse. Plans to talk to the Clinical Director today. Also explained to son because pt has been dealing with severe hip pain he has asked that his family not be contacted nor has he been feeling up to face timing his family.Explained that pt was currently feeling better and is receiving the radiation treatments.
--- NOTE | 2020-08-28 08:45 | NUR ---
Visited with patient this morning to see how he is feeling. He is sitting up in bed awake, waves and smiles at me when I enter the room. He reports that he is feeling better. When asked about his pain he reports that he always has pain but does feel like the radiation treatments and medications we are giving him is helping him with that.
--- NOTE | 2020-08-28 08:52 | NUR ---
RADIATION TREATMENT #4 OF 10 DELIVERED AT 8:52 AM.
--- NOTE | 2020-08-28 10:00 | Physical Therapy Evaluation ---
PT Evaluation-General Medical Diagnosis Admission Date Aug 22, 2020 at 10:54 Medical Diagnosis: metastatic cancer to bone Onset Date: Aug 22, 2020 Therapy Diagnosis Therapy Diagnosis: generalized weakness/debility Height/Weight Height (Feet): 5 Height (Inches): 9.00 Weight (Pounds): 171 Weight (Ounces): 0.0 Precautions Precautions/Isolations: Fall Prevention, Standard Precautions Referral Physician: Adithya Reason for Referral: Evaluation/Treatment Medical History Additional Medical History metastatic cancer to bone Current History SWB status Reviewed History: Yes Prior Prior Level of Function SCALE: Activities may be completed with or without assistive devices. 8-Paduyuyfub-nbhesoa completes the activity by him/herself with no assistance from a helper. 5-Set-up or Clean-up Assistance-helper sets up or cleans up; patient completes activity. [place] assists only prior to or following the activity. 4-Supervision or Touching Assistance-helper provides verbal cues and/or touching/steadying and/or contact guard assistance as patient completes activity. Assistance may be provided throughout the activity or intermittently. 3-Partial/Moderate Assistance-helper does LESS THAN HALF the effort. [place] lifts, holds or supports trunk or limbs, but provides less than half the effort. 2-Substantial/Maximal Assistance-helper does MORE THAN HALF the effort. [place] lifts or holds trunk or limbs and provides more than half the effort. 3-Rnfwxrqbl-hpkivm does ALL the effort. Patient does none of the effort to complete the activity. Or, the assistance of 2 or more helpers is required for the patient to complete the activity. If activity was not attempted, code reason: 7-Patient Refused. 9-Not Applicable-not attempted and the patient did not perform the activity before the current illness, exacerbation or injury. 10-Not Attempted due to Environmental Limitations-(lack of equipment, weather restraints, etc.). 88-Not Attempted due to Medical Conditions or Safety Concerns. Bed Mobility: 6 Transfers (B,C,W/C): 6 Gait: 6 Stairs: 6 Wheelchair Mobility: 9 Indoor Mobility (Ambulation): Independent Stairs: Independent PT Evaluation-Current Subjective Patient is in bed and having difficulty following simple direction. Patient reports patient is better but is unable to rate or report location. Objective Patient Orientation: Confused ROM/Strength ROM Lower Extremities bilateral LE limited due to hip pain Strength Lower Extremities 3-/5 grossly bilateral LE (not formally tested due to inability to follow direction and pain) Integumentary/Posture Integumentary refer to nursing notes Bowel Incontinence: Yes Bladder Incontinence: Davies Cath Posture kyphotic Neuromuscular (Tone, Coordination, Reflexes) severely diminished coordination due to weakness Sensory Vision: Functional Hearing: Impaired Sensation Right Lower Extremit: Impaired Sensation Left Lower Extremity: Impaired Transfers Roll Left & Right (QC): 1 Sit to Lying (QC): 1 Lying to Sitting/Side of Bed(Q: 1 Sit to Stand (QC): 2 Chair/Wht-tf-Antvl Xfer(QC): 7 (due to pain (unable to report location)) Toilet Transfer (QC): 7 (due to pain) Car Transfer (QC): 88 Gait Does the Patient Walk?: No and Walking Goal NOT indicated Walk 10 feet (QC): 88 Walk 50 ft with 2 Turns(QC): 88 Walk 150 ft (QC): 88 Walking 10ft/uneven surface-QC: 88 Wheelchair Training Does the Pt Use a Wheelchair?: No Wheel 50 ft with 2 turns (QC): 9 Wheel 150 ft (QC): 9 Stairs 1 Step (curb) (QC): 88 4 Steps (QC): 88 12 Steps (QC): 88 Balance Sitting Static: Fair Sitting Dynamic: Fair Standing Static: Poor Standing Dynamic: Poor Picking up an Object (QC): 88 (due to pain) Treatment Patient was able to stand to FWW and take 3 side steps before ceasing treatment due to pain and fatigue. Patient reports pain but unable to report location. Assessment/Needs 80 y.o. male, will be seen by PT to address functional strength and mobility to improve current LOF. Patient does have metastatic cancer to bone and is receiving palliative radiation per report. Rehab Potential: Poor PT Usp Goals Usp Goals PT Usp Goals Time Frame: Sep 13, 2020 Roll Left & Right (QC): 3 Sit to Lying (QC): 3 Lying-Sitting on Side/Bed(QC): 3 Sit to Stand (QC): 3 Chair/Pyc-ml-Tawrt Xfer(QC): 3 Toilet Transfer (QC): 3 Car Transfer (QC): 3 Does the Patient Walk: No and Walking Goal NOT indicated Walk 10 feet (QC): 3 Walk 50ft with 2 Turns (QC): 88 (due to metastatic bone cancer and contraindications) Walk 150 ft (QC): 88 (due to metastatic bone cancer and contraindications) Walking 10ft on Uneven Surface: 88 (due to metastatic bone cancer and contraindications) 1 Step (curb) (QC): 88 (due to metastatic bone cancer and contraindications) 4 Steps (QC): 88 (due to metastatic bone cancer and contraindications) 12 Steps (QC): 88 (due to metastatic bone cancer and contraindications) Picking up an Object (QC): 88 (due to metastatic bone cancer and contraindications) Does the Pt use WC or Scooter?: Yes Wheel 50 feet with 2 turns (QC: 2 Type: Manual Wheel 150 feet: 2 Type: Manual PT Plan Problem List Problem List: Activity Tolerance, Functional Strength, Safety, Balance, Gait, Transfer, Bed Mobility, ROM Treatment/Plan Treatment Plan: Continue Plan of Care Treatment Plan: Bed Mobility, Education, Functional Activity Osiel, Functional Strength, Gait, Safety, Therapeutic Exercise, Transfers Treatment Duration: Sep 13, 2020 Frequency: 6 times per week Estimated Hrs Per Day: .25 hour per day Time/GCodes Time In: 926 Time Out: 949 Total Billed Treatment Time: 23 Total Billed Treatment 1 visit EVModC 8 min FA 15 min WENDY GOEL PT Aug 28, 2020 10:00
--- NOTE | 2020-08-28 14:26 | Progress Note - Hospitalist ---
Subjective HPI/CC On Admission Date Seen by Provider: Aug 28, 2020 Time Seen by Provider: 08:40 Subjective/Events-last exam He continues to have pain. He says he will work with therapy today. He is going down for radiation now. Objective Exam Vital Signs Vital Signs Date Time Temp Pulse Resp B/P (MAP) Pulse Ox O2 Delivery O2 Flow Rate FiO2 08/28/20 08:00 36.4 90 20 97/58 (71) 97 Room Air 08/26/20 07:40 0.00 Capillary Refill : Less Than 3 Seconds General Appearance: No Apparent Distress, Chronically ill Respiratory: Lungs Clear, Normal Breath Sounds, No Respiratory Distress Cardiovascular: Regular Rate, Rhythm, No Edema, No Murmur Gastrointestinal: Normal Bowel Sounds, Non Tender, Soft Extremity: Normal Inspection, Non Tender, No Pedal Edema Neurologic/Psychiatric: Alert, Oriented x3, No Motor/Sensory Deficits, Normal Mood/Affect Skin: Normal Color, Warm/Dry Results/Procedures Lab Patient resulted labs reviewed. Imaging: Reviewed Imaging Report Assessment/Plan Assessment and Plan Assess & Plan/Chief Complaint Metatstatic lung adenocarcinoma with bone metastases Pain of metastatic malignancy Dr Gil consulted, appreciate recs Increase MS Contin Lortab and IV Morphine as needed Bowel regimen Palliative radiation Palliative care consulted, appreciate assistance Hematuria Catheter in place Refused cystoscopy Dr Mayberry consulted, appreciate recs DVT ppx: SCDs Pneumonia, resolved Diagnosis/Problems Diagnosis/Problems (1) Pain due to malignant neoplasm metastatic to bone Status: Acute (2) Lung cancer metastatic to bone Status: Acute (3) PNA (pneumonia) Status: Resolved Resolution Date/Time: 08/27/20 @ 13:11 MALATHI FISHER MD Aug 28, 2020 14:26
[2020-08-28 14:37] VITALS: BP 97/58
--- NOTE | 2020-08-28 15:00 | Occupational Ther Daily Note ---
OT Current Status-Daily Note Subjective Pt. states that he needs to lay down quickly after sitting on side of bed. Reports significant fatigue. Appearance Pt. alert and oriented when OT entered room. He agrees with encouragement to work with OT. Mental Status/Objective Patient Orientation: Person ADL-Treatment Therapy Code Descriptions/Definitions Functional [place] Measure: 0=Not Assessed/NA 4=Minimal Assistance 1=Total Assistance 5=Supervision or Setup 2=Maximal Assistance 6=Modified [place] 3=Moderate Assistance 7=Complete IndependenceSCALE: Activities may be completed with or without assistive devices. 7-Acfvhrpdkz-dmlojqu completes the activity by him/herself with no assistance from a helper. 5-Set-up or Clean-up Assistance-helper sets up or cleans up; patient completes activity. [place] assists only prior to or following the activity. 4-Supervision or Touching Assistance-helper provides verbal cues and/or touching/steadying and/or contact guard assistance as patient completes activity. Assistance may be provided throughout the activity or intermittently. 3-Partial/Moderate Assistance-helper does LESS THAN HALF the effort. [place] lifts, holds or supports trunk or limbs, but provides less than half the effort. 2-Substantial/Maximal Assistance-helper does MORE THAN HALF the effort. [place] lifts or holds trunk or limbs and provides more than half the effort. 2-Sdfbvrdru-rcoysf does ALL the effort. Patient does none of the effort to complete the activity. Or, the assistance of 2 or more helpers is required for the patient to complete the activity. If activity was not attempted, code reason: 7-Patient Refused. 9-Not Applicable-not attempted and the patient did not perform the activity before the current illness, exacerbation or injury. 10-Not Attempted due to Environmental Limitations-(lack of equipment, weather restraints, etc.). 88-Not Attempted due to Medical Conditions or Safety Concerns. On/Off Footwear: 1 OT ganga completed this date. Pt. in bed and agrees to participate with encouragement. Pt. states that he is going home with family, but that he doesn't know the situation yet. Pt. transfers supine-sit with mod assist. Pt. encouraged to attempt moving LE himself, but states, "I need help." OT brings bilateral LE to side of bed, and pt. can pull himself to side with upper body. Pt. agrees to UE exercises, but states that he "can't do much." Pt. does engage in 3 bilateral exercises, x 5 reps each. After the third exercise he lays self down, but tells OT to put his feet into bed. OT does this, and pt. is able to pull himself to comfortable position. Pt. is asked if he is having pain, and is that why he laid down so quickly. He states, "no, I'm just tired." All needs are met in room. Education OT Patient Education: Correct positioning, Exercise program, Progress toward Goal/Update tx plan, Purpose of tx/functional activities, Reviewed precautions, Rehab process, Transfer techniques Teaching Recipient: Patient Teaching Methods: Demonstration, Discussion Response to Teaching: Verbalize Understanding, Return Demonstration, Reinforcement Needed OT Marine Architect Goals Marine Architect Goals Time Frame: Sep 11, 2020 Eating (QC): 5 Oral Hygiene (QC): 4 Toileting Hygiene (QC): 3 Shower/Bathe Self (QC): 88 (No goal indicated at this time.) Upper Body Dressing (QC): 4 Lower Body Dressing (QC): 88 On/Off Footwear (QC): 3 Additional Goals: 1-Demonstrate ADL Tasks, 2-Verbalize Understanding, 3- ImproveStrength/Os[place] 1=Demonstrate adherence to instructed precautions during ADL tasks. 2=Patient will verbalize/demonstrate understanding of assistive devices/modifications for ADL. 3=Patient will improve strength/tolerance for activity to enable patient to perform ADL's. OT Education/Plan Treatment Plan/Plan of Care Patient would benefit from OT for education, treatment and training to promote independence in ADL's, mobility, safety and/or upper extremity function for ADL's. Rehab Potential: MARVIN Rolle OT Aug 28, 2020 15:00
--- NOTE | 2020-08-28 15:10 | Occupational Therapy Eval ---
OT Evaluation-General/PLF Medical Diagnosis Admission Date Aug 22, 2020 at 10:54 Medical Diagnosis: metastatic cancer to bone Onset Date: Aug 22, 2020 Therapy Diagnosis Therapy Diagnosis: Weakness Height/Weight Height (Feet): 5 Height (Inches): 9.00 Weight (Pounds): 171 Weight (Ounces): 0.0 Precautions Precautions/Isolations: Fall Prevention, Standard Precautions Referral Physician: Adithya Referral Reason: Activity Tolerance, Self Care, Evaluation/Treatment, Strengthening/ROM Medical History Additional Medical History Lung CA, bony METS Current History Pt. currently receiving radiation. Goal is to go home with family per pt. Reviewed History: Yes ADL-Prior Level of Function SCALE: Activities may be completed with or without assistive devices. 2-Uoyfxxlzgb-iyxpbfa completes the activity by him/herself with no assistance from a helper. 5-Set-up or Clean-up Assistance-helper sets up or cleans up; patient completes activity. [place] assists only prior to or following the activity. 4-Supervision or Touching Assistance-helper provides verbal cues and/or touching/steadying and/or contact guard assistance as patient completes activity. Assistance may be provided throughout the activity or intermittently. 3-Partial/Moderate Assistance-helper does LESS THAN HALF the effort. [place] lifts, holds or supports trunk or limbs, but provides less than half the effort. 2-Substantial/Maximal Assistance-helper does MORE THAN HALF the effort. [place] lifts or holds trunk or limbs and provides more than half the effort. 8-Oqzedlbko-gundlz does ALL the effort. Patient does none of the effort to complete the activity. Or, the assistance of 2 or more helpers is required for the patient to complete the activity. If activity was not attempted, code reason: 7-Patient Refused. 9-Not Applicable-not attempted and the patient did not perform the activity before the current illness, exacerbation or injury. 10-Not Attempted due to Environmental Limitations-(lack of equipment, weather restraints, etc.). 88-Not Attempted due to Medical Conditions or Safety Concerns. ADL PLOF Comments Pt. reports that his son was assisting him with bathing/dressing previous to this hospitalization. Self Care: Needed Some Help Functional Cognition: Unknown OT Current Status Subjective Pt. in bed. Alert and oriented. Agrees to work with OT with encouragement. Mental Status/Objective Patient Orientation: Person Attachments: Davies Catheter, Oxygen Current Upper Extremity ROM WFL ADL-Treatment Eating (QC): 88 Oral Hygiene (QC): 7 Shower/Bathe Self (QC): 9 Upper Body Dressing (QC): 7 Lower Body Dressing (QC): 7 On/Off Footwear (QC): 1 Toileting Hygiene (QC): 1 Other Treatments Pt. in bed. OT re-introduces self. Pt. agrees to work with OT, but briefly. Transfers supine-sit with mod assist. Pt. verbalizes that OT will need to move his legs for him. Pt. is able to pull self to side with UE. Once on side of bed, pt. participated in bilateral UE exercises x 5 reps each with max encouragement. Pt. verbalizes he understands the need for therapy, but is very tired. He verbalizes that he is going to stay with his son, but does not know all the details. After 3 exercises, pt begins to lay himself down and insists for OT to get his legs into bed. OT does this, and asks if pt. is having pain. Pt. verbalizes that he is not, he is just tired. Pt. declines further treatment. All needs met, and pt. is able to pull himself into comfortable position in bed. Education OT Patient Education: Correct positioning, Exercise program, Modified ADL techniques, Progress toward Goal/Update tx plan, Purpose of tx/functional activities, Reviewed precautions, Rehab process, Transfer techniques Teaching Recipient: Patient Teaching Methods: Demonstration, Discussion Response to Teaching: Verbalize Understanding, Return Demonstration, Reinforcement Needed OT Speed Belt Sander Goals [facility] Goals Time Frame: Sep 11, 2020 Eating (QC): 5 Oral Hygiene (QC): 4 Toileting Hygiene (QC): 3 Shower/Bathe Self (QC): 88 Upper Body Dressing (QC): 4 Lower Body Dressing (QC): 3 On/Off Footwear (QC): 3 Additional Goals: 1-Demonstrate ADL Tasks, 2-Verbalize Understanding, 3- ImproveStrength/Osiel 1=Demonstrate adherence to instructed precautions during ADL tasks. 2=Patient will verbalize/demonstrate understanding of assistive devices/modifications for ADL. 3=Patient will improve strength/tolerance for activity to enable patient to perform ADL's. OT Education/Plan Problem List/Assessment Assessment: Decreased Activ Tolerance, Decreased UE Strength, Dependent Transfers, Impaired Bed Mobility, Impaired Funct Balance, Impaired I ADL's, Impaired Self-Care Skills Discharge Recommendations Plan/Recommendations: Continue POC Therapy Discharge Recommendati: 24 Hour Supervision Treatment Plan/Plan of Care Treatment,Training & Education: Yes Patient would benefit from OT for education, treatment and training to promote independence in ADL's, mobility, safety and/or upper extremity function for ADL's. Plan of Care: ADL Retraining, Functional Mobility, UE Funct Exercise/Act Treatment Duration: Sep 11, 2020 Frequency: 5 times per week Estimated Hrs Per Day: .25 hour per day Agreement: Yes Rehab Potential: Poor Time/GCodes Start Time: 11:00 Stop Time: 11:15 Total Time Billed (hr/min): 15 Billed Treatment Time 1, MARVIN MALONE OT Aug 28, 2020 15:10
--- NOTE | 2020-08-28 15:45 | NUR ---
Met with pt and his son Genaro with the assistance of Diane Fourth Floor Nurse College Physics Instructor. Pt and son were able to communicate and son discussed his frustration to not being able to talk to pt who was also able to tell son that due to his pain level he hasn't felt like talking with family or even face-timing. Son stated he understood and advised pt that he wouldn't need to go to a penitentiary as he and his are committed to his care at his home when discharged. Son discussed End of Life issues with patient and both seemed pleased with the opportunity to visit. will follow
--- NOTE | 2020-08-28 18:01 | Progress Note ---
Standard Progress Note Progress Notes/Assess & Plan Date Seen by a Provider: Aug 28, 2020 Time Seen by a Provider: 17:59 Progress/Assessment & Plan 80-year-old male admitted to the hospital with worsening low back and hip pain. Patient was recently found to have a large left hemipelvis bony lesions during orthopedic evaluation. He completed staging studies as well as CT-guided biopsy of left hemipelvis which showed metastatic non-small cell lung cancer, adenocarcinoma subtype. Additional studies on the tumor specimen is pending. He is on palliative radiation therapy and pain is under better control. Pain medications are being titrated also. Continues to have tendency for constipation. Started occupational therapy today and worked on upper body strengthening. Once pain is better controlled, try ambulation. Once Next Gen Sequencing results are available, I will discuss about systemic treatment options. Will follow patient with you. LISBETH PALMER Aug 28, 2020 18:01
--- NOTE | 2020-08-28 19:20 | NUR ---
at 1400 patient was offered to call family and facetime with carmen - refused stated would rather talk to them in the morning, this evening carmen called wanting to face time with dad, this nurse assisted patient with face time with son left son and father visiting , after report went checked on patient done with tablet and tablet was returned to the dr angel, night nurse given reported and instructions to how the son and the father can face time each other whenever they wanted to visit with each other
[2020-08-28 19:53] VITALS: BP 117/67
[2020-08-28] MEDS: MELATONIN 3 MG TABLET PO PRN (21:04)
[2020-08-29] MEDS: HYDROcodone/APAP 10 MG/325 MG (LORTAB) TAB PO PRN ×4 (01:20→16:10)
[2020-08-29] MEDS: morphine INJ 4 MG/ML 1 ML (VIAL/SYRINGE) IV PRN ×2 (04:17→08:19)
[2020-08-29] MEDS: RT-ALBUTEROL/IPRATROPIUM 3 ML (DUONEB) VIAL INH SCH ×2 (07:21→16:59)
[2020-08-29 08:00] VITALS: BP 132/81
--- NOTE | 2020-08-29 08:00 | NUR ---
AWAKE AND ALERT AND DRINKING ENSURE. ASKED IF HE WOULD LIKE TO CALL SON, BUT DECLINED. MS 2MG IV PRIOR TO TRANSFER TO RADIATION ONCOLOGY.
[2020-08-29] MEDS: SENNOSIDES 8.6 MG (SENOKOT) TAB PO SCH ×2 (08:20→19:37)
[2020-08-29] MEDS: morphine ER 30 MG (MS CONTIN) TAB PO SCH ×2 (08:20→20:34)
[2020-08-29] MEDS: DOCUSATE SODIUM 100 MG (COLACE) CAP PO SCH ×2 (08:20→20:34)
[2020-08-29] MEDS: morphine ER 15 MG (MS CONTIN) TAB PO SCH (08:20)
--- NOTE | 2020-08-29 09:52 | NUR ---
Authorization received at this time for continued stay. 7 additional days are approved and next review date is 09/02/20. Action Items that need to be sent with next review: 1. If member is being seen by OT, please provide the OT evaluation and therapy notes from within the last 48 hours on the next review. 2. Please identify availability of fmaily and level of assistance they can provide upon discharge, if any. 3. Please offer caregiver training and education with spouse/family prior to discharge if indicated (with utilization of phone calls, Face Time/Skype, and sharing educational videos). 4. Please identify equipment needs for safe discharge and order necessary equipment to be in place upon discharge. 5. If unable to ambulate household distances at discharge, please clarify whether home is wheelchair accessible.
--- NOTE | 2020-08-29 11:02 | NUR ---
LORTAB 10 PO FOR PAIN. AGAIN DECLINED CALLING SON.
--- NOTE | 2020-08-29 11:05 | Physical Therapy Progress Note ---
Therapy Progress Note Pt in bed, declines to participate with PT. "I had my treatment this morning and I just can't today." Denied pain, "Just worn out". Pt declined PT attempt in PM; "Let's try for tomorrow". NOHELIA FERRER DPT Aug 29, 2020 11:05
--- NOTE | 2020-08-29 12:29 | NUR ---
ADMINISTRATION AT BEDSIDE ASSISTING WITH VIDEO CHAT WITH SON. POOR CONNECTION. PT ABLE TO VISIT WITH SON VIA PHONE. Addendum: 08/29/20 at 1241 by LYNNE RAMSEY RN JEFFERSON LEMA)
--- NOTE | 2020-08-29 13:24 | NUR ---
Pt's son Mnaan Williamson contacted this social work specialist and requested a in-person visit with his father and 3 siblings. Advised son that due to the pandemic visitations physical visits by family were restricted. Son became very agitated and stated he wanted a meeting with his father in person by this afternoon. Met with Diane MARTINS and Medical slot manager who stated that we were unable to allow family visit but could offer video chat if pt willing. Fer continued to refuse any type of virtual visit with his father. Son also contacted the Livestock Speculator Vice-President of Pt Care Cecelia Tan who offered contact with pt's physician and virtual meeting with pt if agreeable with pt. She explained our pandemic visitor restriction policy. Son continued to be verbally aggressive with profanity and refused any type of virtual visit with pt only accepting physical visitation which remains restricted. This social work specialist and Diane MARTINS Medical-Manager Of Radiology met with pt who stated that he was willing to have a virtual visit with son and since son was on the phone he did try to virtually connect but due to poor connectivity it was changed to a phone call with pt and son talking for 10-15 minutes. Contacted pt's son again and discussed with pt's daughter the poor connection and whether we could set up a Zoom connection. Family continues to assist on in-person visit and indicated that pt wanted to be discharged home. Pt has stated that he wants to complete radiation treatments. Plans for discharge are tentatively planned for one week. Provided reassurance to the family that if there is any change in pt's condition we will contact them and they can continue to call us for further attempts to set up virtual as well as phone visits when pt is agreeable.
[2020-08-29] MEDS ORDERED: MILK OF MAGNESIA 400 MG/5 ML 30 ML UDC PO PRN (14:00)
--- NOTE | 2020-08-29 14:01 | Progress Note - Hospitalist ---
Subjective HPI/CC On Admission Date Seen by Provider: Aug 29, 2020 Time Seen by Provider: 10:25 Subjective/Events-last exam He says his pain is improving. He denies any worsening with movement. He has no complaints or concerns. Objective Exam Vital Signs Vital Signs Date Time Temp Pulse Resp B/P (MAP) Pulse Ox O2 Delivery O2 Flow Rate FiO2 08/29/20 09:00 94 Room Air 0.00 08/29/20 08:00 36.3 106 20 132/81 (98) 08/28/20 14:37 21 Capillary Refill : Less Than 3 SecondsLess Than 3 Seconds General Appearance: No Apparent Distress, Chronically ill, Thin Respiratory: Lungs Clear, Normal Breath Sounds, No Respiratory Distress Cardiovascular: Regular Rate, Rhythm, No Edema, No Murmur Gastrointestinal: Normal Bowel Sounds, Non Tender, Soft Extremity: Normal Inspection, Non Tender, No Pedal Edema Neurologic/Psychiatric: Alert, Oriented x3, No Motor/Sensory Deficits, Normal Mood/Affect Skin: Normal Color, Warm/Dry Results/Procedures Lab Patient resulted labs reviewed. Imaging: Reviewed Imaging Report Assessment/Plan Assessment and Plan Assess & Plan/Chief Complaint Metatstatic lung adenocarcinoma with bone metastases Pain of metastatic malignancy Dr Gil consulted, appreciate recs Increase MS Contin Lortab and IV Morphine as needed Bowel regimen Palliative radiation Palliative care consulted, appreciate assistance Hematuria Catheter in place Refused cystoscopy Dr Mayberry consulted, appreciate recs DVT ppx: SCDs Pneumonia, resolved Diagnosis/Problems Diagnosis/Problems (1) Pain due to malignant neoplasm metastatic to bone Status: Acute (2) Lung cancer metastatic to bone Status: Acute (3) PNA (pneumonia) Status: Resolved Resolution Date/Time: 08/27/20 @ 13:11 MALATHI FISHER MD Aug 29, 2020 14:01
[2020-08-29] MEDS: polyethylene glycoL POWDER 17 GM (MIRALAX) PACK PO SCH ×2 (14:22→19:37)
--- NOTE | 2020-08-29 14:32 | NUR ---
"RD ASSESSMENT PMHx: CA(metastatic lung, bladder), CAD, HTN PT INTERACTION: Pt was awake and pleasant during nutrition follow-up. Pt states he has been eating fair since last assessment. Note avg PO intake 25-50% of meals, per chart review. Pt states tolerating nutrition supplementation well at this time. Pt states no issues with nausea, vomiting, constipation, or diarrhea since last assessment. Note last BM was 08/27, and pt currently on bowel regimen of colace BID, and senna BID, per chart review. ABNORMAL NUTRITION-RELATED LAB VALUES No recent labs drawn at this time. Est. kcal needs: 3923-9223 kcal | 25-30 kcal/kg Est. Pro needs: 65-78 g Pro | 1.0-1.2 g Pro/kg PES STATEMENT: Inadequate oral intake (NI-2.1) related to loss of appetite as evidenced by pt interview and avg PO intake 25-50% meals. INTERVENTION: Continue with current diet order of DYS2 Mechanically Altered diet. Continue with current supplementation order of Ensure Enlive with meals TID, for increased kcal intake. Provides 350 kcal and 20 g Pro per serving. Will continue to follow and reassess as pt needs, intake, and status change. Talon Ozuna, MS RD LD"
--- NOTE | 2020-08-29 14:50 | Occ Therapy Progress Note ---
Therapy Progress Note Pt refused therapy, stating that he didn't want to get out of bed he was too tired. Pt also stated that he was going home today. Encouraged pt to participate in therapy educated pt on the benefits of therapy. 1-refusal GEMINI ORANTES Aug 29, 2020 14:50
--- NOTE | 2020-08-29 16:45 | NUR ---
Pt's daughter.Chelo Head, presented DPOA paperwork from [facility] which pt signed naming her as DPOA for Health Care. Copy placed in pt. chart. She also requested copies of pt's History and Physical, recent physician note,current medications and therapy evaluations, and consults. Pt signed Release of information and placed in chart. Pt's daughter lives in [place] but has been staying with pt providing him care prior to his cancer diagnosis. Chelo requesting information about continued care options and discussed continued home health care, hospice options, and home equipment needs when pt discharged home. Chelo requested an informational visit with [facility]. Contacted [facility] and they agreed to meet with her in hospital out-pt lobby. Chelo is a PROCTOLOGIST and has cared for several hospice patients and states she will be her father's primary caregiver when he is discharged.
[2020-08-29 19:01] VITALS: BP 118/55
[2020-08-30] MEDS: fentaNYL INJECTION 100 MCG/2 ML AMP IVP PRN ×2 (01:14→19:54)
[2020-08-30 08:00] VITALS: BP 120/82
[2020-08-30] MEDS: polyethylene glycoL POWDER 17 GM (MIRALAX) PACK PO SCH ×2 (09:32→21:24)
[2020-08-30] MEDS: SENNOSIDES 8.6 MG (SENOKOT) TAB PO SCH ×2 (09:32→21:29)
[2020-08-30] MEDS: DOCUSATE SODIUM 100 MG (COLACE) CAP PO SCH ×2 (09:32→21:24)
[2020-08-30] MEDS: morphine ER 30 MG (MS CONTIN) TAB PO SCH ×2 (09:32→21:24)
[2020-08-30] MEDS: morphine INJ 4 MG/ML 1 ML (VIAL/SYRINGE) IV PRN ×3 (11:02→22:19)
--- NOTE | 2020-08-30 13:01 | Physical Therapy Progress Note ---
Therapy Progress Note Pt. in bed, shakes his head and says "no, no, no" to all attempts of therapy. Pt. does request a Sprite and nursing ok'd to give. Pt. again refuses all attempts of exercise or sitting at edge of bed. We will return 09/01 to attempt PT. 1, 1963 DARRICK ROGEL PT Aug 30, 2020 13:01
[2020-08-30] MEDS: RT-ALBUTEROL/IPRATROPIUM 3 ML (DUONEB) VIAL INH SCH ×2 (17:47→20:32)
[2020-08-30 19:51] VITALS: BP 158/90
[2020-08-31] MEDS: morphine INJ 4 MG/ML 1 ML (VIAL/SYRINGE) IV PRN ×5 (05:08→21:10)
[2020-08-31] MEDS: HYDROcodone/APAP 10 MG/325 MG (LORTAB) TAB PO PRN ×2 (05:32→22:28)
[2020-08-31] MEDS: fentaNYL INJECTION 100 MCG/2 ML AMP IVP PRN (06:46)
[2020-08-31] MEDS: RT-ALBUTEROL/IPRATROPIUM 3 ML (DUONEB) VIAL INH SCH (07:15)
--- NOTE | 2020-08-31 07:27 | NUR ---
PT IS HAVING INCREASED SHORTNESS OF BREATH, VISIBLY WORKING HARD TO BREATHE. REQUIRING 4L OF O2 TO KEEP GREATER THAN 90%. PT LUNGS ARE VERY CRACKLY, CAN BE HEARD WHEN STANDING NEXT TO PT. MORPHINE HELPS A BIT. BUT PT STILL APPEARS TO STRUGGLE TO BREATHE, AND LOOKS MISERABLE. DR FISHER NOTIFIED OF THE ABOVE, THIS NURSE ASKED IF THERE WAS ANYTHING ELSE WE COULD GIVE TO HELP PT FEEL MORE COMFORTABLE, SAID TO GIVE THE MORPHINE FOR NOW, AND WILL REEVALUATE LATER.
[2020-08-31 08:00] VITALS: BP 155/87
[2020-08-31] MEDS: DOCUSATE SODIUM 100 MG (COLACE) CAP PO SCH ×2 (08:35→21:11)
[2020-08-31] MEDS: SENNOSIDES 8.6 MG (SENOKOT) TAB PO SCH ×2 (08:35→21:11)
[2020-08-31] MEDS: morphine ER 30 MG (MS CONTIN) TAB PO SCH ×2 (08:35→21:11)
[2020-08-31] MEDS: polyethylene glycoL POWDER 17 GM (MIRALAX) PACK PO SCH ×2 (08:36→21:06)
[2020-08-31 09:11] LABS: BASOPHILS # (AUTO) 0.1 10^3/uL (0.0-0.1); BASOPHILS % (AUTO) 0 % (0-10); EOSINOPHILS % (AUTO) 4 % (0-10); HEMATOCRIT 43 % (40-54); HEMOGLOBIN 13.4 g/dL (13.3-17.7); LYMPHOCYTES # (AUTO) 1.5 10^3/uL (1.0-4.0); LYMPHOCYTES % (AUTO) 6 % (12-44); MEAN CORPUSCULAR HEMOGLOBIN 29 pg (25-34); MEAN CORPUSCULAR HGB CONC 31 g/dL (32-36); MEAN CORPUSCULAR VOLUME 93 fL (80-99); MONOCYTES # (AUTO) 1.1 10^3/uL (0.0-1.0); MONOCYTES % (AUTO) 5 % (0-12); NEUTROPHILS # (AUTO) 19.5 10^3/uL (1.8-7.8); NEUTROPHILS % (AUTO) 81 % (42-75); PLATELET COUNT 232 10^3/uL (130-400)
[2020-08-31 09:20] LABS: POTASSIUM 5.8 MMOL/L (3.6-5.0)
[2020-08-31 09:21] LABS: CALCIUM 9.8 MG/DL (8.5-10.1)
[2020-08-31 09:25] LABS: CREATININE SERUM 1.3 MG/DL (0.60-1.30)
--- NOTE | 2020-08-31 09:45 | Diagnostic Imaging Report ---
INDICATION: Confused, dyspnea COMPARISON STUDY: Chest from August 19. FINDINGS: Increasing infiltrates are present in the left lower lobe. These obscure the previous left perihilar density. Mild infiltrates have developed in the right lung base. IMPRESSION: There are increasing pulmonary infiltrates. Dictated by: Dictated on workstation # [id number]
--- NOTE | 2020-08-31 10:06 | NUR ---
Son called this AM asking for an update. stated he tried to call the room phone but patient didn't answer. Son was notified that patient has phone in his bed but did not feel like talking this morning partly due to increased feeling of shortness of breathe. Son was notified that oxygen was initiated,labs were drawn, chest xray was performed, and patient received a bath this morning. Thanked this RN for update and stated he appreciated the medical side of care but he will be bringing patient home tomorrow on hospice. Son stated "he has been there long enough, it is time for patient to be at home"
[2020-08-31] MEDS: RT-ALBUTEROL/IPRATROPIUM 3 ML (DUONEB) VIAL INH PRN ×3 (10:59→19:19)
[2020-08-31] MEDS ORDERED: CEFEPIME INJECTION 1,000 MG in WATER (STERILE) FOR INJECTION 10 ML IV SCH ×2 (11:15→12:00)
[2020-08-31] MEDS ORDERED: SOD POLYSTERENE 15 GM/60 ML (KAYEXALATE) UNIT DOSE PO ONE (12:45)
[2020-08-31] MEDS ORDERED: LACTATED RINGERS 1,000 ML IV SCH (12:45)
--- NOTE | 2020-08-31 12:46 | Progress Note - Hospitalist ---
Subjective HPI/CC On Admission Date Seen by Provider: Aug 31, 2020 Time Seen by Provider: 10:45 Subjective/Events-last exam He is having more shortness of breath. He is having a cough. He denies fevers. He continues to have pain. Objective Exam Vital Signs Vital Signs Date Time Temp Pulse Resp B/P (MAP) Pulse Ox O2 Delivery O2 Flow Rate FiO2 08/31/20 09:00 94 Room Air 08/31/20 08:00 35.7 108 16 155/87 (109) 08/30/20 20:32 2.00 08/28/20 14:37 21 Capillary Refill : Less Than 3 SecondsLess Than 3 Seconds General Appearance: Anxious, Chronically ill, Mild Distress (tachypnea) Respiratory: Crackles, Respiratory Distress (tachypnea) Cardiovascular: Regular Rate, Rhythm, No Edema, No Murmur Gastrointestinal: Normal Bowel Sounds, Non Tender, Soft Extremity: Normal Inspection, Non Tender, No Pedal Edema Neurologic/Psychiatric: Alert, Oriented x3, No Motor/Sensory Deficits, Normal Mood/Affect Skin: Normal Color, Warm/Dry Results/Procedures Lab Laboratory Tests 08/31/20 09:00 Patient resulted labs reviewed. Imaging: Reviewed Imaging Report Assessment/Plan Assessment and Plan Assess & Plan/Chief Complaint Metatstatic lung adenocarcinoma with bone metastases Pain of metastatic malignancy Dr Gil consulted, appreciate recs Continue MS Contin Lortab and IV Morphine as needed Bowel regimen Palliative radiation Palliative care consulted, appreciate assistance Patient considering discharge on hospice Pneumonia s/p course of Zosyn Worsening dyspnea and cough Chest xray with worsening infiltrates Procalcitonin elevated Begin Cefepime Hematuria Catheter in place Refused cystoscopy Dr Mayberry consulted, appreciate recs DVT ppx: SCDs Pneumonia, resolved Diagnosis/Problems Diagnosis/Problems (1) Pain due to malignant neoplasm metastatic to bone Status: Acute (2) Lung cancer metastatic to bone Status: Acute (3) PNA (pneumonia) Status: Acute Qualifiers: Pneumonia type: due to unspecified organism Laterality: left Lung location: lower lobe of lung Qualified Codes: J18.9 - Pneumonia, unspecified organism MALATHI FISHER MD Aug 31, 2020 12:46
[2020-08-31] MEDS: NS IV 1000 ML 1,000 ML IV SCH ×2 (13:45→23:41)
[2020-08-31] MEDS: CEFEPIME INJECTION 1,000 MG in WATER (STERILE) FOR INJECTION 10 ML IV SCH ×2 (17:11→23:41)
--- NOTE | 2020-08-31 17:20 | NUR ---
patient brother called at this time to speak to patient. patient is in the middle of a breathing treatment and not really willing to talk to brother at this time. family stated they would see him tomorrow, the plans were in the works to bring him home into his daughters care. After phone call patient became slightly agitated and started grabbing at bedding and sheets and having a harder times communicating needs to this RN . PRN anxiety medication requested at this time. orders for one time dosage of Xanax 0.25mg PO
[2020-08-31] MEDS ORDERED: ALPRAZolam 0.25 MG (XANAX) TAB PO ONE (17:45)
[2020-08-31] MEDS ORDERED: ALPRAZolam 0.25 MG (XANAX) TAB ONE (17:49)
[2020-08-31 19:44] VITALS: BP 167/72
[2020-08-31] MEDS: MELATONIN 3 MG TABLET PO PRN (21:11)
--- NOTE | 2020-08-31 21:30 | NUR ---
pt hyperventilating, struggling to catch his breath while sitting in bed, trying hard to be in a tripod position. breathing treatment and morphine were given, did not help with pt's breathing. pt looks very uncomfortable. DR. Haji called regarding pt's hyperventilation and difficulty breathing that has not been resolved with what is ordered. gave order for 0.5mg ativan
[2020-08-31] MEDS ORDERED: LORazepam INJ 2 MG/ML (ATIVAN) VIAL IVP PRN ×2 (22:30→23:00)
[2020-09-01] VITALS (7 sets, daily range): BP systolic 93–167; BP diastolic 61–99
--- NOTE | 2020-09-01 06:27 | Diagnostic Imaging Report ---
PROCEDURE: CT head wo r/o stroke. TECHNIQUE: Multiple contiguous axial images were obtained through the brain without the use of intravenous contrast. Auto Exposure Controls were utilized during the CT exam to meet ALARA standards for radiation dose reduction. INDICATION: Strokelike symptoms CT HEAD: CT images of the head were obtained. FINDINGS: Ventricles and sulci are within normal limits for size. There is no intracranial hemorrhage identified. There is no abnormal mass effect or shift of midline structures. Mucous retention cyst or polyp is present in the left maxillary sinus. There is atherosclerotic calcification within distal internal carotid and vertebral arteries. IMPRESSION: Unremarkable CT of the head. Dictated by: Dictated on workstation # [id number]
--- NOTE | 2020-09-01 06:56 | NUR ---
THIS IS A TIMELINE NOTE 0525- [facility] NOTIFIED THIS NURSE THAT PT'S FACE SEEMS DROOPY. THIS NURSE ENTERED PT ROOM TO ASSESS PT, RIGHT SIDE DROPPING OF THE EYE LIP AND MOUTH NOTED. PT RESPONDS TO NAME. PUPILS EQUAL AND REACT TO LIGHT. PT SMILED, MILD DROOPING WAS NOTED. THIS NURSE ASKED PT TO RAISE EYEBROWS AND CLOSE EYES, PT DID NOT FOLLOW COMMANDS. ATTEMPT TO ASSESS FOR MORE STROKE LIKE SYMPTOMS, BUT PT DOES NOT REPLY TO QUESTIONS, JUST STARES OFF AT THE WALL. B/P AT THIS TIME 136/91. DR FISHER CALLED AT THIS TIME REGARDING THE ABOVE. SAYS PT HAS BEEN LOOKING THAT WAY, NO NEW ORDERS AT THIS TIME. 0547- THIS NURSE CHECKED ON PT. NOTICED THAT PT'S FACIAL DROOPING HAS NOTICEABLY WORSENED. B/P 123/58 WHEN THIS NURSE TRIED GAIN PT'S ATTENTION BY SAYING PT NAME, HE DID NOT RESPOND. DR FISHER CALLED AGAIN, SAID TO FOLLOW HOSPITAL'S STROKE PROTOCOL 0550- PT HOB GREATER THAN 30 DEGREES, 3L O2 @92%. FINANCIAL ADMINISTRATOR CALLED REGARDING PT'S STROKE LIKE SYMPTOMS. HEAD CT ORDER PUT IN, ANOTHER RN CALLED RADIOLOGY FOR CT. 0555-BEDSIDE BLOOD GLUCOSE OBTAINED PER PROTOCOL, BLOOD SUGAR 82. STARTED Q15MIN VITALS 0610- PT OFF FLOOR FOR HEAD CT 0620- PT BACK FROM CT, ALERT, STILL NOT FOLLOWING MANY COMMANDS OR ANSWERING QUESTIONS. B/P 115/73. ATTEMPT TO DO NIH STROKE SCALE AT [address] FISHER NOTIFIED AT 0639. PARASITOLOGY TEACHER ASKED THIS NURSE TO GIVE A NUMBER TO DISCUSS CT FINDINGS. DR FISHER WAS GIVEN THE NUMBER BY THIS NURSE.
[2020-09-01] MEDS: CEFEPIME INJECTION 1,000 MG in WATER (STERILE) FOR INJECTION 10 ML IV SCH (07:30)
[2020-09-01] MEDS ORDERED: ENOXAPARIN 60 MG/0.6 ML (LOVENOX) SYR SC SCH (08:00)
--- NOTE | 2020-09-01 08:30 | NUR ---
Patients family called twice this AM to ask about patients condition and discharge planning. Genaro at 0815 and Chelo at 0830. This RN spoke with Chelo, updated her on patient status and notified her that I do not handle discharge but that social work and or palliative care RN would be in touch at some point today regarding further questions.
[2020-09-01] MEDS: morphine ER 30 MG (MS CONTIN) TAB PO SCH ×2 (08:41→08:47)
[2020-09-01] MEDS: DOCUSATE SODIUM 100 MG (COLACE) CAP PO SCH (08:47)
[2020-09-01] MEDS: polyethylene glycoL POWDER 17 GM (MIRALAX) PACK PO SCH (08:47)
[2020-09-01] MEDS: SENNOSIDES 8.6 MG (SENOKOT) TAB PO SCH (08:48)
[2020-09-01 08:54] LABS: BASOPHILS % (AUTO) 0 % (0-10); HEMATOCRIT 41 % (40-54); LYMPHOCYTES % (AUTO) 6 % (12-44)
[2020-09-01 08:56] LABS: BASOPHILS # (AUTO) 0.1 10^3/uL (0.0-0.1); EOSINOPHILS # (AUTO) 0.6 10^3/uL (0.0-0.3); EOSINOPHILS % (AUTO) 3 % (0-10); HEMOGLOBIN 12.5 g/dL (13.3-17.7); LYMPHOCYTES # (AUTO) 1.2 10^3/uL (1.0-4.0); MEAN CORPUSCULAR HEMOGLOBIN 29 pg (25-34); MEAN CORPUSCULAR HGB CONC 31 g/dL (32-36); MEAN CORPUSCULAR VOLUME 94 fL (80-99); MEAN PLATELET VOLUME 10.4 fL (9.0-12.2); MONOCYTES # (AUTO) 0.9 10^3/uL (0.0-1.0); MONOCYTES % (AUTO) 4 % (0-12); NEUTROPHILS # (AUTO) 16.6 10^3/uL (1.8-7.8); NEUTROPHILS % (AUTO) 84 % (42-75); PLATELET COUNT 170 10^3/uL (130-400); WHITE BLOOD COUNT 19.9 10^3/uL (4.3-11.0)
[2020-09-01 09:09] LABS: POTASSIUM 5.3 MMOL/L (3.6-5.0)
[2020-09-01 09:10] LABS: CALCIUM 9.1 MG/DL (8.5-10.1)
[2020-09-01 09:15] LABS: CREATININE SERUM 1.34 MG/DL (0.60-1.30)
[2020-09-01] MEDS ORDERED: MORP45CP4 PO (09:16)
--- NOTE | 2020-09-01 09:18 | Discharge Summary ---
Diagnosis/Chief Complaint Date of Admission Aug 22, 2020 at 10:54 Date of Discharge Discharge Date: Sep 01, 2020 Primary Care Olive Valenzuela Discharge Diagnosis (1) Pain due to malignant neoplasm metastatic to bone Status: Acute (2) Lung cancer metastatic to bone Status: Acute (3) PNA (pneumonia) Status: Acute Discharge Summary Procedures/Consulations Dr Gil- Oncology Dr Alfred- radiation Oncology Discharge Physical Exam Allergies: Coded Allergies: codeine (Verified Allergy, Unknown, pt has received Lortab & Morphine w/o issue, 08/20/20) gabapentin (Verified Allergy, Unknown, 08/13/20) AGGITATION Vitals & I&Os Vital Signs Date Time Temp Pulse Resp B/P (MAP) Pulse Ox O2 Delivery O2 Flow Rate FiO2 09/01/20 11:17 36.9 95 26 93/61 94 Nasal Cannula 4.00 General Appearance: No Apparent Distress, Chronically ill Respiratory: Lungs Clear Cardiovascular: Regular Rate, Rhythm, No Murmur Neurologic/Psychiatric: Alert, Oriented x3 Hospital Course patient was admitted to swing bed due to debility from metastatic lung cancer. He worked with physical therapy and worked on a pain regimen. His symptoms improved. He underwent radiation for palliative relief. He ultimately elected with the help with his family to enroll in hospice through [facility]. he completed most but not all of the doses of radiation as well as his family and he were insistent on getting him home that day. he is to follow-up with his primary care provider, LOGAN Atkins, to follow up this hospital stay. Labs (last 24 hrs) Patient resulted labs reviewed. Pending Labs Imaging: Reviewed Imaging Report Discussion & Recommendations Discharge Planning: >30 minutes discharge planning Discharge Home Medications: Active Scripts Active Morphine Sulfate ER (Morphine Sulfate) 45 Mg Cpmp.24hr 45 Mg PO DAILY 14 Days Reported Hydrocodone-Acetamin 7.5-325 (Hydrocodone/Acetaminophen) 1 Each Tablet 1 Ea PO DAILY PRN Lisinopril 5 Mg Tablet 5 Mg PO DAILY Aspirin 81 Mg Tab.chew 81 Mg PO DAILY Clopidogrel (Clopidogrel Bisulfate) 75 Mg Tablet 75 Tab PO DAILY Instructions to patient/family Please see electronic discharge instructions given to patient. Problem Qualifiers (1) PNA (pneumonia): Pneumonia type: due to unspecified organism Laterality: left Lung location: lower lobe of lung Qualified Codes: J18.9 - Pneumonia, unspecified organism QUIQUE ATWOOD MD Sep 01, 2020 09:18
[2020-09-01 09:49] LABS: BAND NEUTROPHILS 5 %; EOSINOPHILS % (MANUAL) 3 %; LYMPHOCYTES % (MANUAL) 12 %; MONOCYTES % (MANUAL) 7 %; NEUTROPHILS % (MANUAL) 73 %; TOXIC GRANULATION/VACUOLAZATIO 3+
[2020-09-01] MEDS: NS IV 1000 ML 1,000 ML IV SCH (09:56)
--- NOTE | 2020-09-01 09:58 | NUR ---
Nurses note read. Daughter Chelo has been contacted at approximately 815 by [facility] for discharge planning. Vanessa reported that the family would like to get Saeid home with [facility] today. He will need a bed, oxygen, and a bedside commode from the hospice agency. Vanessa is f/u with [facility] to get that equipment in place prior to discharging from the hospital. I am filling out EMS non emergent transport for the patient so that he can be taken by the ambulance to his home for comfort care. He is currently not able to transfer from bed to chair d/t uncontrolled pain and severe muscle weakness. He is end of life care per his DPOA daughter Chelo's declaration and is also using oxygen for comfort. He will need oxygen via transport. This information was faxed to EMS. F/U with Yue and she reports that [facility] will have equipment delivered to his home at 1030 a.m. After we confirm with Hospice and family that the equipment is in place for the patient then EMS can be called for transport. I left EMS transport information with the community director. I put Saeid's Extended Release Morphine script in his red packet and notified [facility] of that. Updated the primary care nurse of the above information.
--- NOTE | 2020-09-01 10:41 | Therapy Team Discharge Summary ---
Therapy Discharge Summary Discharge Recommendations Date of Discharge Physical Therapy Patient dismissing on this date to home with family and hospice. Occupational Therapy Decreased Activ Tolerance, Decreased UE Strength, Dependent Transfers, Impaired Bed Mobility, Impaired Funct Balance, Impaired I ADL's, Impaired Self-Care Skills PT Deputy Chief Counsel Goals [facility]ci Goals PT Deputy Chief Counsel Goals Time Frame: Sep 13, 2020 Roll Left to Right (QC): 3 Sit to Lying (QC): 3 Lying-Sitting on Side/Bed(QC): 3 Sit to Stand (QC): 3 Chair/Ddk-zn-Evcmw Xfer(QC): 3 Car Transfer (QC): 3 Does the Patient Walk: No and Walking Goal NOT indicated Walk 10 feet (QC): 3 Walk 10ft-Uneven Surface(QC): 88 Walk 50ft with 2 Turns (QC): 88 Walk 150 ft (QC): 88 Does the Pt use WC or Scooter?: Yes Wheel 50 feet with 2 turns (QC: 2 1 Step (curb) (QC): 88 4 Steps (QC): 88 12 Steps (QC): 88 Picking up an Object (QC): 88 OT Deputy Chief Counsel Goals Deputy Chief Counsel Goals Time Frame: Sep 11, 2020 Eating (QC): 5 Oral Hygiene (QC): 4 Shower/Bathe Self (QC): 88 Upper Body Dressing (QC): 4 Lower Body Dressing (QC): 3 On/Off Footwear (QC): 3 Toileting Hygiene (QC): 3 Toilet/Commode Transfer (QC): 3 Additional Goals: 1-Demonstrate ADL Tasks, 2-Verbalize Understanding, 3- ImproveStrength/Osiel 1=Demonstrate adherence to instructed precautions during ADL tasks. 2=Patient will verbalize/demonstrate understanding of assistive devices/modifications for ADL. 3=Patient will improve strength/tolerance for activity to enable patient to perform ADL's. WENDY GOEL PT Sep 01, 2020 10:41
--- NOTE | 2020-09-01 11:39 | NUR ---
Arrangements completed for pt discharge to his home per his wishes as well as Chelo,SHYANNE and daughter She will be his primary caregiver and [facility] hospice to follow per their meeting with SHYANNE on Tuesday the . Chelo is aware that pt's condition has deteriorated over the week-end and is prepared to provide end of life care. EMS provided transport to pt's home in [place] and [facility] hospice alerted as well as family of time of departure. DME equipment has been delivered to his home.
--- NOTE | 2020-09-01 14:14 | Therapy Team Discharge Summary ---
Therapy Discharge Summary Discharge Recommendations Date of Discharge Sep 01, 2020 at 11:17 Therapy D/C Recommendations: 24 hr Supervision Occupational Therapy Pt. has been seen by occupational therapy to increase overall strength. Pt. has discharged home with hospice this date due to change in medical status. No goals met at this facility. Pt. to have 24 hour hospice care. Decreased Activ Tolerance, Decreased UE Strength, Dependent Transfers, Impaired Bed Mobility, Impaired Funct Balance, Impaired I ADL's, Impaired Self-Care Skills PT Intellectual Property Lawyer Goals Intellectual Property Lawyer Goals PT Intellectual Property Lawyer Goals Time Frame: Sep 13, 2020 Roll Left to Right (QC): 3 Sit to Lying (QC): 3 Lying-Sitting on Side/Bed(QC): 3 Sit to Stand (QC): 3 Chair/Nfj-xc-Vnvwh Xfer(QC): 3 Car Transfer (QC): 3 Does the Patient Walk: No and Walking Goal NOT indicated Walk 10 feet (QC): 3 Walk 10ft-Uneven Surface(QC): 88 Walk 50ft with 2 Turns (QC): 88 Walk 150 ft (QC): 88 Does the Pt use WC or Scooter?: Yes Wheel 50 feet with 2 turns (QC: 2 1 Step (curb) (QC): 88 4 Steps (QC): 88 12 Steps (QC): 88 Picking up an Object (QC): 88 OT Skilled Nursing Goals Intellectual Property Lawyer Goals Time Frame: Sep 11, 2020 Eating (QC): 5 (not met) Oral Hygiene (QC): 4 (not met) Shower/Bathe Self (QC): 88 Upper Body Dressing (QC): 4 (not met) Lower Body Dressing (QC): 3 (not met) On/Off Footwear (QC): 3 (not met) Toileting Hygiene (QC): 3 (not met) Toilet/Commode Transfer (QC): 3 (not met) Additional Goals: 1-Demonstrate ADL Tasks, 2-Verbalize Understanding, 3- ImproveStrength/Osiel 1=Demonstrate adherence to instructed precautions during ADL tasks. 2=Patient will verbalize/demonstrate understanding of assistive devices/modifications for ADL. 3=Patient will improve strength/tolerance for activity to enable patient to perform ADL's. MARVIN MAGUIRE OT Sep 01, 2020 14:14
== END 2020-09-01 11:17 | disposition hospice, home (50) | DRG 849 ==
LOC: 4TH 10:54
PROVIDERS: ADMIT Family Medicine; ATTEND Family Medicine
PROC: 0TJB8ZZ Inspection of Bladder, Via Natural or Artificial Opening Endoscopic (ICD-10-PCS; principal; 2020-08-26)
DX: Z51.0 Encounter for antineoplastic radiation therapy (principal); A41.9 Sepsis, unspecified organism; R65.20 Severe sepsis without septic shock; J18.9 Pneumonia, unspecified organism; C34.90 Malignant neoplasm of unspecified part of unspecified bronchus or lung; C79.51 Secondary malignant neoplasm of bone; G89.3 Neoplasm related pain (acute) (chronic); R31.0 Gross hematuria; Z66 Do not resuscitate; Z51.5 Encounter for palliative care; E83.52 Hypercalcemia
CPT/HCPCS: 36415; 70450; 71045; 76937; 77336; 80048; 82962; 83880; 84145; 85007; 85025; 85027; 85379; 94640; 94760